=== PATIENT | female | born 1975 ===

== ENCOUNTER 2022-05-20 12:05 | Outpatient (REF) | payer OTHER, SELFPAY ==
--- NOTE | ~2022-05-20 | XR_ITS ---
EXAMINATION: XR BILATERAL SHOULDER XR BILATERAL HAND AND WRIST XR BILATERAL ANKLE XR BILATERAL FOOT CLINICAL INFORMATION: Spondylosis without myelopathy or radiculopathy. Pain. COMPARISON: None. TECHNIQUE: 3 views bilateral feet, 2 views bilateral ankle, 5 views each hand/wrist and 5 views each shoulder. FINDINGS: BILATERAL SHOULDER: There is normal glenohumeral and AC joint alignment. No bony erosive changes, loose bodies or periapical spurring. No soft tissue abnormality. BILATERAL HAND/WRIST. The intercarpal, carpometacarpal and interphalangeal joints are maintained normal. No bony erosive changes, acute fracture or loose bodies seen. No periosteal spurring. There is mild dorsal left soft tissue swelling. BILATERAL ANKLE: There is bilateral small calcaneal heel osteophytes. No visible acute fracture, dislocation or subluxation seen. The ankle mortise and subtalar joints are normal. There is bimalleolar soft tissue swelling. BILATERAL FOOT: There is a dorsal distal foot soft tissue swelling. No visible acute fracture, dislocation or subluxation seen. The joint spaces are maintained normal. The soft tissues are normal. XR/XR ankle LT min 3V IMPRESSION: Bilateral calcaneal heel enthesophytes. No visible acute fracture or dislocation seen. There is bilateral dorsal distal foot soft tissue swelling. Bilateral dorsal hand soft tissue swelling. No visible acute fracture, dislocation or subluxation seen. There is no visible fracture or dislocation involving the wrist or the hand. No bony abnormality is seen either. Unremarkable bilateral shoulders.
--- NOTE | ~2022-05-20 | XR_ITS ---
EXAMINATION: XR BILATERAL SHOULDER XR BILATERAL HAND AND WRIST XR BILATERAL ANKLE XR BILATERAL FOOT CLINICAL INFORMATION: Spondylosis without myelopathy or radiculopathy. Pain. COMPARISON: None. TECHNIQUE: 3 views bilateral feet, 2 views bilateral ankle, 5 views each hand/wrist and 5 views each shoulder. FINDINGS: BILATERAL SHOULDER: There is normal glenohumeral and AC joint alignment. No bony erosive changes, loose bodies or periapical spurring. No soft tissue abnormality. BILATERAL HAND/WRIST. The intercarpal, carpometacarpal and interphalangeal joints are maintained normal. No bony erosive changes, acute fracture or loose bodies seen. No periosteal spurring. There is mild dorsal left soft tissue swelling. BILATERAL ANKLE: There is bilateral small calcaneal heel osteophytes. No visible acute fracture, dislocation or subluxation seen. The ankle mortise and subtalar joints are normal. There is bimalleolar soft tissue swelling. BILATERAL FOOT: There is a dorsal distal foot soft tissue swelling. No visible acute fracture, dislocation or subluxation seen. The joint spaces are maintained normal. The soft tissues are normal. XR/XR foot RT min 3V IMPRESSION: Bilateral calcaneal heel enthesophytes. No visible acute fracture or dislocation seen. There is bilateral dorsal distal foot soft tissue swelling. Bilateral dorsal hand soft tissue swelling. No visible acute fracture, dislocation or subluxation seen. There is no visible fracture or dislocation involving the wrist or the hand. No bony abnormality is seen either. Unremarkable bilateral shoulders.
--- NOTE | ~2022-05-20 | XR_ITS ---
EXAMINATION: XR BILATERAL SHOULDER XR BILATERAL HAND AND WRIST XR BILATERAL ANKLE XR BILATERAL FOOT CLINICAL INFORMATION: Spondylosis without myelopathy or radiculopathy. Pain. COMPARISON: None. TECHNIQUE: 3 views bilateral feet, 2 views bilateral ankle, 5 views each hand/wrist and 5 views each shoulder. FINDINGS: BILATERAL SHOULDER: There is normal glenohumeral and AC joint alignment. No bony erosive changes, loose bodies or periapical spurring. No soft tissue abnormality. BILATERAL HAND/WRIST. The intercarpal, carpometacarpal and interphalangeal joints are maintained normal. No bony erosive changes, acute fracture or loose bodies seen. No periosteal spurring. There is mild dorsal left soft tissue swelling. BILATERAL ANKLE: There is bilateral small calcaneal heel osteophytes. No visible acute fracture, dislocation or subluxation seen. The ankle mortise and subtalar joints are normal. There is bimalleolar soft tissue swelling. BILATERAL FOOT: There is a dorsal distal foot soft tissue swelling. No visible acute fracture, dislocation or subluxation seen. The joint spaces are maintained normal. The soft tissues are normal. XR/XR ankle RT min 3V IMPRESSION: Bilateral calcaneal heel enthesophytes. No visible acute fracture or dislocation seen. There is bilateral dorsal distal foot soft tissue swelling. Bilateral dorsal hand soft tissue swelling. No visible acute fracture, dislocation or subluxation seen. There is no visible fracture or dislocation involving the wrist or the hand. No bony abnormality is seen either. Unremarkable bilateral shoulders.
--- NOTE | ~2022-05-20 | XR_ITS ---
EXAMINATION: XR BILATERAL SHOULDER XR BILATERAL HAND AND WRIST XR BILATERAL ANKLE XR BILATERAL FOOT CLINICAL INFORMATION: Spondylosis without myelopathy or radiculopathy. Pain. COMPARISON: None. TECHNIQUE: 3 views bilateral feet, 2 views bilateral ankle, 5 views each hand/wrist and 5 views each shoulder. FINDINGS: BILATERAL SHOULDER: There is normal glenohumeral and AC joint alignment. No bony erosive changes, loose bodies or periapical spurring. No soft tissue abnormality. BILATERAL HAND/WRIST. The intercarpal, carpometacarpal and interphalangeal joints are maintained normal. No bony erosive changes, acute fracture or loose bodies seen. No periosteal spurring. There is mild dorsal left soft tissue swelling. BILATERAL ANKLE: There is bilateral small calcaneal heel osteophytes. No visible acute fracture, dislocation or subluxation seen. The ankle mortise and subtalar joints are normal. There is bimalleolar soft tissue swelling. BILATERAL FOOT: There is a dorsal distal foot soft tissue swelling. No visible acute fracture, dislocation or subluxation seen. The joint spaces are maintained normal. The soft tissues are normal. XR/XR foot LT min 3V IMPRESSION: Bilateral calcaneal heel enthesophytes. No visible acute fracture or dislocation seen. There is bilateral dorsal distal foot soft tissue swelling. Bilateral dorsal hand soft tissue swelling. No visible acute fracture, dislocation or subluxation seen. There is no visible fracture or dislocation involving the wrist or the hand. No bony abnormality is seen either. Unremarkable bilateral shoulders.
--- NOTE | ~2022-05-20 | XR_ITS ---
EXAMINATION: XR BILATERAL SHOULDER XR BILATERAL HAND AND WRIST XR BILATERAL ANKLE XR BILATERAL FOOT CLINICAL INFORMATION: Spondylosis without myelopathy or radiculopathy. Pain. COMPARISON: None. TECHNIQUE: 3 views bilateral feet, 2 views bilateral ankle, 5 views each hand/wrist and 5 views each shoulder. FINDINGS: BILATERAL SHOULDER: There is normal glenohumeral and AC joint alignment. No bony erosive changes, loose bodies or periapical spurring. No soft tissue abnormality. BILATERAL HAND/WRIST. The intercarpal, carpometacarpal and interphalangeal joints are maintained normal. No bony erosive changes, acute fracture or loose bodies seen. No periosteal spurring. There is mild dorsal left soft tissue swelling. BILATERAL ANKLE: There is bilateral small calcaneal heel osteophytes. No visible acute fracture, dislocation or subluxation seen. The ankle mortise and subtalar joints are normal. There is bimalleolar soft tissue swelling. BILATERAL FOOT: There is a dorsal distal foot soft tissue swelling. No visible acute fracture, dislocation or subluxation seen. The joint spaces are maintained normal. The soft tissues are normal. XR/XR hand wrist LT IMPRESSION: Bilateral calcaneal heel enthesophytes. No visible acute fracture or dislocation seen. There is bilateral dorsal distal foot soft tissue swelling. Bilateral dorsal hand soft tissue swelling. No visible acute fracture, dislocation or subluxation seen. There is no visible fracture or dislocation involving the wrist or the hand. No bony abnormality is seen either. Unremarkable bilateral shoulders.
--- NOTE | ~2022-05-20 | XR_ITS ---
EXAMINATION: XR BILATERAL SHOULDER XR BILATERAL HAND AND WRIST XR BILATERAL ANKLE XR BILATERAL FOOT CLINICAL INFORMATION: Spondylosis without myelopathy or radiculopathy. Pain. COMPARISON: None. TECHNIQUE: 3 views bilateral feet, 2 views bilateral ankle, 5 views each hand/wrist and 5 views each shoulder. FINDINGS: BILATERAL SHOULDER: There is normal glenohumeral and AC joint alignment. No bony erosive changes, loose bodies or periapical spurring. No soft tissue abnormality. BILATERAL HAND/WRIST. The intercarpal, carpometacarpal and interphalangeal joints are maintained normal. No bony erosive changes, acute fracture or loose bodies seen. No periosteal spurring. There is mild dorsal left soft tissue swelling. BILATERAL ANKLE: There is bilateral small calcaneal heel osteophytes. No visible acute fracture, dislocation or subluxation seen. The ankle mortise and subtalar joints are normal. There is bimalleolar soft tissue swelling. BILATERAL FOOT: There is a dorsal distal foot soft tissue swelling. No visible acute fracture, dislocation or subluxation seen. The joint spaces are maintained normal. The soft tissues are normal. XR/XR hand wrist RT IMPRESSION: Bilateral calcaneal heel enthesophytes. No visible acute fracture or dislocation seen. There is bilateral dorsal distal foot soft tissue swelling. Bilateral dorsal hand soft tissue swelling. No visible acute fracture, dislocation or subluxation seen. There is no visible fracture or dislocation involving the wrist or the hand. No bony abnormality is seen either. Unremarkable bilateral shoulders.
--- NOTE | ~2022-05-20 | XR_ITS ---
EXAMINATION: XR BILATERAL SHOULDER XR BILATERAL HAND AND WRIST XR BILATERAL ANKLE XR BILATERAL FOOT CLINICAL INFORMATION: Spondylosis without myelopathy or radiculopathy. Pain. COMPARISON: None. TECHNIQUE: 3 views bilateral feet, 2 views bilateral ankle, 5 views each hand/wrist and 5 views each shoulder. FINDINGS: BILATERAL SHOULDER: There is normal glenohumeral and AC joint alignment. No bony erosive changes, loose bodies or periapical spurring. No soft tissue abnormality. BILATERAL HAND/WRIST. The intercarpal, carpometacarpal and interphalangeal joints are maintained normal. No bony erosive changes, acute fracture or loose bodies seen. No periosteal spurring. There is mild dorsal left soft tissue swelling. BILATERAL ANKLE: There is bilateral small calcaneal heel osteophytes. No visible acute fracture, dislocation or subluxation seen. The ankle mortise and subtalar joints are normal. There is bimalleolar soft tissue swelling. BILATERAL FOOT: There is a dorsal distal foot soft tissue swelling. No visible acute fracture, dislocation or subluxation seen. The joint spaces are maintained normal. The soft tissues are normal. XR/XR shoulder RT min 2V IMPRESSION: Bilateral calcaneal heel enthesophytes. No visible acute fracture or dislocation seen. There is bilateral dorsal distal foot soft tissue swelling. Bilateral dorsal hand soft tissue swelling. No visible acute fracture, dislocation or subluxation seen. There is no visible fracture or dislocation involving the wrist or the hand. No bony abnormality is seen either. Unremarkable bilateral shoulders.
--- NOTE | ~2022-05-20 | XR_ITS ---
EXAMINATION: XR BILATERAL SHOULDER XR BILATERAL HAND AND WRIST XR BILATERAL ANKLE XR BILATERAL FOOT CLINICAL INFORMATION: Spondylosis without myelopathy or radiculopathy. Pain. COMPARISON: None. TECHNIQUE: 3 views bilateral feet, 2 views bilateral ankle, 5 views each hand/wrist and 5 views each shoulder. FINDINGS: BILATERAL SHOULDER: There is normal glenohumeral and AC joint alignment. No bony erosive changes, loose bodies or periapical spurring. No soft tissue abnormality. BILATERAL HAND/WRIST. The intercarpal, carpometacarpal and interphalangeal joints are maintained normal. No bony erosive changes, acute fracture or loose bodies seen. No periosteal spurring. There is mild dorsal left soft tissue swelling. BILATERAL ANKLE: There is bilateral small calcaneal heel osteophytes. No visible acute fracture, dislocation or subluxation seen. The ankle mortise and subtalar joints are normal. There is bimalleolar soft tissue swelling. BILATERAL FOOT: There is a dorsal distal foot soft tissue swelling. No visible acute fracture, dislocation or subluxation seen. The joint spaces are maintained normal. The soft tissues are normal. XR/XR shoulder LT min 2V IMPRESSION: Bilateral calcaneal heel enthesophytes. No visible acute fracture or dislocation seen. There is bilateral dorsal distal foot soft tissue swelling. Bilateral dorsal hand soft tissue swelling. No visible acute fracture, dislocation or subluxation seen. There is no visible fracture or dislocation involving the wrist or the hand. No bony abnormality is seen either. Unremarkable bilateral shoulders.
[2022-05-20 12:58] LABS: MANUAL DIFF FLAG NO
[2022-05-20 13:16] LABS: Basophils Absolute Auto 0.1 X10*3/uL (0.0-0.2); Basophils Percent Auto 0.9 % (0-2); Eosinophils Absolute Auto 0.3 X10*3/uL (0.0-0.4); Eosinophils Percent Auto 4.1 % (0-4); Hematocrit 46.5 % (37.0-47.0); Imm Gran Abs Auto 0.02 X10*3/uL (0.00-0.03); Imm Gran Pct Auto 0.3 % (0.0-0.4); Lymphocytes Absolute Auto 1.5 X10*3/uL (1.2-4.9); Lymphocytes Percent Auto 21.4 % (20-40); Mean Corpuscular HGB Conc 34.4 g/dl (31.0-35.0); Mean Corpuscular Hemoglobin 30.5 pg (27.0-33.0); Mean Corpuscular Volume 88.6 fL (80.0-98.0); Mean Platelet Volume 9.1 fL (9.4-12.3); Monocytes Absolute Auto 0.6 X10*3/uL (0.1-1.2); Monocytes Percent Auto 8.7 % (2-11); Neutrophils Absolute Auto 4.5 x10*3/uL (2.0-8.3); Neutrophils Percent Auto 64.6 % (45-73); Platelet Count 265 X10*3/uL (160-400); Red Blood Count 5.25 X10*6/uL (4.20-5.50); Red Cell Distribution Width 12.1 % (11.0-16.0); White Blood Count 6.9 X10*3/uL (4.8-10.8)
[2022-05-20 13:24] LABS: Appearance Urine Clear; Color Urine Dark Yellow; Glucose Urine UA 250 mg/dL (Negative); Leukocyte Esterase Urine Negative (Negative); Nitrite Urine Negative (Negative); Urine Blood Negative (Negative); Urine Ketones Negative (Negative); Urine Protein Negative (Neg-Trace)
[2022-05-20 13:26] LABS: Bacteria Urine None Seen (None Seen); Hyaline Casts Urine 0-2 /LPF (0-2); RBC Urine 0-2 /HPF (0-2); Squamous Epithelial Cell Urine 0-2 /HPF (0-2); WBC Urine 0-5 /HPF (0-5)
[2022-05-20 13:45] LABS: Alanine Aminotransferase 56 U/L (0-31); Albumin Level 4.5 g/dL (3.5-5.0); Alkaline Phosphatase 112 U/L (39-117); Anion Gap 12 (12-20); Aspartate Amino Transferase 33 U/L (5-31); Bilirubin Total 0.7 mg/dL (0.0-1.0); Blood Urea Nitrogen 16 mg/dL (9-16); C Reactive Protein 0.35 mg/dL (< or = 0.50); Calcium 9.6 mg/dL (8.4-10.2); Carbon Dioxide 27 mmol/L (22-29); Chloride 106 mmol/L (96-108); Estimated Glomerular Filt Rate > 60; Glucose Random 96 mg/dL (60-115); Potassium 3.7 mmol/L (3.3-5.1); Sodium 141 mmol/L (135-145); Total Protein 7.6 g/dL (6.5-8.0)
[2022-05-20 14:13] LABS: Erythrocyte Sedimentation Rate 9 MM/HR (0-20)
[2022-05-20 14:25] LABS: Creatinine Urine 153.03 mg/dL; Protein/Creatinine Ratio, Ur 0.06 (<0.2); Total Protein Urine Random 9 mg/dL (<12)
[2022-05-21 14:25] LABS: HIV AB/AG Nonreactive (Nonreactive)
[2022-05-21 15:37] LABS: Complement C3 157 mg/dL (83-193)
[2022-05-24 09:47] LABS: Anti Nuclear Antibody Screen NEGATIVE (NEGATIVE)
[2022-05-24 13:46] LABS: Anti DNA DS Antibody <1 IU/mL; Antibody to SS-A Antigen <1.0 NEG AI (<1.0 NEG); Antibody to SS-B Antigen <1.0 NEG AI (<1.0 NEG); SM/Ribonucleoprotein Ab <1.0 NEG AI (<1.0 NEG); Smith Protein <1.0 NEG AI (<1.0 NEG)
[2022-05-24 15:11] LABS: IgA 200 mg/dL (47-310); IgG 1599 mg/dL (600-1640); IgM 77 mg/dL (50-300)
[2022-05-26 14:41] LABS: Mitochondrial Antibodies NEGATIVE (NEGATIVE)
[2022-05-26 21:37] LABS: Liver Kidney Microsomal Ab <=20.0 U (<=20.0)
[2022-05-27 23:57] LABS: Smooth Muscle Antibody <20 U (<20)
[2022-05-28 05:16] LABS: Angiotensin Converting Enzyme 69 U/L (9-67)
== END 2022-05-20 12:06 | disposition home or self-care (01) ==
LOC: HO.10HDL 12:05
PROVIDERS: Visit Provider Student in an Organized Health Care Education/Training Program
DX: M47.819 Spondylosis without myelopathy or radiculopathy, site unspecified (principal); M79.7 Fibromyalgia; M13.80 Other specified arthritis, unspecified site; R74.01 Elevation of levels of liver transaminase levels; Z11.59 Encounter for screening for other viral diseases; Z79.899 Other long term (current) drug therapy; Z79.52 Long term (current) use 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
CPT/HCPCS: 36415; 73030; 73110; 73130; 73610; 73630; 80053; 81001; 82164; 82550; 82784; 84156; 85025; 85652; 86015; 86038; 86039; 86140; 86160; 86225; 86235; 86255; 86256; 86334; 86376; 87389; 99202

== ENCOUNTER 2022-06-02 15:07 | Outpatient (REF) | payer OTHER, SELFPAY ==
--- NOTE | ~2022-06-02 | MR_ITS ---
EXAMINATION: MR SACROILIAC JOINTS/PELVIS WITHOUT CONTRAST, BILATERAL CLINICAL INFORMATION: Spondylosis without myelopathy. Patient reports back and bilateral leg pain, right leg numbness. COMPARISON: None TECHNIQUE: MRI of the pelvis was performed without contrast on a high-field MRI scanner utilizing sacroiliac joint protocol with axial and coronal sequences perpendicular and parallel to the plane of the sacrum. FINDINGS: BONES/JOINTS: Right Sacroiliac Joint: There is subtle decreased T1 and T2 signal surrounding the anterior superior portion of the sacroiliac joint. There is mild marrow edema on the sacral side of the joint. No discrete fracture line. Minimal, if any, marginal osteophytes. No joint effusion. No marginal erosions. No surrounding soft tissue edema. Left Sacroiliac Joint: Normal. Remaining visualized bones are normal. Partially visualized hip joints and symphysis pubis are unremarkable. In the partially visualized lumbosacral spine, there are degenerative disc changes present at L5-S1 with mild bulging of the disc. There is also at least mild bilateral facet arthrosis at L5-S1. MUSCLES/TENDONS: Unremarkable. NEUROVASCULAR STRUCTURES: Unremarkable. SUBCUTANEOUS SOFT TISSUES: Normal. INTRAPELVIC SOFT TISSUES: Unremarkable. MR/MR sacroiliac joint AMIRA wo con IMPRESSION: 1. Mild abnormality of the right sacroiliac joint with an appearance most compatible with mild osteoarthritis. Possible concomitant stress reaction in the sacrum. No discrete fracture line. 2. Mild spondylosis in the partially visualized lumbosacral spine with degenerative changes present at L5-S1.
== END 2022-06-02 15:08 | disposition home or self-care (01) ==
LOC: HO.MRI 15:07
PROVIDERS: Visit Provider Student in an Organized Health Care Education/Training Program
DX: M47.819 Spondylosis without myelopathy or radiculopathy, site unspecified (principal)
CPT/HCPCS: 72195

== ENCOUNTER 2022-06-03 09:10 | Outpatient (REF) | payer OTHER, SELFPAY ==
--- NOTE | ~2022-06-03 | MM_ITS ---
EXAMINATION: BONE DENSITOMETRY CLINICAL INDICATION: Long-term, current, use 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. COMPARISON: None (current study represents initial baseline exam). TECHNIQUE: Using a [employer] (PRIMP) DXA System (software version: 13.1) manufactured by [employer], dual-energy x-ray absorptiometry was performed of the lumbar spine and left hip. The images are of good technical quality. Summary results are attached. FINDINGS: AP SPINE L1-L4: BMD 1.110 g/cm2, Z-score -1.5, T-score -0.6, normal. LEFT FEMUR, NECK: BMD 0.888 g/cm2, Z-score -1.1, T-score -1.1, osteopenia. LEFT FEMUR, TOTAL: BMD 1.019 g/cm2, Z-score -0.3, T-score 0.1, normal. IDENTIFIED RISK FACTORS: Early menopause, secondary osteoporosis, rheumatoid arthritis, osteoporosis, recurrent falls, height loss, hysterectomy, bilateral oophorectomy. HISTORY OF FRACTURE: None listed. MEDICATIONS: None listed. MM/XR DEXA axial skeleton IMPRESSION: 1. DIAGNOSIS: Osteopenia based on the lowest T-score value of -1.1 in the femoral neck applying World Health Organization criteria. 2. 10-YEAR FRACTURE RISK PREDICTION, FRAX: Major osteoporotic fracture (clinical spine, forearm, hip or shoulder) 2.2%. Hip fracture 0.1%. 3. Treatment Recommendations: NOF guidelines recommend consideration for treatment in postmenopausal women and men age 50 and older presenting with the following: -A hip or vertebral (clinical or morphometric) fracture. -T-score less than or equal to -2.5 at the femoral neck or spine after appropriate evaluation to exclude secondary causes. -Low bone mass at the hip or spine and a 10-year fracture probability by FRAX of greater than or equal to 3% for hip fracture or greater than or equal to 20% for major osteoporotic fracture based on the [place] adapted WHO algorithm. 4. Other Recommendations: All treatment decisions require clinical judgment and consideration of individual patient factors, including patient preferences, comorbidities, previous drug use, risk factors not captured in the FRAX model (e.g. frailty, falls, vitamin D deficiency, increased bone turnover, interval significant decline in bone density) and possible under or overestimation of fracture risk by FRAX. Additional medical evaluation for secondary cause of low bone mineral density may be appropriate. FUTURE SCAN RECOMMENDATION: People with diagnosed cases of osteoporosis or at high risk for fracture should have regular bone mineral density tests. For patients eligible for Medicare, routine testing is allowed once every 2 years. The testing frequency can be increased to one year for patients who have rapidly progressing disease, those who are receiving or discontinuing medical therapy to restore bone mass, or have additional risk factors.
== END 2022-06-03 09:11 | disposition home or self-care (01) ==
LOC: HO.MAMMO 09:10
PROVIDERS: PCP Internal Medicine; Visit Provider Student in an Organized Health Care Education/Training Program
DX: Z13.820 Encounter for screening for osteoporosis (principal); Z79.52 Long term (current) use 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; Z78.0 Asymptomatic menopausal state
CPT/HCPCS: 77080

== ENCOUNTER → 2022-07-06 14:19 | Outpatient (BNVA) | payer MEDICAID, SELFPAY | PROVIDERS: PCP Internal Medicine; Visit Provider Student in an Organized Health Care Education/Training Program | DX: M06.00 Rheumatoid arthritis without rheumatoid factor, unspecified site (principal); M79.7 Fibromyalgia; M12.812 Other specific arthropathies, not elsewhere classified, left shoulder; Z79.52 Long term (current) use 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 | CPT/HCPCS: 99212 ==

== ENCOUNTER → 2022-07-15 09:02 | Outpatient (BNVA) | payer MEDICAID, SELFPAY | PROVIDERS: PCP Internal Medicine; Visit Provider Student in an Organized Health Care Education/Training Program | DX: Z13.89 Encounter for screening for other disorder (principal) ==

== ENCOUNTER → 2022-10-05 13:02 | Outpatient (BNVA) | payer OTHER, SELFPAY | PROVIDERS: PCP Internal Medicine; Visit Provider Student in an Organized Health Care Education/Training Program | DX: M06.00 Rheumatoid arthritis without rheumatoid factor, unspecified site (principal); M12.812 Other specific arthropathies, not elsewhere classified, left shoulder; M65.4 Radial styloid tenosynovitis [de Quervain]; G56.03 Carpal tunnel syndrome, bilateral upper limbs; Z79.52 Long term (current) use 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 | CPT/HCPCS: 99212 ==

== ENCOUNTER 2022-10-27 12:57 | Outpatient (REF) | payer OTHER, SELFPAY ==
--- NOTE | 2022-10-27 09:15 | EMG_ITS ---
Please see scanned EMG / Nerve Conduction Report. MTDD
== END 2022-10-27 12:58 | disposition home or self-care (01) ==
LOC: HO.NEURO 12:57
PROVIDERS: PCP Internal Medicine; Visit Provider Student in an Organized Health Care Education/Training Program
DX: G56.03 Carpal tunnel syndrome, bilateral upper limbs (principal)
CPT/HCPCS: 95885; 95913

== ENCOUNTER 2022-11-01 08:04 | Outpatient (REF) | payer OTHER, SELFPAY ==
--- NOTE | ~2022-11-01 | MR_ITS ---
EXAMINATION: MRI HAND WITHOUT CONTRAST, RIGHT INDICATION: Rheumatoid arthritis without rheumatoid factor, unspecified site. M06.00 COMPARISON: 05/20/2022 TECHNIQUE: Multiplanar MR imaging was obtained through the right hand on a 1.5 Fernanda magnet without intravenous contrast material. FINDINGS: Mild osteoarthritis is seen at the 1st CMC and triscaphe joints with nonuniform chondral thinning and marginal osteophytes. Additional mild osteoarthritis is suspected at the distal radioulnar joint. Small subchondral cystic focus in the scaphoid is likely degenerative in nature due to very mild radiocarpal osteoarthritis. Small foci of subcortical edema and cystic change at the index and long finger metacarpal heads are favored to be degenerative in nature. Primary erosions in this region less likely in the absence of erosions elsewhere. No joint effusions. No appreciable synovitis. Musculature is normal in signal intensity. No atrophy or edema. Tendons are intact without tears, tendinosis, or tenosynovitis. There is a small 6 x 4 x 3 mm ganglion cyst at the medial margin of the thumb MCP joint. The median nerve is thickened just proximal to the level of the carpal tunnel with a cross-sectional area of 0.3 square cm and slightly increased intrasubstance signal. Guyon's canal is unremarkable. MR/MR hand RT wo con IMPRESSION: 1. 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 2. Small foci of subcortical edema and cystic change at the index and long finger metacarpal heads are favored to be degenerative in nature. Primary erosions are felt to be unlikely. 3. Small 6 mm ganglion cyst at the medial margin of the thumb MCP joint. 4. Focal thickening and increased signal in the median nerve just proximal to the carpal tunnel. Recommend correlation for symptoms of carpal tunnel syndrome.
== END 2022-11-01 08:05 | disposition home or self-care (01) ==
LOC: HO.MRI 08:04
PROVIDERS: PCP Internal Medicine; Visit Provider Student in an Organized Health Care Education/Training Program
DX: M06.00 Rheumatoid arthritis without rheumatoid factor, unspecified site (principal)
CPT/HCPCS: 73218

== ENCOUNTER → 2022-11-03 08:21 | Outpatient (BNVA) | payer OTHER, SELFPAY | PROVIDERS: PCP Internal Medicine; Visit Provider Orthopaedic Surgery | DX: G56.03 Carpal tunnel syndrome, bilateral upper limbs (principal); M06.00 Rheumatoid arthritis without rheumatoid factor, unspecified site; M79.7 Fibromyalgia | CPT/HCPCS: 99202 ==

== ENCOUNTER 2022-11-11 11:33 | Day surgery (SDC) | payer OTHER, SELFPAY ==
--- NOTE | 2022-11-11 10:44 | W.PM.OPN ---
Operative Note Operative Note Date of Service: 11/11/22 Narrative: Preop diagnosis: 1. right Carpal tunnel syndrome Postop diagnosis: same Procedure: 1. right Carpal tunnel release Surgeon: Betina Dimas MD Anesthesia: local block using 1% lidocaine with epinephrine Findings: Thickened transverse carpal ligament. EBL: Less than 5 mL Specimens: None Complications: None Disposition: Brought to recovery room in stable condition Plan: Follow-up for 10-14 days for wound check and suture removal Indications: The patient is 47 years old, with right carpal tunnel syndrome that has been unresponsive to nonoperative management. The risks and benefits of operative treatment including but not limited to risk of damage to blood vessels, nerves, tendons, infection, persistent pain, persistent symptoms, or possible need for additional surgery were discussed with the patient and the patient wishes to proceed with surgery. Procedure: Once consent was obtained a local block was performed using a combination of 1% lidocaine with epinephrine. The patient was then brought back to the operating suite and placed on the operative table in supine position. The right upper extremity was prepped and draped in a standard surgical fashion. Once assured that we had a good block, a 2.0 cm longitudinal incision was made centered over the carpal tunnel. The incision was made through the skin to the subcutaneous tissues using a #15 blade. Dissection was made down to the level of the transverse carpal ligament with care being taken to protect the palmar cutaneous nerve. Once the transverse carpal ligament was clearly visualized, a longitudinal incision was made in the transverse carpal ligament 1st using a #15 blade, then using tenotomy scissors under direct visualization. Care was taken to look for and protect the motor branch of the median nerve when seen in this area. Once satisfied with our carpal tunnel release the wound was copiously irrigated with normal saline and hemostasis was obtained with a brief period of local pressure. The skin edges were reapproximated with some 5.0 nylon suture material and a sterile dressing was applied. The patient appears to have tolerated the procedure well and with no complications. All digits were well vascularized at the conclusion of the case.
[2022-11-11 13:02] VITALS: BMI 44.4
[2022-11-11 13:03] VITALS: BP 149/77; PULSE 68; RESP 18; TEMP 36.1; O2SAT 98
--- NOTE | 2022-11-11 14:39 | MHC.SHP ---
Pre-Procedural Eval Section A Date of Service: 11/11/22 The patient is an INPATIENT: No Changes since office visit: No Cold of Flu in the past 2 weeks, No New Medical Problems, No Changes in Medication and No Patient answered all questions The History & Physical has been completed within 30 days and I have reviewed it.: Yes Section B Chief Complaint: Carpal tunnel syndrome, right upper limb Allergies: Allergies Allergy/AdvReac Type Severity Reaction Status Date / Time No Known Allergies Allergy Verified 11/03/22 08:29 Plan I have reviewed the history and physical and performed a pertinent physical examination on my patient. No changes have occurred unless specified. Time Spent With Patient Time: Total time managing care of this patient today ____ minutes.
[2022-11-11 14:53] VITALS: BP 155/84; PULSE 72; RESP 16; O2SAT 97
== END 2022-11-11 14:55 | disposition home or self-care (01) ==
PROVIDERS: PCP Internal Medicine; Visit Provider Orthopaedic Surgery
PROC: (CPT 64721; principal; 2022-11-11 13:40)
DX: G56.01 Carpal tunnel syndrome, right upper limb (principal); R20.0 Anesthesia of skin; M79.7 Fibromyalgia; M06.00 Rheumatoid arthritis without rheumatoid factor, unspecified site; M13.0 Polyarthritis, unspecified; M47.816 Spondylosis without myelopathy or radiculopathy, lumbar region; I10 Essential (primary) hypertension; Z79.899 Other long term (current) drug therapy; Z98.890 Other specified postprocedural states
CPT/HCPCS: 64721; J0171

== ENCOUNTER → 2022-11-23 09:45 | Outpatient (BNVA) | payer OTHER, SELFPAY | PROVIDERS: PCP Internal Medicine; Visit Provider Orthopaedic Surgery | DX: Z48.811 Encounter for surgical aftercare following surgery on the nervous system (principal); G56.02 Carpal tunnel syndrome, left upper limb | CPT/HCPCS: 99212 ==

== ENCOUNTER → 2022-11-26 08:35 | Outpatient (BNVA) | payer OTHER, SELFPAY | PROVIDERS: PCP Internal Medicine; Visit Provider Physician Assistant | DX: Z48.811 Encounter for surgical aftercare following surgery on the nervous system (principal) | CPT/HCPCS: 99212 ==

== ENCOUNTER → 2022-11-30 11:20 | Outpatient (BNVA) | payer OTHER, SELFPAY | PROVIDERS: PCP Internal Medicine; Visit Provider Orthopaedic Surgery | DX: Z48.811 Encounter for surgical aftercare following surgery on the nervous system (principal) | CPT/HCPCS: 99212 ==

== ENCOUNTER → 2022-12-29 11:29 | Outpatient (BNVA) | payer OTHER, SELFPAY | PROVIDERS: Visit Provider Orthopaedic Surgery | DX: Z48.811 Encounter for surgical aftercare following surgery on the nervous system (principal) | CPT/HCPCS: 99212 ==

== ENCOUNTER 2023-01-28 09:38 | Outpatient (AMB) | payer OTHER, SELFPAY ==
--- NOTE | 2023-01-28 09:43 | A.OFFVIS_ITS ---
Intake Vital Signs 01/28/23 09:44 Height 4 ft 11 in Weight 220 lb 7.396 oz BMI 44.5 BP 118/78 Blood Pressure Location Rt radial Position Sitting Pulse 73 Pulse Source Pulse Oximeter Temp 97.2 F Temp Source Skin Pulse Oximetry (%) 98 Intake Visit Reasons: RA Intake Note: * Pt seen today for RA follow up. 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 Accompanied by: Self / Same As Patient Allergies No Known Allergies Allergy (Verified 01/28/23 09:48) Medication List - Last Reconciled 01/28/23 by Kushal Bateman MD albuterol sulfate 90 mcg/actuation 2 puffs inhalation QID PRN amitriptyline 75 mg (3 x 25 mg) PO BEDTIME 30 days aspirin 81 mg PO DAILY ergocalciferol (vitamin D2) (Vitamin D2) 1,250 mcg PO QWEEK fluticasone propion-salmeterol 230-21 mcg/actuation (Advair HFA) 2 puffs inhalation BID furosemide 40 mg PO DAILY isosorbide mononitrate ER 30 mg PO DAILY loratadine 10 mg PO DAILY lorazepam 0.5 mg PO QPM magnesium oxide 400 mg PO BEDTIME 30 days meclizine 25 mg PO TID PRN metoclopramide HCl 5 mg PO TID montelukast 10 mg PO DAILY omeprazole 20 mg PO DAILY ondansetron HCl mg PO riboflavin (vitamin B2) 400 mg PO DAILY 30 days rosuvastatin 5 mg PO DAILY valacyclovir 500 mg PO DAILY HPI HPI Comments History of Present Illness Details 48-year-old female with seronegative RA returns for follow-up. She was evaluated by hand surgeon Dr. Dimas and had carpal tunnel release for her right hand and planned to go for left hand carpal tunnel release soon. States that the numbness and sensitivity in her right hand fingers is better but she feels some pulling sensation where she had the surgery. Continues to have diffuse pain. She has mid to lower back pain radiating to words the back of her buttocks and thighs. Initial history: This is a 47-year-old female with a past medical history of anxiety, asthma, erythrocytosis, fibromyalgia, inflammatory arthritis who presents for evaluation diffuse joint pain. Patient has been having low back pain for many years. She has had numerous imaging studies. She has been on various treatment methods including steroids, gabapentin physical therapy, steroid injections without any significant relief. Few years ago patient has been having pain swelling and stiffness of her hand. The swelling and stiffness are generally worse in the morning lasting hours. Prednisone tapers would help the pain in her hand but not her back. She gained 30 lb that she attributes to steroid exposure. Patient could not get methotrexate as she had transaminitis. She has biopsy proven HEATH. He states that in August of this year she was admitted with abdominal bloating and fevers. At that time her liver enzymes were significantly elevated. She stated that she had a liver biopsy at that time, but she is not sure of the results. Humira was approved for the patient to treat her inflammatory arthritis however since patient was not Humira was not started. She states that mother has sarcoidosis and rheumatoid arthritis and her father has rheumatoid arthritis. 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 Erythrocytosis Gastroparesis HTN (hypertension) Ovarian cancer Polyarthropathy, inflammatory Screening for viral disease Shoulder tendonitis Surgical History History of carpal tunnel release History of total hysterectomy with bilateral salpingo-oophorectomy (BSO) Hx of cholecystectomy S/P silicone breast implant Family History Mother Glaucoma Rheumatoid arthritis Hypertension Sarcoidosis Father History of thyroid disorder Hypertension Diabetes Rheumatoid arthritis Psoriasis Heart disease Paternal Grandmother Diabetes Heart disease Social History Household Members: None Alcohol intake: never Patient Tobacco Use Status: Never used Tobacco Current occupational status: unemployed Current occupation: right hand Review of [employer] Reports neck pain Musc Reports back pain, Reports arthralgias, Reports joint swelling, Reports neck pain and Reports stiffness Physical Exam Vital Signs: Last Vital Signs Temp 97.2 F 01/28/23 09:44 Pulse 73 01/28/23 09:44 BP 118/78 01/28/23 09:44 Pulse Ox 98 01/28/23 09:44 BMI result Body Mass Index 44.5 Const Other: Cushingoid General: cooperative, healthy appearing, comfortable and no acute distress Nutritional Appearance: obese morbidly obese Orientation/consciousness: patient oriented x3 Limitations: no limitations HEENT Other: Garza facies Head: Yes normocephalic and Yes atraumatic Resp Effort & Inspection: normal respiratory effort and able to speak in complete sentences Neuro General: patient oriented x3 Extrem Other: Hands: Diffuse puffiness of her fingers. 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 POSITIVE?Abnormal? [email or web address] POSITIVE?Abnormal? https: [email or web address] Hepatitis B surface antigen NEGATIVE NEGATIVE NEGATIVE [email or web address] Comment:?Over the counter supplements containing high doses of biotin may interfere with this assay. ?If interference is suspected, patients shoud be retested after refraining from biotin supplements for 72 hours. Hepatitis C Virus Diagnostic NEGATIVE NEGATIVE HEPATITIS A ANTIBODY TOTAL NEGATIVE NEGATIVE NEGATIVE [email or web address] Comment:?Over the counter supplements containing high doses of biotin may interfere with this assay. ?If interference is suspected, patients shoud be retested after refraining from biotin supplements for 72 hours. HEPATITIS B CORE ANTIBODY NEGATIVE NEGATIVE Exam Date: 03/17/2021 ?9:07 AM Ordering Diagnosis: Pain of left hand ? Left hand, 3 views. History pain. Comparison with previous study from 07/08/2020. There is no evidence of fractures or dislocations. ?Again noted are mild degenerative changes in the DIP joints of the 2nd and 3rd fingers. ?There is no abnormal soft tissue calcifications. ??There is interval development of minimal erosion at the base of the proximal phalanx of the 3rd finger. ? CONCLUSIONS: Degenerative and erosive changes as detailed. Final X-RAY EXAM OF THORACIC SPINE ? Exam Date: 03/17/2021 ?9:07 AM Ordering Diagnosis: Thoracic back pain, unspecified back pain laterality, unspecified chronicity ? Dorsal spine, 2 views. History upper back pain. There is exaggerated thoracic kyphosis. ?Vertebral bodies are maintained in height. ?There are arm anterior lateral discogenic spurs in the mid and lower thoracic segment more prominent in the arm T8-9 and T9-10 levels on the right. ?No fractures, dislocations or destructive lesions. ??Pedicles are maintained. ? CONCLUSIONS: Degenerative changes as detailed. ?Exaggerated thoracic kyphosis. X-RAY EXAM OF FOOT, COMPLETE (3 VIEWS) ? Exam Date: 07/08/2020 11:43 AM Ordering Diagnosis: Chronic foot pain, unspecified laterality ? ? ? Bilateral feet, 3 views of each. History pain. There are mild degenerative changes in the 1st metatarsophalangeal joint on the right. ?There are small bilateral calcaneal spurs. ? CONCLUSIONS: Mild degenerative changes in the 1st metatarsophalangeal joint on the right. ? Bilateral calcaneal spurs. Final RADEX HIPS BILATERAL WITH PELVIS 3-4 VIEWS ? Exam Date: 07/08/2020 11:43 AM Ordering Diagnosis: Sclerosis of sacroiliac jointChronic SI joint pain ? ? ? AP view of the pelvis. ?Bilateral hips, 2 views of each. History bilateral hip pain. ? There are mild degenerative changes in the hip joints bilaterally with small marginal osteophytes arising from the acetabuli. ?Incidental findings of 2.2 cm sclerotic endosteal lesion in the proximal femoral diaphysis on the left. ?The nature is unclear. ?Additional evaluation with MRI is recommended. ?No fractures, dislocations or destructive lesions. ? CONCLUSIONS: Mild degenerative changes. ?Incidental findings in the left proximal femoral diaphysis. ?Additional evaluation is recommended. X-RAY EXAM OF HAND, 3+ VIEWS ? Exam Date: 07/08/2020 11:43 AM Ordering Diagnosis: Chronic hand pain, unspecified laterality ? ? ? Bilateral hands, 3 views of each. ? History pain. ?Swelling. ?Comparison with prior study from 04/24/2015. ? There are mild degenerative changes in the DIP joints of multiple fingers bilaterally. ?There is no evidence of fractures, dislocations or bony erosions. ? CONCLUSIONS: Mild degenerative changes in the DIP joints bilaterally. ? ? Final X-RAY EXAM OF LOWER SPINE WITH OBLIQUES ? Exam Date: 09/28/2018 ?4:21 PM Ordering Diagnosis: Acute left-sided low back pain without sciatica ? ? ? History: Low back pain with sciatica. ? Lumbosacral spine, 5 views: Compared to 09/03/2013. There is very mild diffuse disc degeneration. ?There has been slight progression at L3-L5 compared to previous. There is some minimal facet hypertrophy inferiorly. Alignment remains normal. There are no compression deformities. Bilateral SI joint degeneration is again noted as well as mild degenerative changes in the hips.MRI PELVIS; NO CONTRAST MAT Exam Date: 09/22/2020 8:23 AM Ordering Diagnosis: Sclerosis of sacroiliac joint ? MRI of the pelvis/sacroiliac joints. History sclerotic changes in the SI joints on plain films. ? Examination was performed on 1.5 Fernanda magnet without administration of intravenous contrast. No previous MRI examinations are available for comparison. ? There are mild sclerotic changes in the anterior superior right SI joint. There is mild subchondral edema on the sacral side of the joint. Left SI joint appears to be unremarkable. There is no evidence of fusion or effusion Uterus and ovaries are surgically absent. There is no free fluid in the cul-de-sac. There are degenerative changes at L3-4 and L5-S1 levels with narrowing of the disc spaces, decreased T2 signal within the discs and diffuse bulging of the discs. ? CONCLUSIONS: Mild sclerotic changes in the right SI joint with mild subchondral, probably reactive edema on the sacral side of the joint. Degenerative changes at L3-4 and L5-S1 levels. ? IMPRESSION: Mild degenerative changes with slight interval progression compared to 09/03/2013. MR/MR sacroiliac joint AMIRA wo con 06/2022 IMPRESSION: 1.? Mild abnormality of the right sacroiliac joint with an appearance most compatible with mild osteoarthritis. Possible concomitant stress reaction in the sacrum. No discrete fracture line. 2.? Mild spondylosis in the partially visualized lumbosacral spine with degenerative changes present at L5-S1. ORDER #: 05/2022 XR/XR shoulder RT min 2V IMPRESSION: Bilateral calcaneal heel enthesophytes. No visible acute fracture or dislocation seen. There is bilateral dorsal distal foot soft tissue swelling. ? Bilateral dorsal hand soft tissue swelling. No visible acute fracture, dislocation or subluxation seen. There is no visible fracture or dislocation involving the wrist or the hand. No bony abnormality is seen either. ? Unremarkable bilateral shoulders. MR/MR hand RT wo con IMPRESSION: 1.? 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 ? 2.? Small foci of subcortical edema and cystic change at the index and long finger metacarpal heads are favored to be degenerative in nature. Primary erosions are felt to be unlikely. ? 3.? Small 6 mm ganglion cyst at the medial margin of the thumb MCP joint. ? 4.? Focal thickening and increased signal in the median nerve just proximal to the carpal tunnel. Recommend correlation for symptoms of carpal tunnel syndrome. Assessment & Plan Assessment & Plan (1) Polyarthralgia: Code(s): M25.50 - Pain in unspecified joint Plan: This is a 47-year-old female with a past medical history of anxiety, asthma, erythrocytosis, fibromyalgia, inflammatory arthritis who presents for evaluation diffuse joint pain.? Patient was labeled as having ankylosing spondylitis in the past.? I repeated her SI joint MRI which shows no signs of sacroiliitis.? SI joint MRI shows findings compatible with sclerosis and mild osteoarthritis.? Patient took Humira for 3 months without relief in her peripheral and spinal pain. Humira was discontinued and right hand MRI was done which did not show any signs of inflammatory arthritis. At this point I do not see any evidence of inflammatory arthritis. Clinical picture is rather consistent with degenerative arthritis and fibromyalgia. Follow-up as needed (2) terminal carman systemic steroid user: Code(s): Z79.52 - prison (current) use 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 Plan: Per patient she has received numerous courses of prednisone for her inflammatory arthritis and asthma with resultant 30 lb weight gain. On exam she has garza facies. DEXA scan shows osteopenia at the femoral neck. FRAX score Major osteoporotic fracture (clinical spine, forearm, hip or shoulder) 2.2%. Hip fracture 0.1% (3) De Quervain's disease (radial styloid tenosynovitis): Code(s): M65.4 - Radial styloid tenosynovitis [de Quervain] Plan: s/p steroid injection without improvement. Patient has a follow-up visit with hand surgeon soon. Advised patient to discuss potential surgical options (4) Carpal tunnel syndrome: Code(s): G56.00 - Carpal tunnel syndrome, unspecified upper limb Qualifiers: Laterality: bilateral Qualified Code(s): G56.03 - Carpal tunnel syndrome, bilateral upper limbs Plan: S/p right hand carpal tunnel release with improvement, she is planned to get carpal tunnel release for left hand soon (5) Lumbar back pain with radiculopathy affecting left lower extremity: Code(s): M54.16 - Radiculopathy, lumbar region Plan: Will order L-spine MRI and referred patient to pain management Plan * I spent 42 minutes reviewing patient's chart, evaluating patient, placing orders, counseling patient and documenting in the chart Orders: Orders MR lumbar spine wo con Today M54.16 - Radiculopathy, lumbar region Referrals Pain Management Referral M54.16 - Radiculopathy, lumbar region Coding Level of Care Code Est Pt Level 5 (70425) Diagnoses Polyarthralgia M25.50 terminal carman systemic steroid user Z79.52 De Quervain's disease (radial styloid tenosynovitis) M65.4 Carpal tunnel syndrome G56.03 Laterality: bilateral Lumbar back pain with radiculopathy affecting left lower extremity M54.16
[2023-01-28 09:44] VITALS: BP 118/78; PULSE 73; TEMP 36.2; O2SAT 98; BMI 44.5
== END 2023-01-28 10:11 | disposition home or self-care (01) ==
PROVIDERS: PCP Internal Medicine; Visit Provider Student in an Organized Health Care Education/Training Program
DX: M25.50 Pain in unspecified joint (principal); Z79.52 Long term (current) use 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; M65.4 Radial styloid tenosynovitis [de Quervain]; G56.03 Carpal tunnel syndrome, bilateral upper limbs; M54.16 Radiculopathy, lumbar region
CPT/HCPCS: 99215

== ENCOUNTER → 2023-01-28 09:38 | Outpatient (BNVA) | payer OTHER, SELFPAY | PROVIDERS: PCP Internal Medicine; Visit Provider Student in an Organized Health Care Education/Training Program | DX: M06.00 Rheumatoid arthritis without rheumatoid factor, unspecified site (principal); G56.03 Carpal tunnel syndrome, bilateral upper limbs; M65.4 Radial styloid tenosynovitis [de Quervain]; M25.50 Pain in unspecified joint; Z79.52 Long term (current) use 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 | CPT/HCPCS: 99212 ==

== ENCOUNTER 2023-02-02 08:28 | Outpatient (AMB) | payer OTHER, SELFPAY ==
[2023-02-02 08:38] VITALS: BP 140/84; PULSE 60; RESP 14; O2SAT 96; BMI 44.1
--- NOTE | 2023-02-02 08:38 | MHC.OFFVIS ---
Intake Vital Signs 02/02/23 08:38 Height 4 ft 11 in Weight 218 lb 4 oz BMI 44.1 BP 140/84 H Blood Pressure Location Lt brachial Position Sitting Respiration 14 Pulse 60 Pulse Source Pulse Oximeter Pulse Oximetry (%) 96 Oxygen Delivery Method Room Air Intake Visit Reasons: lumbar radiculopathy Allergies No Known Allergies Allergy (Verified 02/02/23 08:38) HPI HPI Comments History of Present Illness Details Luz is a very pleasant 48-year-old female who presents to the office today for evaluation and management of her chronic lower back pain. Patient reports that she has suffered with this pain for many years and does not recall an inciting injury. Patient reports today pain of 8/10 in her lower back bilaterally with radiation into the thighs stopping above the level of the knee. She reports the pain is constant at all times of the day and night. The pain is worst was movement and walking. She attempted physical therapy months ago but states that they declined to treat her after initial evaluation because she was significantly tender to touch across her lower back. She has home exercise program that she tries to do but states her back pain makes it difficult. She received cortisone injections years ago to her lower back which she states did not provide much relief. She has not tried muscle relaxers, chiropractor, acupuncture or massage. She has tried nonsteroidal anti-inflammatory medication in the past but states she was overusing and was told not to take them anymore after lengthy hospitalization where she states her kidney function was elevated. Patient denies red flag symptoms including loss of bowel, bladder or saddle anesthesia. Patient has a history of fibromyalgia and currently takes oxycodone 5 mg 4 times daily as needed for pain. The pain is negatively impacting her sleep, mobility, enjoyment of life, recreational activities, general activity and overall mood. In terms of muscle damage condition is described as aching, shooting, cramping, spasming, squeezing, numb, throbbing, tiring, stabbing, sharp, hot, tingling. Patient denies implantable devices, pacemaker or defibrillator. Patient denies current use of tobacco, alcohol or illicit substances. 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 Erythrocytosis Gastroparesis HTN (hypertension) Ovarian cancer Polyarthropathy, inflammatory Screening for viral disease Shoulder tendonitis Surgical History (Updated 02/02/23 @ 10:06 by Shruti Starkey APRN, NOAH) History of carpal tunnel release History of total hysterectomy with bilateral salpingo-oophorectomy (BSO) Hx of cholecystectomy S/P breast implant, saline Family History Mother Glaucoma Rheumatoid arthritis Hypertension Sarcoidosis Father History of thyroid disorder Hypertension Diabetes Rheumatoid arthritis Psoriasis Heart disease Paternal Grandmother Diabetes Heart disease Social History Household Members: None Alcohol intake: never Patient Tobacco Use Status: Never used Tobacco Current occupational status: unemployed Current occupation: right hand Review of Systems Const All systems reviewed & are unremarkable except as noted in HPI and below Physical Exam Vital Signs: Last Vital Signs Pulse 60 02/02/23 08:38 Resp 14 02/02/23 08:38 BP 140/84 H 02/02/23 08:38 Pulse Ox 96 02/02/23 08:38 Oxygen Delivery Method Room Air 02/02/23 08:38 BMI result Body Mass Index 44.1 General: awake, alert, oriented. Answers questions appropriately. Fully engaged in examination. Skin: warm, dry, intact without visible rashes or lesions. HEENT: Normocephalic. Conjuntivae clear without exudate. Sclera non-icteric. Hearing intact. Cardiac: External chest normal in appearance. Respiratory: No signs of trauma. No signs of respiratory distress. No cough, audible wheezing or stridor. Abdomen: without gross distension. Neurological: Oriented to person, place, time and situation. Thought process intact. No gait abnormalities appreciated. Psychiatric: Appropriate mood and affect. Good judgment and insight. Back/Spine/Pelvis Other: Lumbar exam: Able to stand on bilateral tiptoes and bilateral heels. Able to transition from sit to stand unassisted. Ambulates with bilaterally normal heel strike and toe off Visual inspection without gross abnormality Moderately tender to palpation over midline lumbar vertebrae and paraspinal muscles in region of L2-3 to L4-5 Nontender to palpation over SI joints ROM: limited secondary to pain with extension to 10 degrees. flexion to 45 degrees. pain with flexion and extension. Strength: 5/5 BLE Sensation: intact and symmetric BLE DTR: intact and symmetric Straight leg raises with and without dorsiflexion elicit increased pain in lower back with radiation into groin and thighs above the level of the knees bilaterally Facet loading positive bilaterally ERNESTINE positive bilaterally Results Reviewed Results Reviewed: 06/02/2022 EXAMINATION: MR SACROILIAC JOINTS/PELVIS WITHOUT CONTRAST, BILATERAL BONES/JOINTS: Right Sacroiliac Joint: There is subtle decreased T1 and T2 signal surrounding the anterior superior portion of the sacroiliac joint. There is mild marrow edema on the sacral side of the joint. No discrete fracture line. Minimal, if any, marginal osteophytes. No joint effusion. No marginal erosions. No surrounding soft tissue edema. Left Sacroiliac Joint: Normal. Remaining visualized bones are normal. Partially visualized hip joints and symphysis pubis are unremarkable. In the partially visualized lumbosacral spine, there are degenerative disc changes present at L5-S1 with mild bulging of the disc. There is also at least mild bilateral facet arthrosis at L5-S1. MUSCLES/TENDONS: Unremarkable. NEUROVASCULAR STRUCTURES: Unremarkable. SUBCUTANEOUS SOFT TISSUES: Normal. INTRAPELVIC SOFT TISSUES: Unremarkable. IMPRESSION: 1.? Mild abnormality of the right sacroiliac joint with an appearance most compatible with mild osteoarthritis. Possible concomitant stress reaction in the sacrum. No discrete fracture line. 2.? Mild spondylosis in the partially visualized lumbosacral spine with degenerative changes present at L5-S1. Assessment & Plan Assessment & Plan (1) Facet arthritis of lumbar region: Code(s): M47.816 - Spondylosis without myelopathy or radiculopathy, lumbar region (2) Radiculopathy: Code(s): M54.10 - Radiculopathy, site unspecified (3) Lumbar spondylosis: Code(s): M47.816 - Spondylosis without myelopathy or radiculopathy, lumbar region (4) Degenerative disc disease, lumbar: Code(s): M51.36 - Other intervertebral disc degeneration, lumbar region (5) Left shoulder pain: Code(s): M25.512 - Pain in left shoulder (6) Myofascial low back pain: Code(s): M54.50 - Low back pain, unspecified Kennedi Escobar is a very pleasant 48-year-old female who presented to the office today for evaluation and management of her chronic lower back pain. History physical exam and provocative testing most consistent with lumbar facet arthropathy with myofascial low back pain. Patient has MRI lumbar spine ordered, to complete as planned. Physical therapy eval and treat order placed. Patient is willing to try again, she states that has been helpful to some degree in the past. C/W home tens unit. Baclofen 10 mg p.o. b.i.d. p.r.n. muscle spasms. Patient advised on cautions including driving restrictions and not to take with other AUTO HAULER depressants including her prescribed opioids and benzodiazepines. Discussed options for treatment including diagnostic interventional testing, epidural steroid injections, peripheral nerve stimulation with Sprint, RFA and more permanent neuromodulation. Patient will follow up here after MRI and PT. If no improvement in her symptoms will plan for fluoroscopy guided diagnostic bilateral L3-L4 DR L5 medial branch blocks with local anesthetic with plan for bilateral L3 and the Sprint if patient receives appropriate pain relief with diagnostic MBBs. For her chronic left shoulder pain patient will follow up with Rheumatology to discuss plan at previous visit for MRI left shoulder. Physical therapy for her shoulder was ordered today and we discussed options for treatment if she is non-surgical and referred here for us to manage. All questions and concerns have been answered and patient agrees with the plan. Follow up after MRI, sooner if needed. Orders: Orders PT Evaluation and Treatment Today M25.512 - Pain in left shoulder, M47.816 - Spondylosis without myelopathy or radiculopathy, lumbar region, M51.36 - Other intervertebral disc degeneration, lumbar region Medications: New baclofen do not combine with alcohol, benzodiazepines, opioids or other AUTO HAULER depressants. No driving while taking this medication 10 mg PO BID PRN 30 tabs 0RF muscle spasm M47.816 - Spondylosis without myelopathy or radiculopathy, lumbar region, M54.10 - Radiculopathy, site unspecified Coding Level of Care Code New Pt Level 4 (53156) Diagnoses Facet arthritis of lumbar region M47.816 Radiculopathy M54.10 Lumbar spondylosis M47.816 Degenerative disc disease, lumbar M51.36 Left shoulder pain M25.512 Myofascial low back pain M54.50
== END 2023-02-02 09:18 | disposition home or self-care (01) ==
PROVIDERS: PCP Internal Medicine; Visit Provider Registered Nurse Emergency
DX: M47.26 Other spondylosis with radiculopathy, lumbar region (principal); M51.36 Other intervertebral disc degeneration, lumbar region; M25.512 Pain in left shoulder
CPT/HCPCS: 99204

== ENCOUNTER → 2023-02-02 08:28 | Outpatient (BNVA) | payer OTHER, SELFPAY | PROVIDERS: PCP Internal Medicine; Visit Provider Registered Nurse Emergency | DX: M47.26 Other spondylosis with radiculopathy, lumbar region (principal); M51.36 Other intervertebral disc degeneration, lumbar region; M79.7 Fibromyalgia; M25.512 Pain in left shoulder; M54.50 Low back pain, unspecified; Z79.891 Long term (current) use of opiate analgesic | CPT/HCPCS: 99202 ==

== ENCOUNTER 2023-02-22 10:43 | Outpatient (AMB) | payer OTHER, SELFPAY ==
[2023-02-22 10:57] VITALS: BMI 44.0
--- NOTE | 2023-02-22 10:57 | MHC.OFFVIS ---
Intake Vital Signs 02/22/23 10:57 Height 4 ft 11 in Weight 218 lb BMI 44.0 Intake Visit Reasons: ov- discuss Left CTR Intake Note: Luz 48 yr old female presents today for her left hand numbness and tingling. Hx of right hand CTR from 11/11/22. States her right hand numbness has resolved but still has sensitivity by incision area. She would also like to discuss surgery for her left hand. Allergies No Known Allergies Allergy (Verified 02/22/23 11:02) HPI ov- discuss Left CTR HPI Details Luz is a 48 year old right hand dominant woman who presents to discuss her left carpal tunnel syndrome. She complains of numbness in the median nerve distribution of her left hand. With dense numbness today. She would like to discuss surgery She is S/P right carpal tunnel release, DOS: 11/11/22, with normal sensation. She is happy with the results of her surgery, but says she still has some sensitivity about her incision site. She was told by Rheumatology to ask about De Quervains tenosynovitis. Reviewing her Rheumatology note by Dr. Bateman on 01/28/23, she has a hx of left De Quervains with a positive Marija test. Patient reports a Hx of a right wrist injection at an outside clinic. She denies any radial sided wrist pain today. 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 Erythrocytosis Gastroparesis HTN (hypertension) Ovarian cancer Polyarthropathy, inflammatory Screening for viral disease Shoulder tendonitis Surgical History (Updated 02/02/23 @ 10:06 by Shruti Starkey APRN, NOAH) History of carpal tunnel release History of total hysterectomy with bilateral salpingo-oophorectomy (BSO) Hx of cholecystectomy S/P breast implant, saline Family History Mother Glaucoma Rheumatoid arthritis Hypertension Sarcoidosis Father History of thyroid disorder Hypertension Diabetes Rheumatoid arthritis Psoriasis Heart disease Paternal Grandmother Diabetes Heart disease Social History Household Members: None Alcohol intake: never Patient Tobacco Use Status: Never used Tobacco Current occupational status: unemployed Current occupation: right hand Review of Systems Const All systems reviewed & are unremarkable except as noted in HPI and below Physical Exam Vital Signs: BMI result Body Mass Index 44.0 Const General: cooperative, healthy appearing and no acute distress Orientation/consciousness: patient oriented x3 HEENT Head: Yes normocephalic and Yes atraumatic Eyes EOM: EOMs intact bilaterally Resp Effort & Inspection: normal respiratory effort and able to speak in complete sentences Cardio Jugular venous distension: no JVD Skin General skin exam: turgor normal Rashes: no rashes Neuro General: patient oriented x3 Extrem Other: Evaluation of Left Upper Extremity: The patient is alert, oriented, and in no acute distress She is currently 4'11 & 225lbs, current BMI is 45.0 Neuro: With dense numbness in the median nerve distribution. Normal sensation to the ulnar nerve distribution No thenar or intrinsic wasting Good APB muscle belly firing and good finger cross Vascular: Cap refill brisk ROM: She can make a fist and extend all her digits No visible or palpable locking or catching No tenderness over the A1 roderick No 1st dorsal compartment tenderness Negative Marija test bilaterally Nerve Conduction Study: IMPRESSION: Mild-moderate carpal tunnel syndrome bilaterally Dr. Conrad 10/27/22 Psych Appearance: grossly normal Affect: normal affect Attitude: cooperative Assessment & Plan Assessment & Plan (1) Carpal tunnel syndrome of right wrist: Code(s): G56.01 - Carpal tunnel syndrome, right upper limb (2) Carpal tunnel syndrome of left wrist: Code(s): G56.02 - Carpal tunnel syndrome, left upper limb (3) Seronegative rheumatoid arthritis: Code(s): M06.00 - Rheumatoid arthritis without rheumatoid factor, unspecified site (4) Fibromyalgia: Code(s): M79.7 - Fibromyalgia Plan Assessment & Plan: 1. Left Carpal tunnel syndrome, mild-moderate With dense numbness I educated her about this condition I discussed operative and non-operative treatment options The patient would like to proceed with surgery I explained that surgery is not likely to improve her generalized hand pain, but is likely to improve her symptoms of numbness. The risks and benefits of operative treatment were discussed with the patient and the patient wishes to proceed with surgery. These risks include, but are not limited to risk of damage to blood vessels, nerves, tendons, infection, recurrence, incomplete relief of preoperative symptoms, persistent pain, possible need for further surgery and the risks associated with regional blocks and anesthesia. The plan is to take the patient to the operating room sometime in the next few weeks for the following procedures: 1. Left carpal tunnel release, under local All of the preoperative paperwork including the consent was filled out today. All the patient's questions were answered. The patient understands that they will be contacted by our neurosurgery spine physician soon to schedule this procedure She denies Diabetes, blood thinners, asthma, heart, lung, kidney issues She has RA & Fibromyalgia, and currently takes Methotrexate. She denies any other rheumatologic medications at this time. 2. Right Carpal tunnel syndrome, S/P release Pre-operative symptoms intermittent, but daily, worse at night Now with normal sensation She does have some hypersensitivity about her incision site I ordered OT hand therapy to work on desensitization 3. Bilateral generalized hand pain Negative Marija tests bilaterally today. She has a Hx of steroid injections in the past, along with Prednisone, methotrexate, and Humira use She denies being on any Rheumatologic medication at this time. 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 Orders: Orders OT Evaluation and Treatment Today G56.01 - Carpal tunnel syndrome, right upper limb Coding Level of Care Code Est Pt Level 4 (68484) Diagnoses Carpal tunnel syndrome of right wrist G56.01 Carpal tunnel syndrome of left wrist G56.02 Seronegative rheumatoid arthritis M06.00 Fibromyalgia M79.7
== END 2023-02-22 11:43 | disposition home or self-care (01) ==
PROVIDERS: PCP Internal Medicine; Visit Provider Orthopaedic Surgery
DX: G56.02 Carpal tunnel syndrome, left upper limb (principal); G56.01 Carpal tunnel syndrome, right upper limb
CPT/HCPCS: 99214

== ENCOUNTER → 2023-02-22 10:43 | Outpatient (BNVA) | payer OTHER, SELFPAY | PROVIDERS: PCP Internal Medicine; Visit Provider Orthopaedic Surgery | DX: G56.02 Carpal tunnel syndrome, left upper limb (principal); M06.00 Rheumatoid arthritis without rheumatoid factor, unspecified site; M79.7 Fibromyalgia; Z86.69 Personal history of other diseases of the nervous system and sense organs | CPT/HCPCS: 99212 ==

== ENCOUNTER 2023-02-23 09:34 | Outpatient (AMB) | payer OTHER, SELFPAY ==
--- NOTE | 2023-02-23 09:43 | MHC.OFFVIS ---
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 Accompanied by: Self / Same As Patient Allergies No Known Allergies Allergy (Verified 02/23/23 09:46) Medication List - Last Reconciled 02/23/23 by Kushal Bateman MD albuterol sulfate 90 mcg/actuation 2 puffs inhalation QID PRN amitriptyline 75 mg (3 x 25 mg) PO BEDTIME 30 days aspirin 81 mg PO DAILY baclofen 10 mg PO BID PRN ergocalciferol (vitamin D2) (Vitamin D2) 1,250 mcg PO QWEEK fluticasone propion-salmeterol 230-21 mcg/actuation (Advair HFA) 2 puffs inhalation BID furosemide 40 mg PO DAILY isosorbide mononitrate ER 30 mg PO DAILY loratadine 10 mg PO DAILY lorazepam 0.5 mg PO QPM magnesium oxide 400 mg PO BEDTIME 30 days meclizine 25 mg PO TID PRN metoclopramide HCl 5 mg PO TID montelukast 10 mg PO DAILY omeprazole 20 mg PO DAILY ondansetron HCl mg PO riboflavin (vitamin B2) 400 mg PO DAILY 30 days rosuvastatin 5 mg PO DAILY valacyclovir 500 mg PO DAILY HPI HPI Comments History of Present Illness Details 48-year-old female previously diagnosed with seronegative RA returns for follow-up. She was recently evaluated by Hand surgery and is planned for left carpal tunnel release surgery sometime soon. She was also evaluated by Pain Management. For her chronic left shoulder pain she was evaluated by Orthopedics and an MRI showed biceps tendinopathy and surgery is suggested. Patient is quite upset she states that I did not refer her to Orthopedics for her chronic shoulder pain. Initial history: This is a 47-year-old female with a past medical history of anxiety, asthma, erythrocytosis, fibromyalgia, inflammatory arthritis who presents for evaluation diffuse joint pain. Patient has been having low back pain for many years. She has had numerous imaging studies. She has been on various treatment methods including steroids, gabapentin physical therapy, steroid injections without any significant relief. Few years ago patient has been having pain swelling and stiffness of her hand. The swelling and stiffness are generally worse in the morning lasting hours. Prednisone tapers would help the pain in her hand but not her back. She gained 30 lb that she attributes to steroid exposure. Patient could not get methotrexate as she had transaminitis. She has biopsy proven HEATH. He states that in August of this year she was admitted with abdominal bloating and fevers. At that time her liver enzymes were significantly elevated. She stated that she had a liver biopsy at that time, but she is not sure of the results. Humira was approved for the patient to treat her inflammatory arthritis however since patient was not Humira was not started. She states that mother has sarcoidosis and rheumatoid arthritis and her father has rheumatoid arthritis. 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 Erythrocytosis Gastroparesis HTN (hypertension) Ovarian cancer Polyarthropathy, inflammatory Screening for viral disease Shoulder tendonitis Surgical History History of carpal tunnel release History of total hysterectomy with bilateral salpingo-oophorectomy (BSO) Hx of cholecystectomy S/P breast implant, saline Family History Mother Glaucoma Rheumatoid arthritis Hypertension Sarcoidosis Father History of thyroid disorder Hypertension Diabetes Rheumatoid arthritis Psoriasis Heart disease Paternal Grandmother Diabetes Heart disease Social History Household Members: None Alcohol intake: never Patient Tobacco Use Status: Never used Tobacco Current occupational status: unemployed Current occupation: right hand Review of Systems [facility] [place] [facility] [place] arthralgias Physical Exam Vital Signs: Last Vital Signs Temp 97.6 F 02/23/23 09:44 Pulse 66 02/23/23 09:44 BP 122/74 02/23/23 09:44 Pulse Ox 99 02/23/23 09:44 BMI result Body Mass Index 44.1 Const Other: Cushingoid General: cooperative, healthy appearing, comfortable and no acute distress Nutritional Appearance: obese morbidly obese Limitations: no limitations HEENT Other: Ivy facies Head: Yes normocephalic and Yes atraumatic Resp Effort & Inspection: normal respiratory effort and able to speak in complete sentences Results Reviewed Results Reviewed: quantiferon FT PLUS INTERPRETATION 2020 NEGATIVE NEGATIVE Hepatitis B surface antibody NEGATIVE POSITIVE?Abnormal? POSITIVE?Abnormal?[email or web address] POSITIVE?Abnormal?[email or web address] Hepatitis B surface antigen NEGATIVE NEGATIVE [email or web address] Comment:?Over the counter supplements containing high doses of biotin may interfere with this assay. ?If interference is suspected, patients shoud be retested after refraining from biotin supplements for 72 hours. Hepatitis C Virus Diagnostic NEGATIVE NEGATIVE HEPATITIS A ANTIBODY TOTAL NEGATIVE NEGATIVE [email or web address] Comment:?Over the counter supplements containing high doses of biotin may interfere with this assay. ?If interference is suspected, patients shoud be retested after refraining from biotin supplements for 72 hours. HEPATITIS B CORE ANTIBODY NEGATIVE NEGATIVE Exam Date: 03/17/2021 ?9:07 AM Ordering Diagnosis: Pain of left hand ? Left hand, 3 views. History pain. Comparison with previous study from 07/08/2020. There is no evidence of fractures or dislocations. ?Again noted are mild degenerative changes in the DIP joints of the 2nd and 3rd fingers. ?There is no abnormal soft tissue calcifications. ??There is interval development of minimal erosion at the base of the proximal phalanx of the 3rd finger. ? CONCLUSIONS: Degenerative and erosive changes as detailed. Final X-RAY EXAM OF THORACIC SPINE ? Exam Date: 03/17/2021 ?9:07 AM Ordering Diagnosis: Thoracic back pain, unspecified back pain laterality, unspecified chronicity ? Dorsal spine, 2 views. History upper back pain. There is exaggerated thoracic kyphosis. ?Vertebral bodies are maintained in height. ?There are arm anterior lateral discogenic spurs in the mid and lower thoracic segment more prominent in the arm T8-9 and T9-10 levels on the right. ?No fractures, dislocations or destructive lesions. ??Pedicles are maintained. ? CONCLUSIONS: Degenerative changes as detailed. ?Exaggerated thoracic kyphosis. X-RAY EXAM OF FOOT, COMPLETE (3 VIEWS) ? Exam Date: 07/08/2020 11:43 AM Ordering Diagnosis: Chronic foot pain, unspecified laterality ? ? ? Bilateral feet, 3 views of each. History pain. There are mild degenerative changes in the 1st metatarsophalangeal joint on the right. ?There are small bilateral calcaneal spurs. ? CONCLUSIONS: Mild degenerative changes in the 1st metatarsophalangeal joint on the right. ? Bilateral calcaneal spurs. Final RADEX HIPS BILATERAL WITH PELVIS 3-4 VIEWS ? Exam Date: 07/08/2020 11:43 AM Ordering Diagnosis: Sclerosis of sacroiliac jointChronic SI joint pain ? ? ? AP view of the pelvis. ?Bilateral hips, 2 views of each. History bilateral hip pain. ? There are mild degenerative changes in the hip joints bilaterally with small marginal osteophytes arising from the acetabuli. ?Incidental findings of 2.2 cm sclerotic endosteal lesion in the proximal femoral diaphysis on the left. ?The nature is unclear. ?Additional evaluation with MRI is recommended. ?No fractures, dislocations or destructive lesions. ? CONCLUSIONS: Mild degenerative changes. ?Incidental findings in the left proximal femoral diaphysis. ?Additional evaluation is recommended. X-RAY EXAM OF HAND, 3+ VIEWS ? Exam Date: 07/08/2020 11:43 AM Ordering Diagnosis: Chronic hand pain, unspecified laterality ? ? ? Bilateral hands, 3 views of each. ? History pain. ?Swelling. ?Comparison with prior study from 04/24/2015. ? There are mild degenerative changes in the DIP joints of multiple fingers bilaterally. ?There is no evidence of fractures, dislocations or bony erosions. ? CONCLUSIONS: Mild degenerative changes in the DIP joints bilaterally. ? ? Final X-RAY EXAM OF LOWER SPINE WITH OBLIQUES ? Exam Date: 09/28/2018 ?4:21 PM Ordering Diagnosis: Acute left-sided low back pain without sciatica ? ? ? History: Low back pain with sciatica. ? Lumbosacral spine, 5 views: Compared to 09/03/2013. There is very mild diffuse disc degeneration. ?There has been slight progression at L3-L5 compared to previous. There is some minimal facet hypertrophy inferiorly. Alignment remains normal. There are no compression deformities. Bilateral SI joint degeneration is again noted as well as mild degenerative changes in the hips.MRI PELVIS; NO CONTRAST MAT Exam Date: 09/22/2020 8:23 AM Ordering Diagnosis: Sclerosis of sacroiliac joint ? MRI of the pelvis/sacroiliac joints. History sclerotic changes in the SI joints on plain films. ? Examination was performed on 1.5 Fernanda magnet without administration of intravenous contrast. No previous MRI examinations are available for comparison. ? There are mild sclerotic changes in the anterior superior right SI joint. There is mild subchondral edema on the sacral side of the joint. Left SI joint appears to be unremarkable. There is no evidence of fusion or effusion Uterus and ovaries are surgically absent. There is no free fluid in the cul-de-sac. There are degenerative changes at L3-4 and L5-S1 levels with narrowing of the disc spaces, decreased T2 signal within the discs and diffuse bulging of the discs. ? CONCLUSIONS: Mild sclerotic changes in the right SI joint with mild subchondral, probably reactive edema on the sacral side of the joint. Degenerative changes at L3-4 and L5-S1 levels. ? IMPRESSION: Mild degenerative changes with slight interval progression compared to 09/03/2013. MR/MR sacroiliac joint AMIRA wo con 06/2022 IMPRESSION: 1.? Mild abnormality of the right sacroiliac joint with an appearance most compatible with mild osteoarthritis. Possible concomitant stress reaction in the sacrum. No discrete fracture line. 2.? Mild spondylosis in the partially visualized lumbosacral spine with degenerative changes present at L5-S1. ORDER #: 05/2022 XR/XR shoulder RT min 2V IMPRESSION: Bilateral calcaneal heel enthesophytes. No visible acute fracture or dislocation seen. There is bilateral dorsal distal foot soft tissue swelling. ? Bilateral dorsal hand soft tissue swelling. No visible acute fracture, dislocation or subluxation seen. There is no visible fracture or dislocation involving the wrist or the hand. No bony abnormality is seen either. ? Unremarkable bilateral shoulders. MR/MR hand RT wo con IMPRESSION: 1.? 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 ? 2.? Small foci of subcortical edema and cystic change at the index and long finger metacarpal heads are favored to be degenerative in nature. Primary erosions are felt to be unlikely. ? 3.? Small 6 mm ganglion cyst at the medial margin of the thumb MCP joint. ? 4.? Focal thickening and increased signal in the median nerve just proximal to the carpal tunnel. Recommend correlation for symptoms of carpal tunnel syndrome. Assessment & Plan Assessment & Plan (1) Polyarthralgia: Code(s): M25.50 - Pain in unspecified joint Plan: This is a 48-year-old female with a past medical history of anxiety, asthma, erythrocytosis, fibromyalgia, inflammatory arthritis who initially presented for evaluation of diffuse pain.? Patient was labeled as having ankylosing spondylitis in the past.? I repeated her SI joint MRI which shows no signs of sacroiliitis.? SI joint MRI shows findings compatible with sclerosis and mild osteoarthritis.? Patient took Humira for 3 months without relief in her peripheral and spinal pain. Humira was discontinued and right hand MRI was done which did not show any signs of inflammatory arthritis. At this point I do not see any evidence of inflammatory arthritis. Clinical picture is rather consistent with degenerative arthritis and fibromyalgia. Prednisone was discontinued Today patient was upset that I did not refer her to Orthopedics. She claims that I told her that I will refer her to Orthopedics for evaluation of her left shoulder pain. I do not recall doing that. She was recently evaluated by Orthopedics and had a left shoulder MRI which showed biceps tendinopathy and surgery is suggested. 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 On exam she has ivy facies. DEXA scan shows osteopenia at the femoral neck. FRAX score Major osteoporotic fracture (clinical spine, forearm, hip or shoulder) 2.2%. Hip fracture 0.1% I suggest avoiding steroid use as much as possible in the future (3) De Quervain's disease (radial styloid tenosynovitis): Code(s): M65.4 - Radial styloid tenosynovitis [de Quervain] Plan: Follow-up with hand surgery (4) Carpal tunnel syndrome: Code(s): G56.00 - Carpal tunnel syndrome, unspecified upper limb Qualifiers: Laterality: bilateral Qualified Code(s): G56.03 - Carpal tunnel syndrome, bilateral upper limbs Plan: S/p right hand carpal tunnel release with improvement, she is planned to get carpal tunnel release for left hand soon (5) Lumbar back pain with radiculopathy affecting left lower extremity: Code(s): M54.16 - Radiculopathy, lumbar region Plan: L-spine MRI was ordered, not yet scheduled. Patient has established care with pain management Coding Level of Care Code Est Pt Level 3 (50527) Diagnoses Polyarthralgia M25.50 nursing home systemic steroid user Z79.52 De Quervain's disease (radial styloid tenosynovitis) M65.4 Carpal tunnel syndrome G56.03 Laterality: bilateral Lumbar back pain with radiculopathy affecting left lower extremity M54.16
[2023-02-23 09:44] VITALS: BP 122/74; PULSE 66; TEMP 36.4; O2SAT 99; BMI 44.1
== END 2023-02-23 10:26 | disposition home or self-care (01) ==
PROVIDERS: PCP Internal Medicine; Visit Provider Student in an Organized Health Care Education/Training Program
DX: M25.50 Pain in unspecified joint (principal); Z79.52 Long term (current) use 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; M65.4 Radial styloid tenosynovitis [de Quervain]; G56.03 Carpal tunnel syndrome, bilateral upper limbs; M54.16 Radiculopathy, lumbar region
CPT/HCPCS: 99213

== ENCOUNTER → 2023-02-23 09:34 | Outpatient (BNVA) | payer OTHER, SELFPAY | PROVIDERS: PCP Internal Medicine; Visit Provider Student in an Organized Health Care Education/Training Program | DX: M25.512 Pain in left shoulder (principal); M65.4 Radial styloid tenosynovitis [de Quervain]; G56.03 Carpal tunnel syndrome, bilateral upper limbs; M54.16 Radiculopathy, lumbar region; M06.00 Rheumatoid arthritis without rheumatoid factor, unspecified site; Z79.52 Long term (current) use 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 | CPT/HCPCS: 99212 ==

== ENCOUNTER 2023-03-22 08:30 | Outpatient (RCR) | payer OTHER, SELFPAY ==
--- NOTE | 2023-03-09 14:46 | MHC.OT.EP ---
[address] [phone] Occupational Therapy Plan of Care Patient Name: Luz Branch Date of Evaluation: 03/09/23 Diagnosis: s/p right CTR November 2022 Pain Location: Pain right palm/wrist Current: 8/10 Best: 8/10 Pain Score: 8 Pain Scale Used: Numeric (0 - 10) Aggravating Factors: Weightbearing, gripping Alleviating Factors: Compression, rest, massage Assessment: Pt is a 48 y/o female s/p R CTR by Dr. Dimas in November of this year. Pt. reports numbness of digits 1-3 have significantly improved, however pain in volar palm persists. Pt is hypersensitive at scar site with decreased strength and function. Gross grasp is 10# on the R compared to 20# on the L. She is also awaiting CTR of L hand. A 70% limitation is reported per the Quick DASH assessment. Pt would benefit from skilled OT to address barriers and assist in regaining max functional use. Frequency and Duration: The patient will be seen 2x/wk for 4 weeks Short Term Goals: Decrease pain <5/10 IND with scar massage and thermal modalities Improve gross grasp by 5# to inc ease with ADL tasks Mcfp Goals: Pain free with BADL's/IADL's IND with progression of HEP Improve gross grasp >20# Quick DASH <40% Treatment Plan: Therapeutic Exercise Therapeutic Activity Home Exercise Program Patient Education Desensitization/Sensory Re-ed Edema Control Ultrasound Iontophoresis Fluidotherapy MHP Cold Packs Soft Tissue Mobilization Kinesiotaping Electronically Signed By: Ronit Whelan MS OTR/L Please Sign and return to therapist. Thank you once again for your referral.
== END 2023-03-22 10:50 | disposition home or self-care (01) ==
LOC: HO.OT 08:30
PROVIDERS: PCP Internal Medicine; Visit Provider Orthopaedic Surgery
DX: G56.01 Carpal tunnel syndrome, right upper limb (principal)
CPT/HCPCS: 29125; 97035; 97110; 97140; 97165; 97760

== ENCOUNTER 2023-03-24 08:40 | Day surgery (SDC) | payer OTHER, SELFPAY ==
[2023-03-24 08:54] VITALS: BMI 44.4
--- NOTE | 2023-03-24 10:46 | MHC.SHP ---
Pre-Procedural Eval Section A Date of Service: 03/24/23 The patient is an INPATIENT: No Changes since office visit: No Cold of Flu in the past 2 weeks, No New Medical Problems, No Changes in Medication and No Patient answered all questions The History & Physical has been completed within 30 days and I have reviewed it.: Yes Section B Chief Complaint: Carpal tunnel syndrome, left upper limb Allergies: Allergies Allergy/AdvReac Type Severity Reaction Status Date / Time No Known Allergies Allergy Verified 02/23/23 09:46 Plan I have reviewed the history and physical and performed a pertinent physical examination on my patient. No changes have occurred unless specified. Time Spent With Patient Time: Total time managing care of this patient today ____ minutes.
--- NOTE | 2023-03-24 10:46 | W.PM.OPN ---
Operative Note Operative Note Date of Service: 03/24/23 Narrative: Preop diagnosis: 1. Left Carpal tunnel syndrome Postop diagnosis: same Procedure: 1. left Carpal tunnel release Surgeon: Betina Dimas MD Anesthesia: local block using 1% lidocaine with epinephrine Findings: Thickened transverse carpal ligament. EBL: Less than 5 mL Specimens: None Complications: None Disposition: Brought to recovery room in stable condition Plan: Follow-up for 10-14 days for wound check and suture removal Indications: The patient is 48 years old, with left carpal tunnel syndrome that has been unresponsive to nonoperative management. The risks and benefits of operative treatment including but not limited to risk of damage to blood vessels, nerves, tendons, infection, persistent pain, persistent symptoms, or possible need for additional surgery were discussed with the patient and the patient wishes to proceed with surgery. Procedure: Once consent was obtained a local block was performed using a combination of 1% lidocaine with epinephrine. The patient was then brought back to the operating suite and placed on the operative table in supine position. The left upper extremity was prepped and draped in a standard surgical fashion. Once assured that we had a good block, a 2.0 cm longitudinal incision was made centered over the carpal tunnel. The incision was made through the skin to the subcutaneous tissues using a #15 blade. Dissection was made down to the level of the transverse carpal ligament with care being taken to protect the palmar cutaneous nerve. Once the transverse carpal ligament was clearly visualized, a longitudinal incision was made in the transverse carpal ligament 1st using a #15 blade, then using tenotomy scissors under direct visualization. Care was taken to look for and protect the motor branch of the median nerve when seen in this area. Once satisfied with our carpal tunnel release the wound was copiously irrigated with normal saline and hemostasis was obtained with a brief period of local pressure. The skin edges were reapproximated with some 5.0 nylon suture material and a sterile dressing was applied. The patient appears to have tolerated the procedure well and with no complications. All digits were well vascularized at the conclusion of the case.
[2023-03-24 12:50] VITALS: BP 144/78; PULSE 56; RESP 18; TEMP 36.7
== END 2023-03-24 11:05 | disposition home or self-care (01) ==
PROVIDERS: PCP Internal Medicine; Visit Provider Orthopaedic Surgery
PROC: (CPT 64721; principal; 2023-03-24 10:00)
DX: G56.02 Carpal tunnel syndrome, left upper limb (principal); R20.0 Anesthesia of skin; R20.2 Paresthesia of skin; J45.909 Unspecified asthma, uncomplicated; M51.36 Other intervertebral disc degeneration, lumbar region; M13.0 Polyarthritis, unspecified; M79.7 Fibromyalgia; M06.00 Rheumatoid arthritis without rheumatoid factor, unspecified site; I10 Essential (primary) hypertension; D75.1 Secondary polycythemia; Z85.43 Personal history of malignant neoplasm of ovary; Z79.899 Other long term (current) drug therapy; Z98.890 Other specified postprocedural states
CPT/HCPCS: 64721; J0171

== ENCOUNTER → 2023-03-24 08:40 | Outpatient (BNV) | payer OTHER, SELFPAY | PROVIDERS: PCP Internal Medicine; Visit Provider Orthopaedic Surgery | DX: G56.02 Carpal tunnel syndrome, left upper limb (principal) | CPT/HCPCS: 64721 ==

== ENCOUNTER 2023-04-01 10:02 | Outpatient (AMB) | payer OTHER, SELFPAY ==
--- NOTE | 2023-04-01 10:22 | A.OFFVIS_ITS ---
Intake Intake Visit Reasons: PO-Lt CTR 03/24/23 AR Intake Note: This is a 48 year old female who presents for a post op left carpal tunnel release done on 03/24/23 with AR. The patient reports some tingling but denies pain. She reports soreness around the suture site. Allergies No Known Allergies Allergy (Verified 04/01/23 10:30) Medication List - Last Reconciled 04/01/23 by Nieves Teran RN albuterol sulfate 90 mcg/actuation 2 puffs inhalation QID PRN amitriptyline 75 mg (3 x 25 mg) PO BEDTIME 30 days aspirin 81 mg PO DAILY baclofen 10 mg PO BID PRN ergocalciferol (vitamin D2) (Vitamin D2) 1,250 mcg PO QWEEK fluticasone propion-salmeterol 230-21 mcg/actuation (Advair HFA) 2 puffs inhalation BID furosemide 40 mg PO DAILY isosorbide mononitrate ER 30 mg PO DAILY loratadine 10 mg PO DAILY lorazepam 0.5 mg PO QPM magnesium oxide 400 mg PO BEDTIME 30 days meclizine 25 mg PO TID PRN metoclopramide HCl 5 mg PO TID montelukast 10 mg PO DAILY omeprazole 20 mg PO DAILY ondansetron HCl mg PO riboflavin (vitamin B2) 400 mg PO DAILY 30 days rosuvastatin 5 mg PO DAILY valacyclovir 500 mg PO DAILY HPI PO-Lt CTR 03/24/23 AR HPI Details The patient is a 48-year-old woman who is status post a left carpal tunnel release with ms on 03/24/2023. She says that she is doing well, but she has not felt any improvement in her numbness and tingling in her left hand. She did have dense numbness prior to surgery. 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, inflammatory HTN (hypertension) Shoulder tendonitis Axial spondyloarthritis Ovarian cancer Erythrocytosis Gastroparesis Surgical History S/P breast implant, saline History of carpal tunnel release History of total hysterectomy with bilateral salpingo-oophorectomy (BSO) Hx of cholecystectomy Family History Mother Glaucoma Rheumatoid arthritis Hypertension Sarcoidosis Father History of thyroid disorder Hypertension Diabetes Rheumatoid arthritis Psoriasis Heart disease Paternal Grandmother Diabetes Heart disease Social History Household Members: None Alcohol intake: never Patient Tobacco Use Status: Never used Tobacco Current occupational status: unemployed Current occupation: right hand Physical Exam Extrem Other: The patient was alert oriented and in no acute distress. Her wound is healing well with no erythema drainage or evidence of infection. Sutures were removed and Steri-Strips applied today. She still has dense numbness in the median nerve distribution. Good APB muscle belly firing. Normal sensation to the left small finger. With regards to the right hand she is very happy and has normal sensation to all digits. Assessment & Plan Assessment & Plan (1) Carpal tunnel syndrome of left wrist: Code(s): G56.02 - Carpal tunnel syndrome, left upper limb (2) Carpal tunnel syndrome of right wrist: Code(s): G56.01 - Carpal tunnel syndrome, right upper limb Plan Assessment & Plan: 1. Left Carpal tunnel syndrome status post release Date of surgery 03/24/2023 Preoperatively With dense numbness She still has dense numbness without any appreciable change at this time. I educated her about the postoperative course. She got some OT hand therapy for her right side and she thinks that that really helped her. She is very interested in having some OT hand therapy for the left side to help her with desensitization issues as well as regaining function. She has RA & Fibromyalgia, and currently takes Methotrexate. She denies any other rheumatologic medications at this time. 2. Right Carpal tunnel syndrome, S/P release Pre-operative symptoms intermittent, but daily, worse at night Now with normal sensation She no longer has hyper sensitivity at the surgical site. I had ordered OT hand therapy to work on desensitization 3. Bilateral generalized hand pain Negative Marija tests bilaterally today. She has a Hx of steroid injections in the past, along with Prednisone, methotrexate, and Humira use She denies being on any Rheumatologic medication at this time. I recommend she continue to follow with her Sales Trainee for medical intervention She will work on ROM and trying to maintain her joint ROM Orders: Orders OT Evaluation and Treatment Today G56.01 - Carpal tunnel syndrome, right upper limb, G56.02 - Carpal tunnel syndrome, left upper limb Coding Level of Care Code Global (35692) Diagnoses Carpal tunnel syndrome of left wrist G56.02 Carpal tunnel syndrome of right wrist G56.01
== END 2023-04-01 10:47 | disposition home or self-care (01) ==
PROVIDERS: PCP Internal Medicine; Visit Provider Orthopaedic Surgery
DX: G56.02 Carpal tunnel syndrome, left upper limb (principal); G56.01 Carpal tunnel syndrome, right upper limb
CPT/HCPCS: 99024

== ENCOUNTER → 2023-04-01 10:02 | Outpatient (BNVA) | payer OTHER, SELFPAY | PROVIDERS: PCP Internal Medicine; Visit Provider Orthopaedic Surgery ==

== ENCOUNTER 2023-06-10 08:00 | Outpatient (RCR) | payer OTHER, SELFPAY ==
--- NOTE | 2023-04-20 11:56 | MHC.PT.EP ---
[facility] [place] Office [place] Office [place] Office [address] Clifford Roth [address] [phone] F: [phone] F: [phone] F: [phone] F: [phone] Physical Therapy Plan of Care Date of Evaluation: 04/20/23 Date of Surgery: Diagnosis: This is a 48 female presenting to skilled PT with a script for L shoulder pain. Assessment: This is a 48 female presenting to skilled PT with a script for L shoulder pain. Patient reporting ongoing L shoulder pain for years now. She has tried PT (multiple times, the last time was less than a year ago and she reports that the PT did not think she was appropriate for PT). She has also tried multiple cortisone injections (neither PT or cortisone were helpful). She reports that she was supposed to have surgery on the L shoulder however due to insurance she did not have this (3 years ago, has not been back to see an orthopedic surgeon since then). She reports everything is painful/has pain at rest and with movement. 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 She is being followed by pain management who sent her here for shoulder management (she is also awaiting an MRI and pain stimulator for her back as well through this department). Her pain is located anterior GHJ, described as achy, dull and sharp. Assessment reveals pain that ranges from up to a 9/10 at the worst. Patient demos decreased B shoulder, elbow and cervical ROM, strength of B shoulder's, TTP at anterior GHJ joint line and soft tissues, UT and impaired posture with forward head and rounded shoulders. She is extremely limited with motion due to severe pain and is unable to inspector metal can (per patient report due to CTS). I educated her on how these things will limit my capabilities to assist her and the importance of movement for pain management. Based on functional limitations, impaired QOL and pain tolerance patient is a good candidate for skilled PT 2x/wk for 4wks. Frequency and Duration: The patient will be seen 2x/wk for 4wks Short Term Goals: (In 2 weeks) Demo I with HEP Improve shoulder AROM by at least 10 degs Demo proper scapular recruitment with appropriate shoulder strengthening exercises Shelter Goals: (in 4 wks) Improve shoulder nonpainful AROM to almost near equal B Demo at least 1 grade improvement in MMT for shoulder Improve SPADI by at least 10 points Improve overall functional QOL by at least 50% Treatment Plan: Modalities to reduce pain, spasms and effusion. Manual therapy to restore motion and function. Therapeutic exercise to improve strength and flexibility. Neuromuscular re-education for posture and balance. Therapeutic activities to return to functional activities of daily living. Electronically signed by: Swati Shepherd PT Please sign and return to therapist. Thank you for your referral.
--- NOTE | 2023-07-06 13:45 | MHC.PT.DC ---
[facility] [place] Office [place] Office [place] Office [address] Clifford Roth [address] [phone] F: [phone] F: [phone] F: [phone] F: [phone] Physical Therapy Discharge Report Diagnosis: This is a 48 female presenting to skilled PT with a script for L shoulder pain. Date of Surgery: Date of Evaluation: 04/20/23 Date of Discharge: 07/06/23 Treatments to Date: 12 Cancellations to Date: 0 No Shows to Date: 0 Discharge Status: Achieved Goals Improved Function Independent with HEP Discharge Summary: Patient with improved ROM and strength since evaluation. She has a good HEP to continue on her own. Reports increasing activities at home with assembling decorations. She will be starting OT soon so our plan is to DC at this time. Educated her on a 30 day chart hold if needed and also educated her to call PCP if shoulder pain increases once again. Chart DC'd after 30 days. Electronically signed by: Swati Shepherd PT Please sign and return to therapist. Thank you for your referral.
== END 2023-07-06 13:46 | disposition home or self-care (01) ==
LOC: HO.PTCHIC 08:00
PROVIDERS: PCP Internal Medicine; Visit Provider Registered Nurse Emergency
DX: M25.512 Pain in left shoulder (principal)
CPT/HCPCS: 97014; 97110; 97116; 97140; 97162

== ENCOUNTER 2023-08-29 10:00 | Outpatient (RCR) | payer OTHER, SELFPAY ==
--- NOTE | 2023-07-05 16:18 | MHC.OT.OEV ---
[address] [phone] F: [phone] Occupational Therapy Evaluation Patient Name: Luz Branch Diagnosis: (L) Carpal Tunnel Release Date of Onset: Date of Surgery: 03/24/23 Attending Provider: Betina Dimas Prescribed Treatment: Follow Up Appointment: History of Current Condition: This is a 48 year old female s/p left carpal tunnel release on 03/24/23. Who was referred to skilled occupational therapy Betina Dimas, for CTS symptoms. 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 She receives assistance for ADLs from [employer] services for hair, grooming and IADLS such as grocery shopping. Patient lives home a lone in a duplex with 5 RABIA, has support of her fiance. She reports numbness of the left hand but states the tingling has decreased substantially. She reports 8/10 pain at rest and 10/10 pain during activity. Significant Medical History: ovarian CA, hx of CTR surgery on 04/01, fibromyalgia, RA Precautions/Contraindications: ovarian CA, hx of CTR surgery on 04/01, fibromyalgia, RA Patient Goals: To move better and the not feel like I'm being cut open. 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[employer] mod (A) upper body self care tasks Sleep: Driving: (I'ly) Vision: Good Balance: WFL Pain Assessment Pain Score: 8/10 at rest, 10/10 at night Pain Scale Used: Numeric (0 - 10) Pain Location and Description: volar aspect of the (L) wrist Aggravating Factors: Use Alleviating Factors: Skin and Soft Tissue Assessment Skin and Soft Tissue: Other Comments: Skin intact score on (L) wrist Nerve assessment Ulnar Nerve: WNL Median Nerve: Left Impaired Radial Nerve: WNL Comments: Reports numbness, tingling occasionally Sensory Assessment Temperature: Light Touch: WNL Proprioception: Vibration: Comments: Monofilament test Edema Assessment Upper Extremity: Lower Extremity: Right Impaired Left Impaired Comments: Noted edema in both hands Patient stated she has been on diuretics for edema Dexterity Assessment Dexterity: B/L Impaired Comments: Functional Dexterity Test (R) hand 37 seconds (L) hand 45seconds normal= 27 or less Special Tests Comments: (+) Phalen's (-)Tinel's sign. Finger opposition performed = impaired AROM(PROM) Strength Cervical Cervical Flexion: Cervical Extension: Cervical Lateral Flexion: Cervical Rotation: Comments: Shoulder Flexion: 90* Extension: WFL Abduction: 90* Internal Rotation: External Rotation: Comments: Flexion: 4/5 Extension:3/5 Abduction: Internal Rotation: External Rotation: 3/5 Comments: Elbow Flexion: WFL Extension: WFL Pronation: Supination: Comments: Flexion: 4/5 Extension: 3/5 Pronation: Supination: Comments: Wrist Flexion: 50* Extension: 15* Ulnar Deviation: Radial Deviation: Comments: Flexion: Extension: Ulnar Deviation: Radial Deviation: Comments: Not tested due to pain Thumb Thumb CMC Flexion: WFL Thumb MCP Flexion: Thumb IP Flexion: Radial Abduction: Palmar Abduction: [place] ([place] 0-10): Comments: Digits Index MCP: WFL PIP: DIP: Long MCP: WFL PIP: DIP: Ring MCP: WFL PIP: DIP: Small MCP: WFL PIP: DIP: Comments: Gross Grasp: (R) 1lbs. (L)1.6lbs. Lateral Pinch: 1lbs Two-Point Pinch: 1 lbs. Three-Jaw Maurice: 1lbs. Comments: Patient performed plastic surgery technician strength with submaximal effort Patient Education Primary Language: Director Adult Required: No Current Knowledge: Teaching Method: Education Needs Identified on Evaluation: How did patient/family demonstrate learning? Barriers to Learning: Readiness for Learning: Who was educated? Comments: Plan of Care Assessment: This is a 48 year old female s/p left carpal tunnel release on 03/24/23. Who was referred to skilled occupational therapy Betina Dimas, for CTS symptoms. 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 She receives assistance for ADLs from [employer] services for hair, grooming and IADLS such as grocery shopping. Patient lives home a lone in a duplex with 5 RABIA, has support of her fiance. She reports numbness of the left hand and reports she has tingling occasionally, it has decreased substantially since her surgery. She reports 8/10 pain at rest and 10/10 pain during activity. Patient's current range of motion measurements are as follows: 90* shoulder flexion/ abduction, 15* wrist extension, 50* wrist flexion. Patient's current plastic surgery technician strength is 1 lbs. (R) hand and 1.6 lbs. (L) hand, with submaximal effort. Provocative revealed (+) Phalen's and (-)Tinel's sign. Quick DASH= 86.4% indicating patient's perceived impairment during performance of self care tasks such as washing hair, bathing, completing laundry. Patient's current level of function is mod (A) upper body self care tasks as patient presents with impaired coordination, impaired range of motion, impaired functional activity tolerance as she reports 8/10 pain at rest and 10/10 pain during activity, impaired strength and impaired performance during self care tasks. Due to the documented impairments it is recommended that patient receive skilled occupational therapy in order for patient to achieve her prior level of function and to achieve her stated goal of decreasing pain. Thank you for your referral. STG Duration: Short Term Goals: Patient will report decreased (L) wrist pain from 8/10 to 6/10 pain Patient will increase wrist extension to 30* Patient will increase wrist flexion to 40* Patient will tolerate wrist splint for at least and hour to decrease CTS Patient will increase (L) plastic surgery technician strength to 5lbs. LTG Duration: Mcfp Goals: Patient will report 0/10 pain in (L) wrist Patient's (L) wrist flexion will be WFL Patient's (L) wrist extension will be WFL Patient will be (I) with home exercise program Patient will tolerate wrist splint throughout whole night Patient will be (I) donning/doffing wrist splint Patient will increase (L) plastic surgery technician strength to at least 20lbs. Patient will decrease Quick DASH score to at least 50% indicating improved function of (L) upper extremity Frequency and Duration: The patient will be seen Treatment Plan: Therapeutic Exercise Therapeutic Activity Home Exercise Program Splinting Patient Education Edema Control ADL Training Iontophoresis Paraffin Fluidotherapy MHP Cold Packs Kinesiotaping OT evaluation and treat Electronically Signed By: ROHAN Alcala/Beck, CLT Reviewed/agree with student documentation: Therapist: Please sign and return to therapist, Thank you for your referral.
--- NOTE | 2023-08-19 16:22 | MHC.OT.OP ---
[address] [phone] F: [phone] Occupational Therapy Progress Note Patient Name: Luz Branch Diagnosis: (L) Carpal Tunnel Release Date of Surgery: 03/24/23 Date of Evaluation: 07/05/23 Treatments to Date: 10 Cancellations to Date: 1 No Shows to Date: Subjective: It's about a 8 Pain Score: 8 Pain Location: (L) volar wrist Objective Measures: Crematorium Operator strength: (R)7.6lbs., (L)7.6lbs. ROM assessment: wrist flexion 95*, extension 37*, ulnar 7*, radial 5*deviation Quick DASH= 77.3 Functional Dexterity Test= (R)35.41 seconds, (L) 36.14 seconds Status: Progressing Assessment: Patient has had 10 1:1 skilled occupational therapy sessions focusing on pain management, strength, increasing ROM and independence with home exercises program for improved upper extremity function. Although a variety of pain management technique have been trialed patient continues to report 7-8/10 pain constantly. However, throughout the sessions patient has demonstrated the ability to perform weight resistive activities such as twisting objects, using waited handles to manipulate objects without report of pain or discomfort or facial grimaces, this also demonstrates her ability to perform functional tasks. Patient's foundation digger strength was assessed at today's visit where she achieved an average of 7.6lbs. (B'ly), however in a past treatment session patient achieve approximately 16lbs. when her foundation digger strength was reassessed indicating a discrepancy. It has also been noted when performing foundation digger strength assessments patient uses submaximal effort. Patient's range of motion has increased and her wrist flexion is WFLs her and Quick DASH has improved by decreasing by 8.9 points demonstrating progress and potential to achieve her prior level of function. It is recommended that patient continue with skilled OT services to increase active ROM and strength for improved performance during self care tasks and to achieve her PLOF. Short Term Goals: Patient will report decreased (L) wrist pain from 8/10 to 6/10 pain- NOT MET Patient will increase wrist extension to 30* - MET Patient will increase wrist flexion to 40* - MET Patient will tolerate wrist splint for at least and hour to decrease CTS - D/C goal Patient will increase (L) foundation digger strength to 5lbs. - MET Alf Goals: Patient will report 0/10 pain in (L) wrist - NOT MET Patient's (L) wrist flexion will be WFL- MET Patient's (L) wrist extension will be WFL- NOT MET Patient will be (I) with home exercise program- MET Patient will tolerate wrist splint throughout whole night - D/C goal Patient will be (I) donning/doffing wrist splint - D/C goal Patient will increase (L) foundation digger strength to at least 20lbs.- NOT MET Patient will decrease Quick DASH score to at least 50% indicating improved function of (L) upper extremity- NOT MET (decreased by 8.9) Frequency and Duration: The patient will be seen 2x a week for 4 weeks Treatment Plan: Therapeutic Exercise Therapeutic Activity Home Exercise Program Patient Education Edema Control ADL Training Ultrasound Fluidotherapy MHP Cold Packs Kinesiotaping OT evaluation and treat Electronically Signed By: Swati Nelson OTR/L, CLT Reviewed/agree with student documentation: Therapist:
--- NOTE | 2023-08-29 11:35 | MHC.OT.DC ---
[address] [phone] F: [phone] Occupational Therapy Discharge Note Patient Name: Luz Branch Provider: Iwona Browning Diagnosis: (L) Carpal Tunnel Release Date of Surgery: 03/24/23 Date of Evaluation: 07/05/23 Date of Discharge: Treatments to Date: 13 Cancellations to Date: 1 No Shows to Date: Discharge Status: Improved Function Independent with HEP Discharge Summary: Patient has had 13 1:1 visits with focus on (L) wrist pain. Over the course of therapy patient has improved her Quick DASH score from 86.4 to 63.6 a 22.8 point decrease indicating improvement of the UE. She has improved her grave cleaner strength from an average form 1lbs. to 10lbs. (L). However when performing grave cleaner strength assessment it was observed she used submaximal effort. She demonstrated the ability to perform functional task such as holding a hammer while performing supination/pronation and lifting a weight box (14lbs. approximately) without report of increased pain or facial grimaces. Her ROM is WFL. She has continued to report 7/10 constantly during therapy but demonstrated the ability to perform functional tasks . As evident by the Quick DASH, grave cleaner strength and ability to life weighted objects it appears her (L)UE has improved in function and is able to perform functional tasks. Patient is discharged from skilled OT services as it appears patient has achieved her baseline. Patient is in agreement with plan. Thank you for your referral, patient was a pleasure to work with. Electronically Signed By: Swati Nelson OTR/Beck, CLT Reviewed/agree with student documentation: Therapist: Please Sign and return to therapist, thank you for your referral.
== END 2023-08-29 14:51 | disposition home or self-care (01) ==
LOC: HO.OT 10:00
PROVIDERS: PCP Internal Medicine; Visit Provider Physician Assistant
DX: G56.03 Carpal tunnel syndrome, bilateral upper limbs (principal)
CPT/HCPCS: 97035; 97110; 97140; 97166; 97168; 97535

== ENCOUNTER 2024-03-01 08:32 | Outpatient (AMB) | payer OTHER, SELFPAY ==
--- NOTE | 2024-03-01 08:37 | A.OFFVIS_ITS ---
Vital Signs 03/01/24 08:38 Height 4 ft 11 in Weight 149 lb BMI 30.1 BP 112/76 Blood Pressure Location Rt brachial Position Sitting Pulse 72 Pulse Source Pulse Oximeter Pulse Oximetry (%) 98 Oxygen Delivery Method Room Air Intake Visit Reasons: New problem Intake Note: Patient presents for tingling and numbness on feet and hands Allergies No Known Allergies Allergy (Verified 03/01/24 08:41) Medication List - Last Reconciled 03/01/24 by MICHELLE Mcclure albuterol sulfate 90 mcg/actuation 2 puffs inhalation QID PRN amitriptyline 75 mg (3 x 25 mg) PO BEDTIME 30 days aspirin 81 mg PO DAILY baclofen 10 mg PO BID PRN ergocalciferol (vitamin D2) (Vitamin D2) 1,250 mcg PO QWEEK fluticasone propion-salmeterol 230-21 mcg/actuation (Advair HFA) 2 puffs inhalation BID furosemide 40 mg PO DAILY isosorbide mononitrate ER 30 mg PO DAILY loratadine 10 mg PO DAILY lorazepam 0.5 mg PO QPM magnesium oxide 400 mg PO BEDTIME 30 days meclizine 25 mg PO TID PRN metoclopramide HCl 5 mg PO TID montelukast 10 mg PO DAILY omeprazole 20 mg PO DAILY ondansetron HCl mg PO riboflavin (vitamin B2) 400 mg PO DAILY 30 days rosuvastatin 5 mg PO DAILY valacyclovir 500 mg PO DAILY HPI Comments Details: 49-yr-old female presents for f/u visit to discuss BLE s/s. She was previously seen for migraine. Last seen in 2021. Pt reports she has had BLE, L > R, tingling, numbness, jerking. This occurs more at rest. More so in the evening. She has an urge to move at rest and creepy crawling sensation. Her legs easily fall asleep. She has urge to get up and move but has to do so slowly due to the tingling and numbness. She does have chronic lower back pain- h/o bulging lumbar discs. She has been doing PT for her left knee- has excruciating knee pain and knee gives out. Right leg feels a bit weaker d/t compensating for left leg. Sometimes has low back pain radiating down BLE. She has this for a few yrs, but is progressing. Symptoms start around mid-afternoon. She was taking Requip 0.25mg qhs- which was helping but the effect has waned. Denies h/o compulsive behaviors. In the past tried Gabapentin x's > 3 months, helped body pains but then effect waned, and did not tolerate. On Amitriptyline 25mg qhs- uses for sleep. She is using her CPAP nightly. She does have a h/o maria a CT repair- but did not help much. She is f/b Dr Aubrey Castaneda, rheumatology. [phone], phone Baseline headache: Pressure sensation in bilateral frontal and occipital region moving into neck a/w photophobia, phonophobia, osmophobia, nausea, room spinning dizziness, brain fog. 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, inflammatory HTN (hypertension) Shoulder tendonitis Axial spondyloarthritis Ovarian cancer Erythrocytosis Gastroparesis Surgical History S/P breast implant, saline History of carpal tunnel release History of total hysterectomy with bilateral salpingo-oophorectomy (BSO) Hx of cholecystectomy Family History Mother Glaucoma Rheumatoid arthritis Hypertension Sarcoidosis Father History of thyroid disorder Hypertension Diabetes Rheumatoid arthritis Psoriasis Heart disease Paternal Grandmother Diabetes Heart disease Social History Household Members: None Alcohol intake: never Patient Tobacco Use Status: Never used Tobacco Current occupational status: unemployed Current occupation: right hand Physical Exam Vital Signs: Last Vital Signs Pulse 72 03/01/24 08:38 BP 112/76 03/01/24 08:38 Pulse Ox 98 03/01/24 08:38 Oxygen Delivery Method Room Air 03/01/24 08:38 BMI result Body Mass Index 30.1 Const General: cooperative and no acute distress Orientation/consciousness: patient oriented x3 Resp Effort & Inspection: normal respiratory effort and able to speak in complete sentences Neuro General: patient oriented x3 Cranial nerves: Yes CN's II-XII intact bilaterally Cognition (Neuro): normal cognition Gait exam (Neuro): Antalgic gait present Deep tendon reflexes (DTR's): Right patellar reflex intensity grade: 2+ and Left patellar reflex intensity grade: 2+ Psych Appearance: grossly normal Mental Status: mental status grossly normal Speech and movement: Normal speech and movement present Affect: normal affect Attitude: cooperative Results Reviewed Results Reviewed: [facility] Result Report Patient:Luz Branch Date of Service:04/06/23 ?? Patient Gender:Female Ordering Provider:Smith Whitlock :1975?? FinalX-RAY EXAM OF LOWER SPINE WITH OBLIQUES Exam Date:04/06/2023 10:35 AM Ordering Diagnosis: Acute exacerbation of chronic low back pain ?Lumbosacral spine, 4 views.History neck pain. Comparison with prior studies, latest from 09/28/2018. Vertebral bodies are maintained in height.?There are discogenic spurs at L2-3 L3-4 and L4-5 levels. There is narrowing of the disc space at L5- S1 level. There are hypertrophic changes in the facet joints at L4-5 and L5-S1 levels. No fractures, dislocations or destructive lesions.? CONCLUSIONS: Degenerative changes as detailed.? Reading Radiologist: Assessment & Plan Assessment & Plan (1) Paresthesia of both lower extremities: Code(s): R20.2 - Paresthesia of skin Category: Medical (2) Restless leg syndrome: Code(s): G25.81 - Restless legs syndrome Category: Medical (3) Chronic migraine without aura: Code(s): G43.709 - Chronic migraine without aura, not intractable, without status migrainosus Category: Medical Plan Pt is advised to undergo BLE EMG/NCS. Will request labs from Dr Aubrey Castaneda, rheumatology. [phone], phone. Upon review, consider additional lab testing for common etiologies of RLS. May slowly increase Ropinirole from 0.25mg qhs to 1 tab tid (mid-afternoon, 3 hrs before bed, and at bedtime). For now continue Amitriptyline- as it helps w/ sleep, however advised it may worsen RLS s/s. Consider adding acute migarine tx upon review of above. Orders: Orders NE nerve conduction velocity Today R20.2 - Paresthesia of skin NE electromyogram (EMG) Today R20.2 - Paresthesia of skin Medications: New ropinirole 0.25 mg PO TID 90 tabs 3RF 30 days Coding Level of Care Code Est Pt Level 4 (06625) Diagnoses Paresthesia of both lower extremities R20.2 Restless leg syndrome G25.81 Chronic migraine without aura G43.708
[2024-03-01 08:38] VITALS: BP 112/76; PULSE 72; O2SAT 98; BMI 30.1
== END 2024-03-01 09:36 | disposition home or self-care (01) ==
PROVIDERS: PCP Internal Medicine; Visit Provider Nurse Practitioner Family
DX: R20.2 Paresthesia of skin (principal); G25.81 Restless legs syndrome; G43.709 Chronic migraine without aura, not intractable, without status migrainosus
CPT/HCPCS: 99214

== ENCOUNTER → 2024-03-01 08:32 | Outpatient (BNVA) | payer OTHER, SELFPAY | PROVIDERS: PCP Internal Medicine; Visit Provider Nurse Practitioner Family | DX: R20.2 Paresthesia of skin (principal); G25.81 Restless legs syndrome; G43.709 Chronic migraine without aura, not intractable, without status migrainosus | CPT/HCPCS: 99212 ==

== ENCOUNTER 2024-03-30 07:00 | Outpatient (RCR) | payer OTHER, SELFPAY | END 2024-04-30 06:31 | disposition home or self-care (01) | LOC: HO.PTCHIC 07:00 | PROVIDERS: PCP Internal Medicine; Visit Provider Physician Assistant | DX: M25.561 Pain in right knee (principal); M25.562 Pain in left knee | CPT/HCPCS: 97014; 97110; 97140; 97162; 97535 ==

== ENCOUNTER 2024-04-05 15:31 | Outpatient (REF) | payer OTHER, SELFPAY ==
--- NOTE | 2024-04-05 15:34 | EMG_ITS ---
Chief complaint: Chronic back pain and leg numbness Reason for referral: Evaluate for radiculopathy Referred by: Vicky Dale NP Procedure done: Bilateral lower extremity NCS/EMG Precautions and/or limitations: None The limb temperature was monitored continuously and remained between 32-36 degrees C during the performance of the NCS. Nerve Conduction Studies Anti Sensory Summary Table ?Stim Site NR Onset (ms) Norm Onset (ms) Peak (ms) Norm Peak (ms) O-P Amp (?V) Norm O-P Amp Site1 Site2 Delta-0 (ms) Dist (cm) Ricardo (m/s) Norm Ricardo (m/s) Left Sural Anti Sensory (Lat Mall) Calf ? 2.3 2.8 <4.0 5.0 >5.0 Calf Lat Mall 2.3 14.0 61 Right Sural Anti Sensory (Lat Mall) Calf ? 2.3 2.9 <4.0 7.2 >5.0 Calf Lat Mall 2.3 14.0 61 Motor Summary Table ?Stim Site NR Onset (ms) Norm Onset (ms) O-P Amp (mV) Norm O-P Amp iAmp (mV) Amp (1st) (%) Site1 Site2 Delta-0 (ms) Dist (cm) Ricardo (m/s) Norm Ricardo (m/s) Left Peroneal Motor (Ext Dig Brev) Ankle ? 3.8 <4.0 3.9 >2.5 4.4 100.0 Ankle Ext Dig Brev 3.8 0.0 B Fib ? 9.2 3.5 3.8 89.7 B Fib Ankle 5.4 30.0 56 >40 Poplt ? 9.5 3.6 3.9 92.3 Poplt B Fib 0.3 4.0 133 >40 Left Tibial Motor (Abd Farah Brev) Ankle ? 5.0 <5 7.5 >2.5 9.8 100.0 Ankle Abd Farah Brev 5.0 0.0 Knee ? 11.0 7.9 11.5 105.3 Knee Ankle 6.0 35.5 59 >40 Right Tibial Motor (Abd Farah Brev) Ankle ? 4.0 <5 4.3 >2.5 5.8 100.0 Ankle Abd Farah Brev 4.0 0.0 Knee ? 10.5 8.6 11.6 200.0 Knee Ankle 6.5 38.0 58 >40 EMG ?Side Muscle Nerve Root Ins Act Fibs Psw Amp Dur Poly Recrt Int Pat Comment Right AbdHallucis MedPlantar S1-2 Nml Nml Nml Nml Nml 0 Nml Complete Right AntTibialis Dp Br Peron L4-5 Nml Nml Nml Nml Nml 0 Nml Complete Right PostTibialis Tibial L5, S1 Nml Nml Nml Nml Nml 0 Nml Complete Right MedGastroc Tibial S1-2 Nml Nml Nml Nml Nml 0 Nml Complete Right VastusMed Femoral L2-4 Nml Nml Nml Nml Nml 0 Nml Complete Left AbdHallucis MedPlantar S1-2 Nml Nml Nml Nml Nml 0 Nml Complete Left AntTibialis Dp Br Peron L4-5 Nml Nml Nml Nml Nml 0 Nml Complete Left PostTibialis Tibial L5, S1 Nml Nml Nml Nml Nml 0 Nml Complete Left MedGastroc Tibial S1-2 Nml Nml Nml Nml Nml 0 Nml Complete Left VastusMed Femoral L2-4 Nml Nml Nml Nml Nml 0 Nml Complete Paraspinal EMG ?Side Muscle Nerve Root Ins Act Fibs Psw Comment Right Lumbar Upper Rami Nml Nml Nml Right Lumbar Mid Rami Nml Nml Nml Right Lumbar Lower Rami Nml Nml Nml Left Lumbar Upper Rami Nml Nml Nml Left Lumbar Mid Rami Nml Nml Nml Left Lumbar Lower Rami Nml Nml Nml FINDINGS: All motor and sensory nerves tested showed normal latencies, amplitudes and conduction velocities. Concentric needle EMG was performed in selected muscles of the bilateral lower extremity. Study did not reveal signs of electric abnormalities as shown in the table above. IMPRESSION: 1. This is a normal study. 2. There is no electrodiagnostic evidence for peroneal neuropathy, tibial neuropathy, lumbosacral plexopathy, lumbar radiculopathy, or peripheral neuropathy. Thank you for your kind referral. Siri Wilson MD, CLAY Board Certified, [place] Board of [employer] Medicine and Rehabilitation (ABPMR) Board Certified, [place] Board of Electrodiagnostic Medicine (ABEM) CODIN [address]15 x 2 [facility]
== END 2024-04-05 15:32 | disposition home or self-care (01) ==
LOC: HO.NEURO 15:31
PROVIDERS: PCP Internal Medicine; Visit Provider Nurse Practitioner Family
DX: R20.2 Paresthesia of skin (principal)
CPT/HCPCS: 95886; 95909

== ENCOUNTER → 2024-04-05 15:34 | Outpatient (BNV) | payer OTHER, SELFPAY | PROVIDERS: PCP Internal Medicine; Visit Provider Physical Medicine & Rehabilitation | DX: R20.0 Anesthesia of skin (principal); M54.50 Low back pain, unspecified | CPT/HCPCS: 95886; 95909 ==

== ENCOUNTER 2024-09-05 15:34 | Outpatient (AMB) | payer OTHER, SELFPAY ==
[2024-09-05 15:35] VITALS: BP 112/80; PULSE 69; O2SAT 97; BMI 39.4
--- NOTE | 2024-09-05 15:35 | MHC.OFFVIS ---
Vital Signs 09/05/24 15:35 Height 4 ft 11 in Weight 195 lb BMI 39.4 BP 112/80 Blood Pressure Location Rt brachial Position Sitting Pulse 69 Pulse Source Pulse Oximeter Pulse Oximetry (%) 97 Oxygen Delivery Method Room Air Intake Visit Reasons: Follow Up Intake Note: Patient presents follow up paresthesia/migraine. EMG in chart Coil Repair Technician Required: No Accompanied by: Self / Same As Patient Allergies No Known Allergies Allergy (Verified 09/05/24 15:37) Medication List - Last Reconciled 09/05/24 by MICHELLE Mcclure albuterol sulfate 90 mcg/actuation 2 puffs inhalation QID PRN amitriptyline 75 mg (3 x 25 mg) PO BEDTIME 30 days aspirin 81 mg PO DAILY baclofen 10 mg PO BID PRN 30 days ergocalciferol (vitamin D2) (Vitamin D2) 1,250 mcg PO QWEEK fluticasone propion-salmeterol 230-21 mcg/actuation (Advair HFA) 2 puffs inhalation BID furosemide 40 mg PO DAILY isosorbide mononitrate ER 30 mg PO DAILY loratadine 10 mg PO DAILY lorazepam 0.5 mg PO QPM magnesium oxide 400 mg PO BEDTIME 30 days meclizine 25 mg PO TID PRN metoclopramide HCl 5 mg PO TID montelukast 10 mg PO DAILY omeprazole 20 mg PO DAILY ondansetron HCl mg PO riboflavin (vitamin B2) 400 mg PO DAILY 30 days ropinirole 0.5 mg (2 x 0.25 mg) PO TID 30 days rosuvastatin 5 mg PO DAILY ubrogepant (Ubrelvy) 50 - 100 mg (0.5 - 1 x 100 mg) PO ONCE PRN 30 days valacyclovir 500 mg PO DAILY HPI Comments Details: Chief [id number] female patient presents for follow-up of migraine, restless legs and sleep disturbances. Interval History- Patient reports she still has migraine headache almost every other day. She feels amitriptyline does help. Please usually using Tylenol, with some effect. At times using ibuprofen 800 mg, again with some effect. As continue on oxycodone/ APAP for fibromyalgia treatment. She has never tried sumatriptan. Baseline headache: Pressure sensation in bilateral frontal and occipital region moving into neck a/w photophobia, phonophobia, osmophobia, nausea, room spinning dizziness, brain fog. - Reports continued restlessness, especially when sitting for extended periods. No significant improvement in symptoms since the last visit. However, she feels that the ropinirole has been helpful since she started it. Previously did not tolerate gabapentin. Nerve conduction study was normal. - Reports she is compliant with her CPAP therapy. - Sleep issues reported with disturbances affecting daily functioning. Persistent sleep-related complications. - Patient continues to be followed by Rheumatology at [facility], and had a recent of drug reaction to Taltz with throat swelling and rash. New DMT therapy on hold, pending upcoming knee surgery. - Reports vitamin D deficiency, hypertension, hyperlipidemia, and muscle cramps. No new developments in these conditions noted during the visit. Diagnostic Studies - Nerve conduction study: Bilateral lower extremity normal. 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, inflammatory HTN (hypertension) Shoulder tendonitis Axial spondyloarthritis Ovarian cancer Erythrocytosis Gastroparesis Surgical History S/P breast implant, saline History of carpal tunnel release History of total hysterectomy with bilateral salpingo-oophorectomy (BSO) Hx of cholecystectomy Family History Mother Glaucoma Rheumatoid arthritis Hypertension Sarcoidosis Father History of thyroid disorder Hypertension Diabetes Rheumatoid arthritis Psoriasis Heart disease Paternal Grandmother Diabetes Heart disease Social History Household Members: None Alcohol intake: never Patient Tobacco Use Status: Never used Tobacco Current occupational status: unemployed Current occupation: right hand Physical Exam Vital Signs: Last Vital Signs Pulse 69 09/05/24 15:35 BP 112/80 09/05/24 15:35 Pulse Ox 97 09/05/24 15:35 Oxygen Delivery Method Room Air 09/05/24 15:35 BMI result Body Mass Index 39.4 Const General: cooperative and no acute distress Orientation/consciousness: patient oriented x3 Resp Effort & Inspection: normal respiratory effort and able to speak in complete sentences Neuro General: patient oriented x3 Cranial nerves: Yes CN's II-XII intact bilaterally Cognition (Neuro): normal cognition Gait exam (Neuro): Antalgic gait present Psych Appearance: grossly normal Mental Status: mental status grossly normal Speech and movement: Normal speech and movement present Affect: normal affect Attitude: cooperative Assessment & Plan Assessment & Plan (1) Chronic migraine without aura: Code(s): G43.709 - Chronic migraine without aura, not intractable, without status migrainosus Category: Medical (2) Restless leg syndrome: Code(s): G25.81 - Restless legs syndrome Category: Medical (3) Paresthesia of both lower extremities: Code(s): R20.2 - Paresthesia of skin Category: Medical Plan Discussion Notes During the visit, I reviewed current symptoms and reactions to previous treatments with the patient. Management options for restless legs syndrome and associated sleep issues were explored, including potential ways to optimize current medication regimens. I informed the patient about the availability of educational materials from the [place] [employer]. Reviewed interval BLE EMG /NCS results, which were normal. We discussed the necessity of re-checking certain lab values, including iron studies, vitamin levels, and other relevant assessments to rule out contributory anemia or deficiencies. Discussed that optimizing patient's restless leg and sleep symptoms may help to improve migraine control. Reviewed acute migraine treatment strategies, however reviewed that she is not a good candidate to trial triptans due to her cardiovascular and rheumatological conditions including HTN and HLD which require antihypertensive, diuretic, statin, DMT therapy Follow-up options were summarized with anticipation of further adjustments post-assessment of new results. Patient was informed and verbally consented to the use of an ambient scribe for clinic note documentation during this visit. Plan For RLS: Increase ropinirole from 0.25 mg t.i.d. to 0.5 mg t.i.d.. May use baclofen 10 mg b.i.d. as needed for muscle spasm /cramps. Check labs for common underlying etiologies. Continue using CPAP -managed by outside provider. For overall headache management: continue to optimize good self-care, including but not limited to maintaining a healthy diet, adequate fluid intake, adequate sleep, and engaging in regular physical activity. For acute headache treatment: Continue Tylenol prn. Trial Ubrogepant (Ubrelvy) 100mg tab, 1/2 - 1 tab (50-100mg) at onset of headache, may repeat in 2 hours. Max of 2 tabs (200mg) per 24 hours. May adjunct with OTC Tylenol 650mg q 4 hours, Ibuprofen 600mg q 6 hours, or Naproxen 440mg q 12 hrs as needed. Potential adverse effects, include but are not limited to fatigue, nausea, dry mouth, constipation Acute migraine treatment contraindications: All triptans and DHE due to HTN/HLD For headache prevention medication: continue Riboflavin 400mg qam. continue Magnesium 400mg qhs. continue Amitriptyline 75mg qhs. 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 Panel Today D64.9 - Anemia, unspecified, E55.9 - Vitamin D deficiency, unspecified, F41.9 - Anxiety disorder, unspecified, M25.50 - Pain in unspecified joint, M47.819 - Spondylosis without myelopathy or radiculopathy, site unspecified, R25.2 - Cramp and spasm, R74.01 - Elevation of levels of liver transaminase levels, Z79.52 - [facility] (current) use 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 Vitamin B12 and Folate Today D64.9 - Anemia, unspecified, E55.9 - Vitamin D deficiency, unspecified, F41.9 - Anxiety disorder, unspecified, M25.50 - Pain in unspecified joint, M47.819 - Spondylosis without myelopathy or radiculopathy, site unspecified, R25.2 - Cramp and spasm, R74.01 - Elevation of levels of liver transaminase levels, 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 Folate Today D64.9 - Anemia, unspecified, E55.9 - Vitamin D deficiency, unspecified, F41.9 - Anxiety disorder, unspecified, M25.50 - Pain in unspecified joint, M47.819 - Spondylosis without myelopathy or radiculopathy, site unspecified, R25.2 - Cramp and spasm, R74.01 - Elevation of levels of liver transaminase levels, 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 Vitamin B1 Today D64.9 - Anemia, unspecified, E55.9 - Vitamin D deficiency, unspecified, F41.9 - Anxiety disorder, unspecified, M25.50 - Pain in unspecified joint, M47.819 - Spondylosis without myelopathy or radiculopathy, site unspecified, R25.2 - Cramp and spasm, R74.01 - Elevation of levels of liver transaminase levels, Z79.52 - [facility] (current) use 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 Vitamin B6 Today D64.9 - Anemia, unspecified, E55.9 - Vitamin D deficiency, unspecified, F41.9 - Anxiety disorder, unspecified, M25.50 - Pain in unspecified joint, M47.819 - Spondylosis without myelopathy or radiculopathy, site unspecified, R25.2 - Cramp and spasm, R74.01 - Elevation of levels of liver transaminase levels, Z79.52 - [facility] (current) use 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 Magnesium Today D64.9 - Anemia, unspecified, E55.9 - Vitamin D deficiency, unspecified, F41.9 - Anxiety disorder, unspecified, M25.50 - Pain in unspecified joint, M47.819 - Spondylosis without myelopathy or radiculopathy, site unspecified, R25.2 - Cramp and spasm, R74.01 - Elevation of levels of liver transaminase levels, Z79.52 - [facility] (current) use 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 CRP High Sensitivity Today D64.9 - Anemia, unspecified, E55.9 - Vitamin D deficiency, unspecified, F41.9 - Anxiety disorder, unspecified, M25.50 - Pain in unspecified joint, M47.819 - Spondylosis without myelopathy or radiculopathy, site unspecified, R25.2 - Cramp and spasm, R74.01 - Elevation of levels of liver transaminase levels, Z79.52 - [facility] (current) use 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 Ferritin Today D64.9 - Anemia, unspecified, E55.9 - Vitamin D deficiency, unspecified, F41.9 - Anxiety disorder, unspecified, M25.50 - Pain in unspecified joint, M47.819 - Spondylosis without myelopathy or radiculopathy, site unspecified, R25.2 - Cramp and spasm, R74.01 - Elevation of levels of liver transaminase levels, Z79.52 - [facility] (current) use 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 IRON PROFILE Today D64.9 - Anemia, unspecified, E55.9 - Vitamin D deficiency, unspecified, F41.9 - Anxiety disorder, unspecified, M25.50 - Pain in unspecified joint, M47.819 - Spondylosis without myelopathy or radiculopathy, site unspecified, R25.2 - Cramp and spasm, R74.01 - Elevation of levels of liver transaminase levels, Z79.52 - [facility] (current) use 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 Methylmalonic Acid Today D64.9 - Anemia, unspecified, E55.9 - Vitamin D deficiency, unspecified, F41.9 - Anxiety disorder, unspecified, M25.50 - Pain in unspecified joint, M47.819 - Spondylosis without myelopathy or radiculopathy, site unspecified, R25.2 - Cramp and spasm, R74.01 - Elevation of levels of liver transaminase levels, Z79.52 - [facility] (current) use 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 Vitamin D 25-OH (D2 and D3) Today D64.9 - Anemia, unspecified, E55.9 - Vitamin D deficiency, unspecified, F41.9 - Anxiety disorder, unspecified, M25.50 - Pain in unspecified joint, M47.819 - Spondylosis without myelopathy or radiculopathy, site unspecified, R25.2 - Cramp and spasm, R74.01 - Elevation of levels of liver transaminase levels, 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 Hemoglobin A1c Today D64.9 - Anemia, unspecified, E55.9 - Vitamin D deficiency, unspecified, F41.9 - Anxiety disorder, unspecified, M25.50 - Pain in unspecified joint, M47.819 - Spondylosis without myelopathy or radiculopathy, site unspecified, R25.2 - Cramp and spasm, R74.01 - Elevation of levels of liver transaminase levels, 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 Lyme IgG/IgM w/reflex to WB Today D64.9 - Anemia, unspecified, E55.9 - Vitamin D deficiency, unspecified, F41.9 - Anxiety disorder, unspecified, M25.50 - Pain in unspecified joint, M47.819 - Spondylosis without myelopathy or radiculopathy, site unspecified, R25.2 - Cramp and spasm, R74.01 - Elevation of levels of liver transaminase levels, Z79.52 - [facility] (current) use 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 Creatine Kinase Total Today D64.9 - Anemia, unspecified, E55.9 - Vitamin D deficiency, unspecified, F41.9 - Anxiety disorder, unspecified, M25.50 - Pain in unspecified joint, M47.819 - Spondylosis without myelopathy or radiculopathy, site unspecified, R25.2 - Cramp and spasm, R74.01 - Elevation of levels of liver transaminase levels, Z79.52 - [facility] (current) use 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 Erythrocyte Sedimentation Rate Today D64.9 - Anemia, unspecified, E55.9 - Vitamin D deficiency, unspecified, F41.9 - Anxiety disorder, unspecified, M25.50 - Pain in unspecified joint, M47.819 - Spondylosis without myelopathy or radiculopathy, site unspecified, R25.2 - Cramp and spasm, R74.01 - Elevation of levels of liver transaminase levels, Z79.52 - [facility] (current) use 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 Homocysteine Today D64.9 - Anemia, unspecified, E55.9 - Vitamin D deficiency, unspecified, F41.9 - Anxiety disorder, unspecified, M25.50 - Pain in unspecified joint, M47.819 - Spondylosis without myelopathy or radiculopathy, site unspecified, R25.2 - Cramp and spasm, R74.01 - Elevation of levels of liver transaminase levels, Z79.52 - [facility] (current) use 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 TSH reflex Free T4 Today D64.9 - Anemia, unspecified, E55.9 - Vitamin D deficiency, unspecified, F41.9 - Anxiety disorder, unspecified, M25.50 - Pain in unspecified joint, M47.819 - Spondylosis without myelopathy or radiculopathy, site unspecified, R25.2 - Cramp and spasm, R74.01 - Elevation of levels of liver transaminase levels, 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 No driving while taking this medication 10 mg PO BID PRN 30 tabs 0RF muscle spasm To baclofen 10 mg PO BID 30 days PRN 30 tabs 1RF muscle spasm Refilled amitriptyline 75 mg (3 x 25 mg) PO BEDTIME 30 days 90 tabs 3RF magnesium oxide may hold for loose stools 400 mg PO BEDTIME 30 days 30 tabs 6RF riboflavin (vitamin B2) 400 mg PO DAILY 30 days 30 tabs 6RF Coding Level of Care Code Est Pt Level 4 (46306) Diagnoses Chronic migraine without aura G43.709 Restless leg syndrome G25.81 Paresthesia of both lower extremities R20.2
--- OUTSIDE RECORDS SUMMARY | 2024-09-05 18:49 | XMS_ITS | Encounter Summary ---
Author Organization [facility] Address [address] [place] [address] Care Team Providers Care Gem Setter Name Role Phone John Chavarria MD Primary Care Provider Reason for Visit * Reason Onset Date Comments Med Refill 08/20/2024 Zepbound w/titra tion Encounter Details Date Type Department Care Team (Late st Contact Info) Description 08/20/2024 Telephone Bariatric Surgery - [place] 175 [facility] [address] [place] [phone] Faustina Miller MD [address] [address] Med Refill (Zepbound w/titration) Social History Tobacco Use Types Packs/Day Years Used Date Smoking Tobacco: Never Smokeless Tobacco: Never Alcohol Use Standard Drinks/Week Comments No 0 (1 standard drink = 0.6 oz pur e alcohol) Comments No Sex and Gender Information Value Date Recorded Sex Assigned at Not on file Legal Sex Female 1:47 AM EST Gender Identity Not on file Sexual Orientation Not on file documented as of this encounter Progress Notes * Matilde De Dios - 08/24/2024 12:29 PM EST Patient calling for update on refill put in on 08/20. Message had not been routed to provider. * Matilde De Dios - 08/20/2024 9:55 AM EST Patient did well on Zepbound 2.5 mgs and would like a refill with titration. If appropriate, please send script for Zepbound 5 mgs to their pharmacy. The patient does have a follow up in 11/06/2024 documented in this encounter Plan of Treatment Upcoming Encounters Date Type Department Care Team (Late st Contact Info) Description 09/17/2024 10:00 AM EDT Consult Adult Medicine [address] [phone] John Chavarria MD [address] [place] [phone] 10/04/2024 11:30 AM EDT Hospital Encounter [facility] OR [address] [place] [phone] Junior Mcdaniel MD [address] [address] 10/04/2024 11:30 AM EDT - 10/04/2024 1:00 PM EDT Surgery [facility] OR [address] [place] [phone] Junior Mcdaniel MD [address] [phone] LEFT KNEE ARTHROSCOPY [[id number] (CPT??)] 10/09/2024 9:00 AM EDT Evaluation [facility] [address] [phone] Karley Koenig, PT 10/17/2024 11:30 AM EDT Office Visit Orthopedic Surgery [facility] [address] [place] [phone] Jyoti Eaton PA [address] [facility] [address] [place] [address] 10/19/2024 4:30 PM EDT Office Visit Adult Medicine [facility] [address] [place] [phone] John Chavarria MD [address] [place] [phone] 11/06/2024 2:45 PM EDT Office Visit Bariatric Surgery - [place] [address] [facility] [address] [place] [phone] Faustina Miller MD 175 [facility] [address] [place] [address] 12/04/2024 4:00 PM EDT Office Visit Pulmonolgy - [place] [address] [place] [phone] Anat Moss NP 175 [facility] [address] [place] [address] Scheduled Procedures Name Priority Associated Diagnoses Date/Ti me ARTHROSCOPY KNEE Other tear of medial meniscus of left knee as current injury, initial encounter 10/04/2024 11:30 AM EDT documented as of this encounter Visit Diagnoses Not on filedocumented in this encounter Care Teams Gem Setter Relationship Specialty Start Date End Date John Chavarria MD [address] [place] [phone] PCP - General 06/05/04 documented as of this encounter
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
--- OUTSIDE RECORDS SUMMARY | 2024-09-05 18:49 | XMS_ITS | Encounter Summary ---
Author Organization [facility] Address [address] [place] [address] Care Team Providers Care Pulmonary Function Technician Name Role Phone John Chavarria MD Primary Care Provider [phone] Reason for Visit * Reason Onset Date Comments Fitting for DME 07/19/2024 Encounter Details Date Type Department Care Team (Late st Contact Info) Description 07/19/2024 Telephone Adult Medicine [address] [phone] Snow Murphy, RN Fitting for DME Social History Tobacco Use Types Packs/Day Years [...] as of this encounter Progress Notes * Katherine Patel LPN - 07/19/2024 12:51 PM EST If pt is having surgery and needs a walker with seat and hand brakes she can discuss this with the provider that is doing her surgery As for a scooter she would need to have appt to discuss the need for this with her provider and a referral would need to be sent to pt /keith for eval for the scooter For the hospital bed would need discussion and documentation for the need for the hospital bed for insurance So she would need appt to discuss the need for scooter and hospital bed She did have appt with Dr Chavarria on 07/12/[address] Chavarria to see if okay for 1) walker with seat and hand brakes ,would need documentation for the need 2) ? Does she need a hospital bed Would need documentation for the need for this 3) mathews you feel she needs scooter would need referral to keith pt for eval WOULD NEED NOTES WITH THIS DOCUMENTATION Thank you Katherine READ * Snow Murphy RN - 07/19/2024 12:14 PM EST Parker Chavarria So I did see orthopedic on Tuesday I will be having knee surgery my ? I have is due to my fibromyalgia arthritis and asthma and constant body pain when I go out I use store scooters I was wondering ifpossible I can have a prescription for a walker that has a seat / bench for when I need to sit doneand help my medical issues and back and would be a great help with knee issues also someone came to my home stated they was from [employer] and was gonna summit a request for medical supplies was wondering if the office had received anything yet it???s been maybe like two months she stated I can get a hospital bed with remote to help me get in out bed and elevate my swollen feet and help breathing a request to have my own scooter due to not enough to go around in stores at times if these itemscan be prescribed it will be greatly appreciated especially the seated walker with bench before my upcoming surgery Thank u documented in this encounter Plan of Treatment Upcoming Encounters Date Type Department Care Team (Late st Contact Info) Description 09/17/2024 10:00 AM EDT Consult Adult Medicine [address] [address] John Chavarria MD [address] [place] [address] 10/04/2024 11:30 AM EDT Hospital Encounter [facility] Main OR [address] [place] [phone] Junior Mcdaniel MD [address] [address] 10/04/2024 11:30 AM EDT - 10/04/2024 1:00 PM EDT Surgery [facility] Main OR [address] [place] [phone] Junior Mcdaniel MD [address] [address] LEFT KNEE ARTHROSCOPY [[id number] (CPT??)] 10/09/2024 9:00 AM EDT Evaluation [facility] 175 [facility] 350 [place] [phone] Karley Koenig, PT 10/17/2024 11:30 AM EDT Office Visit Orthopedic Surgery [facility] [address] [phone] Jyoti Eaton PA [address] [address] 10/19/2024 4:30 PM EDT Office Visit Adult Medicine [address] [address] John Chavarria MD [address] [place] [address] 11/06/2024 2:45 PM EDT Office Visit Bariatric Surgery - [place] [address] [phone] Faustina Miller MD [address] [address] 12/04/2024 4:00 PM EDT Office Visit [facility] [address] [place] [phone] Anat Moss NP [address] [place] [address] Scheduled Procedures Name Priority Associated Diagnoses Date/Ti me ARTHROSCOPY KNEE Other tear of medial meniscus of left knee as current injury, initial encounter 10/04/2024 11:30 AM EDT documented as of this encounter Visit Diagnoses Not on filedocumented in this encounter Care Teams Pulmonary Function Technician Relationship Specialty Start Date End Date John Chavarria MD [address] [place] [address] PCP - General 06/05/04 documented as of this encounter
--- OUTSIDE RECORDS SUMMARY | 2024-09-05 18:49 | XMS_ITS | Encounter Summary ---
Author Organization [facility] Address [address] [place] [address] Care Team Providers Care Supervisor Color Making Name Role Phone John Chavarria MD Primary Care Provider [phone] Reason for Visit * Reason Onset Date Comments Fitting for DME 08/03/2024 Appointment 08/03/2024 Encounter Details Date Type Department Care Team (Late st Contact Info) Description 08/03/2024 Telephone Adult Medicine [address] [phone] John Chavarria MD [address] [place] [phone] Fitting for DME; Appointment Social History Tobacco Use Types Packs/Day Years [...] Progress Notes * Katherine Patel LPN - 08/21/2024 8:04 AM EST Rx signed and faxed to Ramin @ [phone] * Katherine Patel LPN - 08/16/2024 2:12 PM EST Spoke to pt and she states someone from [employer] went to her home and told her she can get all these DME items below Explained to her that the power scooter will need appt to discuss need and then a referral to PT/Otfor eval for power scooter,she does have appt 09/17/[address] Chavarria As for the hospital bed she would go from a full size bed to a twin size hospital bed ,she does notwant to do that ,suggested a wedge pillow ,she will try that Shower chair ,she needs a small shower chair would like one with arms and back explained that the width of this is 18.5 in She would like a smaller width, might need to go to a shower stool instead ,that does not have a back or arms ,she is okay with that if it is smaller in width I will call Ramin to see She is also requesting a walker with seat and handbrakes due to her knee problems Shower stool is smaller Will order the shower stool for her Wedge pillow,and walker with seat and handbrakes To Dr Chavarria to sign * Ronit Ivory - 08/15/2024 12:24 PM EST Patient is aware that Katherine is off today, ok to wait Patient returning phone call to Katherine. She can be reached at [phone] * Leah Lizama MA - 08/10/2024 1:44 PM EST Pt is returning your call * Rafia Friedman - 08/09/2024 3:39 PM EST Patient is returning call. Please advise * Katherine Patel LPN - 08/09/2024 1:52 PM EST Will need referral to PT/OT for eval for power chair Need notes for hospital bed She saw Dr Chavarria 07/12/2024 no documentation for need for hospital bed Can do rx for the shower chair Called pt to see why she is requesting the hospital bed and power wheelchair Left message on voice mail to call me back Also to see if she needs transfer bench or shower chair * Bin Cruz - 08/03/2024 10:29 AM EST DME REQUEST Name of Product: shower chair, mechanical bed, power wheelchair Specific information about product no specifics # Needed 1 Reason patient is asking for this supply? Patient has Bone loss and osteoporosis bone disease hard to walk and stand Have you received this supply before? If yes , when?: No Have you discussed the need for this supply with a provider at a recent visit? If yes, with who andwhen? No When completed: Mailed to their home at: [address] [place] [phone] Have you told the patient it will take 7-10 days for completion of this request? Yes documented in this encounter Plan of Treatment Upcoming Encounters Date Type Department Care Team (Late st Contact Info) Description 09/17/2024 10:00 AM EDT Consult Adult Medicine [address] [address] John Chavarria MD [address] [place] [address] 10/04/2024 11:30 AM EDT Hospital Encounter [facility] Main OR [address] [place] [phone] Junior Mcdaniel MD [address] [address] 10/04/2024 11:30 AM EDT - 10/04/2024 1:00 PM EDT Surgery [facility] Main OR [address] [place] [phone] Junior Mcdaniel MD 175 [facility] 160 [place] [address] LEFT KNEE ARTHROSCOPY [[id number] (CPT??)] 10/09/2024 9:00 AM EDT Evaluation [facility] 175 [facility] 350 [place] [phone] Karley Koenig, PT 10/17/2024 11:30 AM EDT Office Visit Orthopedic Surgery [facility] 160 175 [facility] 160 [place] [phone] Jyoti Eaton PA 175 [facility] 160 [place] [address] 10/19/2024 4:30 PM EDT Office Visit Adult Medicine [address] [phone] John Chavarria MD [address] [place] [address] 11/06/2024 2:45 PM EDT Office Visit Bariatric Surgery [facility] 175 [facility] 120 [place] [phone] Faustina Miller MD 175 [facility] 120 [place] [address] 12/04/2024 4:00 PM EDT Office Visit Pulmonolgy - [place] 175 [facility] 200 [place] [phone] Anat Moss, JENNIFER 175 [facility] 200 [place], [place] [phone] Scheduled Procedures Name Priority Associated Diagnoses Date/Ti me ARTHROSCOPY KNEE Other tear of medial meniscus of left knee as current injury, initial encounter 10/04/2024 11:30 AM EDT documented as of this encounter Visit Diagnoses Diagnosis Tear of medial meniscus of left knee, current- Primary Obstructive sleep apnea- Primary Obstructive sleep apnea (adult) (pediatric) Tear of medial meniscus of right knee, unspecified tear type, unspecified whether old or current tear, subsequent encounter Lumbosacral spondylosis without myelopathy Primary localized osteoarthrosis of lower leg, unspecified laterality Polyarthropathy, 

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
--- OUTSIDE RECORDS SUMMARY | 2024-09-05 18:49 | XMS_ITS | Encounter Summary ---
Author Organization [facility] Address [address] [place] [address] Care Team Providers Care Field Sales Associate Name Role Phone John Chavarria MD Primary Care Provider [phone] Reason for Visit * Reason Onset Date Comments Medical Records 06/23/2023 Encounter Details Date Type Department Care Team (Late st Contact Info) Description 06/23/2023 Telephone [facility] Cardiology [facility] [address] [place] [address] John Chavarria MD [address] [place] [address] Medical Records Social History Tobacco Use Types Packs/Day Years Used Date Smoking Tobacco: Former Smokeless Tobacco: Never Alcohol Use Standard Drinks/Week Comments Never 0 (1 standard drink = 0.6 oz pur e alcohol) Comments Unknown Sex and Gender Information Value Date Recorded Sex Assigned at Not on file Legal Sex Female 1:47 AM EST Gender Identity Not on file Sexual Orientation Not on file documented as of this encounter Progress Notes * Janell Grigsby - 08/10/2024 3:28 PM EST Faxed record request from [facility]. Rehab. Dis. Det. To Share Care Copying Service at [phone] on 06/29/2023 to process complete records documented in this encounter Plan of Treatment Upcoming Encounters Date Type Department Care Team (Late st Contact Info) Description 09/17/2024 10:00 AM EDT Consult Adult Medicine [address] [phone] John Chavarria MD [address] [place] [address] 10/04/2024 11:30 AM EDT Hospital Encounter [facility] Main OR [address] [place] [phone] Junior Mcdaniel MD [address] [address] 10/04/2024 11:30 AM EDT - 10/04/2024 1:00 PM EDT Surgery [facility] Main OR [address] [place] [phone] Junior Mcdaniel MD [address] [address] LEFT KNEE ARTHROSCOPY [[id number] (CPT??)] 10/09/2024 9:00 AM EDT Evaluation [facility] [address] [phone] Karley Koenig, PT 10/17/2024 11:30 AM EDT Office Visit Orthopedic Surgery - [place] [address] [phone] Jyoti Eaton PA [address] [address] 10/19/2024 4:30 PM EDT Office Visit Adult Medicine [address] [phone] John Chavarria MD [address] [place] [address] [place] [address] 11/06/2024 2:45 PM EDT Office Visit Bariatric Surgery - [place] [address] [place] [address] Faustina Miller MD [address] [place] [address] 12/04/2024 4:00 PM EDT Office Visit Pulmonolgy - [place] [address] [place] [phone] Anat Moss NP [address] [place] [address] Scheduled Procedures Name Priority Associated Diagnoses Date/Ti me ARTHROSCOPY KNEE Other tear of medial meniscus of left knee as current injury, initial encounter 10/04/2024 11:30 AM EDT documented as of this encounter Visit Diagnoses Not on filedocumented in this encounter Care Teams Field Sales Associate Relationship Specialty Start Date End Date John Chavarria MD [address] [place] [address] PCP - General 06/05/04 documented as of this encounter
--- OUTSIDE RECORDS SUMMARY | 2024-09-05 18:49 | XMS_ITS | Data Portability ---
Author Organization [facility], [address] Address [address] [place] [address] Care Team Providers Care Seed Sorter Name Role Phone [facility] Prim penrose Care Provider Assessment No assessment recorded. Plan of Treatment Reminders Order Date Submit Date Provider Last Modified By Organization Details Last Modified Time Details Appointments None recorded. Lab SARS CoV 2 (COVID-19) Ag, QL, IA, upper respiratory specimen 2023 024 [email or web address] [facility] [address], [address] [place], [address], 4 12:28:13 rapid flu (A+B) 2023 024 [email or web address] [facility] [address], [address] [place], [address], 4 12:28:15 Referral emergency medicine referral - pain and swelling left lower leg x 1 day. now getting circumferen tial redness. Need to rule out DVT. 2022 023 [email or web address] [facility], [address] [place], [address], 3 14:50:22 Procedures None recorded. Surgeries None recorded. Imaging None recorded. Medication Orders amoxicillin 875 mg-potassiu m clavulanate 125 mg tablet 2023 024 [facility]/Pharmacy #[id number], [address] [place] [address], [address], 4 12:28:47 Allergy Relief (fluticason e) 50 mcg/actuati on nasal spray,suspe nsion 2023 024 [facility]/Pharmacy #[id number], [address] [place] [address], [place], [address], 4 12:28:46 cephalexin 500 mg capsule [email or web address], [address], 12:10:53 Patient TargetsNo targets recorded. Patient Instructions Encounter Date Encounter Id Patient Instructions Last Modified By Organization Details Last Modified Time 12/10/2022 [id number] cellulitis: care instructions [email or web address] Not available 12/10/2022 14:44:24 skin abscess: ca re instructions [email or web address] Not available 12/10/2022 14:44:24 Go to the Emergency Department immediately if your symptoms worsen or if you develop new symptoms that concern you. Follow up with a PCP within the next 5-10 days Failure to follow up as recommended may result in adverse health consequences. Take medication as directed with food. [facility] if no improvement. Apply warm compresses to the area. If swelling, redness and pain increases go to the nearest ER for further evaluation and possibily rule out DVT. Not available 12/10/2022 14:44:23 Cellulitis is a skin infection caused by bacteria, most often strep or staph. It often occurs after a break in the skin from a scrape, cut, bite, or puncture, or after a rash. Cellulitis may be treated without doing tests to find out what caused it. But your doctor may do tests, if needed, to look for a specific bacteria, like methicillin-resist ant Staphylococcus aureus (MRSA). The doctor has checked you carefully, but problems can develop later. If you notice any problems or new symptoms, get medical treatment right away. How can you care for yourself at home? Take your antibiotics as directed. Do not stop taking them just because you feel better. You need to take the full course of antibiotics. Prop up the infected area on pillows to reduce pain and swelling. Try to keep the area above the level of your heart as often as you can. If your doctor told you how to care for your infection, follow your doctor's instructions. If you did not get instructions, follow this general advice: Wash the area with clean water 2 times a day. Don't use hydrogen peroxide or alcohol, which can slow healing. You may cover the area with a thin layer of petroleum jelly, such as Vaseline, and a non-stick bandage. Apply more petroleum jelly and replace the bandage as needed. Be safe with medicines. Take pain medicines exactly as directed. If the doctor gave you a prescription medicine for pain, take it as prescribed. If you are not taking a prescription pain medicine, ask your doctor if you can take an [id number] medicine. Not available 12/10/2022 14:44:17 08/06/2023 [id number] If you test positive for COVID-19, stay home for at least 5 days and isolate from others in your home. You are likely most infectious during these first 5 days. Wear a high-quality mask if you must be around others at home and in public. Do not go places where you are unable to wear a mask. For travel guidance, see [facility]? s Travel webpage. Do not travel. Stay home and separate from others as much as possible. Use a separate bathroom, if possible. Take steps to improve ventilation at home, if possible. Don? t share personal household items, like cups, towels, and utensils. Monitor your symptoms. If you have an emergency warning sign (like trouble breathing), seek emergency medical care immediately. If you had symptoms and: Your symptoms are improving You may end isolation after day 5 if: You are fever-free for 24 hours (without the use of fever-reducing medication). Your symptoms are not improving Continue to isolate until: You are fever-free for 24 hours (without the use of fever-reducing medication). Your symptoms are improving. Regardless of when you end isolation Until at least day 11: Avoid being around people who are more likely to get very sick from COVID-19. Remember to wear a high-quality mask when indoors around others at home and in public. Do not go places where you are unable to wear a mask until you are able to discontinue masking (see below). For travel guidance, see [facility]? s Travel webpage. Not available 08/06/2023 12:27:35 Reason for Referral Emergency Medicine Referral for Deep venous thrombosis of lower extremity pain and swelling left lower leg x 1 day. now getting circumferential redness. Need to rule out DVT. pain and swelling left lower leg x 1 day. now getting circumferential redness. Need to rule out DVT. Referring Physician: Alton Cordova, Urgent Care, Encounter Date: 12/10/2022 Results Created Date Observation Date Name Description Value Unit Range Abnormal Flag Note LastModifiedBy Organization Detail LastModifiedTime 08/06/19 24 08/06/2023 rapid flu (A+B) Unknown Analyte negati ve Not Available [address] [facility] [place], [address], 08/06/2023 12:12:39 08/06/19 24 08/06/2023 rapid flu (A+B) Unknown Analyte negati ve Not Available [address] [place], [address], 08/06/2023 12:12:39 08/06/19 24 08/06/2023 rapid flu (A+B) Unknown Analyte yes Not Available [id number] [place] [address] [address] [place], [address], 08/06/2023 12:12:39 08/06/19 24 08/06/2023 SARS CoV 2 (COVI D-19) Ag, QL, IA, upper respi rator y speci men Unknown Analyte negati ve Not Available [address] [place], [address], 08/06/2023 12:12:54 08/06/19 24 08/06/2023 SARS CoV 2 (COVI D-19) Ag, QL, IA, upper respi rator y speci men Unknown Analyte yes Not Available [address] [place], [address], 08/06/2023 12:12:54 Result Notes None recorded. 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 Procedures Surgical History Date Name Laterality Status Provider Name and Address Organization Details Recorded Time 11/02/19 23 Carpal tunnel surgery completed DOROTA DEPINTO PA - [facility] 12/10/2022 13:56:22 07/04/19 20 total hysterectomy with removal of both tubes and ovaries completed DOROTA DEPINTO PA - [facility] 12/10/2022 13:59:09 07/04/19 15 cholecystectomy completed DOROTA DEPINTO PA - [facility] 12/10/2022 13:56:33 07/04/19 15 augmentation of bilateral breasts completed DOROTA DEPINTO PA - [facility] 12/10/2022 13:59:34 Imaging Results None recorded. Procedure Notes None recorded. Medical Equipment None Reported. Allergies No known drug allergies Medications Name Sig Start Date Stop Date Status Note LastModified by Organization Details LastModified Time furosemide 40 mg tablet TAKE 2 TABLETS BY MOUTH EVERY MORNING, AND TAKE ONE TABLET BY MOUTH AT NIGHT active Not Available Not Available No t Available albuterol sulfate 2.5 mg/3 mL (0.083 %) solution for nebulizatio n INHALE CONTENTS OF 1 AMPULE VIA NEBULIZER EVERY 4 HOURS NEEDED FOR WHEEZING active Not Available Not Available No t Available nystatin 100,000 unit/gram topical ointment APPLY LIBERALLY TO AFFECTED AREA EVERY NIGHT FOR 7 NIGHTS TO TREAT RASH active Not Available Not Available No t Available tizanidine 4 mg tablet TAKE 1 TABLET BY MOUTH EVERY 6 HOURS NEEDED FOR MUSCLE SPASM FOR UP TO 10 DAYS active Not Available Not Available No t Available valacyclovi r 1 gram tablet TAKE 1 TABLET BY MOUTH EVERY DAY active Not Available Not Available No t Available ondansetron HCl 4 mg tablet TAKE 1 TABLET BY MOUTH EVERY 8 HOURS NEEDED FOR NAUSEA active Not Available Not Available No t Available prednisone 20 mg tablet active Not Available Not Available Not Available isosorbide mononitrate ER 30 mg tablet,exte nded release 24 hr TAKE 1 TABLET BY MOUTH EVERY DAY active Not Available Not Available No t Available acyclovir 400 mg tablet TAKE 1 TABLET 2X/DAY *WITH OUTBREAK INCREASE TO 1 TAB 3X/ DAY FOR 5 DAYS,THEN RESUME TO 1 TAB 2X/DAY active Not Available Not Available No t Available valacyclovi r 500 mg tablet active Not Available Not Available Not Available aspirin 81 mg tablet,belinda yed release TAKE 1 TABLET BY MOUTH EVERY DAY active Not Available Not Available No t Available acetaminoph en 500 mg tablet TAKE 2 TABLETS BY MOUTH EVERY 6 TO 8 HOURS active Not Available Not Available No t Available oxycodone-a cetaminophe n 5 mg-325 mg tablet TAKE 1 TABLET BY MOUTH 4 TIMES A DAY active Not Available Not Available No t Available amitriptyli ne 25 mg tablet TAKE 1 TO 2 TABLETS BY MOUTH AT BEDTIME active Not Available Not Available No t Available magnesium oxide 400 mg (241.3 mg magnesium) tablet Take by oral route. active Not Available Not Available No t Available lorazepam 0.5 mg tablet TAKE 1 TABLET BY MOUTH EVERY DAY IN THE EVENING active Not Available Not Available No t Available metoclopram dane 5 mg tablet TAKE 1 TABLET BY MOUTH THREE TIMES A DAY BEFORE MEALS active Not Available Not Available No t Available methocarbam ol 750 mg tablet TAKE 1 TABLET BY MOUTH EVERY 6 HOURS NEEDED FOR SPASMS active Not Available Not Available No t Available ropinirole 0.25 mg tablet TAKE 1 TABLET BY MOUTH EVERY DAY IN THE EVENING active Not Available Not Available No t Available meclizine 25 mg tablet TAKE 2 TABLETS BY MOUTH TWICE A DAY NEEDED FOR DIZZINESS active Not Available Not Available No t Available baclofen 10 mg tablet TAKE 1 TABLET BY MOUTH TWO TIMES A DAY NEEDED FOR MUSCLE SPASM. DO NOT COMBINE WITH ALCOHOL, BENZOS, OPIODS. DO NOT DRIVE WHILE ON THIS MEDICATIO N active Not Available Not Available No t Available cephalexin 500 mg capsule TAKE 1 CAPSULE BY MOUTH EVERY 8 HOURS WITH MEALS UNTIL FINISHED 08/06 completed Not Available Not Available Not Available clotrimazol e-betametha sone 1 %-0.05 % topical cream active Not Available Not Available Not Available triamcinolo ne acetonide 55 mcg nasal spray aerosol TAKE 1 SPRAY IN EACH NOSTRIL TWO TIMES A DAY active Not Available Not Available No t Available zafirlukast 20 mg tablet TAKE 1 TABLET BY MOUTH TWO TIMES A DAY. active Not Available Not Available No t Available omeprazole 20 mg capsule,del ayed release TAKE 1 CAPSULE BY MOUTH EVERY DAY active Not Available Not Available No t Available nystatin 100,000 unit/gram topical powder APPLY TO AFFECTED AREA UP TO TWICE A DAY TO PREVENT RASH active Not Available Not Available No t Available lorazepam 1 mg tablet TAKE 1 TABLET BY MOUTH EVERY EVENING active Not Available Not Available No t Available ibuprofen 600 mg tablet TAKE 1 TABLET BY MOUTH EVERY 6 HOURS active Not Available Not Available No t Available ondansetron 4 mg disintegrat ing tablet Place 2 tablets twice a day by transling ual route. active Not Available Not Available No t Available amoxicillin 875 mg-potassiu m clavulanate 125 mg tablet Take 1 tablet every 12 hours by oral route with meal(s) for 10 days. 2023 active Not Available Not Available Not Avai lable Ventolin HFA 90 mcg/actuati on aerosol inhaler INHALE 2 PUFFS INTO THE LUNGS EVERY 4 HOURS NEEDED FOR COUGH/ WHEEZING OR SHORTNESS OF BREATH active Not Available Not Available No t Available rosuvastati n 5 mg tablet TAKE 1 TABLET BY MOUTH EVERY DAY active Not Available Not Available No t Available rosuvastati n 10 mg tablet Take 1 tablet every day by oral route. active Not Available Not Available No t Available lactulose 10 gram/15 mL oral solution TAKE 30 ML BY MOUTH 2 TIMES DAILY NEEDED FOR CONSTIPAT ION FOR UP TO 30 DAYS. active Not Available Not Available No t Available triamcinolo ne acetonide active Not Available Not Available No t Available oxycodone active Not Available Not Elisa ilable Not Available aspirin 81 mg active Not Available Not Avail able Not Available nystatin active Not Available Not Avai lable Not Available fluconazole active Not Available Not A vailable Not Available lorazepam active Not Available Not Elisa ilable Not Available albuterol sulfate active Not Available Not Available Not Available valacyclovi r active Not Available Not Available Not Available Vitamin D active Not Available Not Elisa ilable Not Available Advair Diskus active Not Available Not Available Not Available betamethaso ne dipropion (bulk) active Not Available Not Available Not Available Horizon Nasal Cpap System active Not Available Not Available Not Available Advair HFA 230 mcg-21 mcg/actuati on aerosol inhaler INHALE 2 PUFFS INTO THE LUNGS TWO TIMES A DAY. RINSE MOUTH AFTER EVERY USE active Not Available Not Available No t Available levocetiriz ine 5 mg tablet TAKE 1 TABLET BY MOUTH EVERY EVENING active Not Available Not Available No t Available diclofenac 1 % topical gel APPLY 1 GRAM TOPICALLY TO THE AFFECTED AREA 3 TIMES A DAY NEEDED FOR PAIN active Not Available Not Available No t Available Spiriva Respimat 1.25 mcg/actuati on solution for inhalation INHALE 2 PUFFS BY MOUTH DAILY. MAINTENAN CE INHALER DAILY active Not Available Not Available No t Available Allergy Relief (fluticason e) 50 mcg/actuati on nasal spray,suspe nsion [place] 1 spray every day by intranasa l route as directed for 90 days. 2023 active Not Available Not Available Not Avai lable Vitals Date Recorded Body height Body mass index (BMI) Body weight Pain severity - 0-10 verbal numeric rating [Score] - Reported Body temperature Respiratory rate Oxygen saturation Oxygen saturation in Arterial blood by Pulse oximetry Heart rate Systolic blood pressure Diastolic blood pressure Provider Name and Address Organization Details Last Updated DateTime 3 149.86 cm 44.4 kg/m2 31239.3 2 g 10 98 [degF] 18 /min 97 % 97 % 76 /min 102 mm[Hg] 63 mm[Hg] DOROTA LAW PA - [facility] 3 14:01:35 Date Recorded Body height Body mass index (BMI) Body weight Pain severity - 0-10 verbal numeric rating [Score] - Reported Respiratory rate Body temperature Oxygen saturation Oxygen saturation in Arterial blood by Pulse oximetry Heart rate Systolic blood pressure Diastolic blood pressure Provider Name and Address Organization Details Last Updated DateTime 4 149.86 cm 44.4 kg/m2 68631.3 2 g 10 18 /min 97.8 [degF] 99 % 99 % 88 /min 138 mm[Hg] 75 mm[Hg] ALONDRA JACOBSON PA - [facility] 4 12:14:56 Social History Question Answer Notes LastModified by Organizat ion Details LastModified Time Tobacco Smoking Status Never Smoker DOROTA bourne PA - [facility] 12/10/2022 13:56:03 What Is Your Level Of Alcohol Consumption? None Information not available 12/10/2022 Do You Use Any Illicit Or Recreational Drugs? No Information not available 12/10/2022 Have You Recently Traveled Abroad? No Information not available 12/10/2022 Do You Or Have You Ever Used Any Other Forms Of Tobacco Or Nicotine? No Information not available 12/10/2022 Sex: Unknown Functional Status None recorded. Mental Status None recorded. Family History Relationship Description Onset Age of this Age Resolved Age Notes LastModified by Organization Details LastModified Time Father No current problems or disability Not available 12/10 13:55:25 Mother No current problems or disability Not available 12/10 13:55:25 Medical History No medical history recorded. Gynecological History Statement/Question Response Date of LMP Is there any chance of ? No LMP Definite Obstetrics History GPAL:G 0 P 0 0 0 0 Immunizations Vaccine Type Date Status Note Provider Nam e and Address Organization Details Recorded Time Influenza, MDCK, quadrivalent, PF 9 completed DOROTA DEPINTO null, PA - [facility] 12/10/2022 13:45:50 Influenza, MDCK, quadrivalent, PF 2 completed DOROTA DEPINTO null, PA - [facility] 12/10/2022 13:45:50 Influenza, MDCK, quadrivalent, preservative 1 completed DOROTA DEPINTO null, PA - [facility] 12/10/2022 13:45:50 COVID-19, mRNA, LNP-S, PF, 30 mcg/0.3 mL dose 1 completed DOROTA DEPINTO null, PA - [facility] 12/10/2022 13:45:50 COVID-19, mRNA, LNP-S, PF, 30 mcg/0.3 mL dose 0 completed DOROTA DEPINTO null, PA - [facility] 12/10/2022 13:45:50 pneumococcal polysaccharide PPV23 4 completed DOROTA DEPINTO null, PA - [facility] 12/10/2022 13:45:50 Tdap 9 completed DOROTA DEPINTO null, PA - [facility] 12/10/2022 13:45:50 Influenza, split virus, trivalent, preservative 5 completed DOROTA DEPINTO null, PA - [facility] 12/10/2022 13:45:50 Influenza, split virus, trivalent, preservative 4 completed DOROTA DEPINTO null, PA - [facility] 12/10/2022 13:45:50 Td (adult), 2 Lf tetanus toxoid, preservative free, adsorbed 9 completed DOROTA DEPINTO null, PA - [facility] 12/10/2022 13:45:50 Hep B, adult 4 completed DOROTA DEPINTO null, PA - [facility] 12/10/2022 13:45:50 Hep B, adult 4 completed DOROTA DEPINTO null, PA - [facility] 12/10/2022 13:45:50 Influenza, split virus, quadrivalent, PF 1 completed DOROTA DEPINTO null, PA - [facility] 12/10/2022 13:45:50 Past Encounters Encounter ID Performer Location Encounter Start Date Encounter Closed Date Diagnosis/Indication Diagnosis SNOMED-CT Code Diagnosis ICD10 Code Diagnosis Note [id number] [place] [address] [facility] [address] [facility] [place] [address] 12/10/2022 13:14:55 12/10/2022 14:50:22 Cellulitis of left lower limb 5433720801 2935201 L03.116 Deep venou s thrombosis of lower extremity 619292605 I82.409 [id number] [place] [address] [facility] [address] [place] [place] [address] 08/06/2023 12:00:15 08/06/2023 12:29:15 Acute sinusitis 92076557 J01.90 Sinusitis is an infection of the lining of the sinus cavities in your head. Sinusitis often follows a cold. It causes pain and pressure in your head and face. In most cases, sinusitis gets better on its own in 1 to 2 weeks. But some mild symptoms may last for several weeks. Sometimes antibiotic s are needed. if you are having problems. It's also a good idea to know your test results and keep a list of the medicines you take. How can you care for yourself at home? Take an over-the-c ounter pain medicine. Avoid Ibuprofen, Aleve and Aspirin if . If the doctor prescribed antibiotic s, take them as directed. Do not stop taking them just because you feel better. You need to take the full course of antibiotic s. Be careful when taking over-the-c ounter cold or influenza (flu) medicines and Tylenol at the same time. Many of these medicines have acetaminop hen, which is Tylenol. Read the labels to make sure that you are not taking more than the recommende d dose. Too much acetaminop hen (Tylenol) can be harmful. Breathe warm, moist air from a steamy shower, a hot bath, or a sink filled with hot water. Avoid cold, dry air. Using a humidifier in your home may help. Follow the directions for cleaning the machine. Use saline (saltwater ) nasal washes. This can help keep your nasal passages open and wash out mucus and bacteria. You can buy saline nose drops at a grocery store or drugstore. Or you can make your own at home by adding 1 teaspoon (5 millilitre s) of salt and 1 teaspoon (5 millilitre s) of baking soda to 2 cups (500 mL) of distilled water. If you make your own, fill a bulb syringe with the solution, insert the tip into your nostril, and squeeze gently. Blow your nose. Put a hot, wet towel or a warm gel pack on your face 3 or 4 times a day for 5 to 10 minutes each time. Try a decongesta nt nasal spray like oxymetazol ine (Drixoral) . Do not use it for more than 3 days in a row. Using it for more than 3 days can make your congestion worse. Exposure t o SARS-CoV-2 264866067 Z20.822 Health Concerns Section Related Observation LastModified by Organization [facility]eche [facility]edo LastModified Time None Recorded Concern Status LastModified by Organization Details LastModified Time None Recorded Advance Directives Directive None Recorded Payers Encounter Date Sequence Insurance Name Policy Number Policy Ca Covered Member ID Ca Member ID Guarantor Name 12/10/2022 1 [facility] (MEDICAID REPLACEMENT - HMO) CINDY Branch [id number] Luz Branch 08/06/2023 1 [facility] (MEDICAID REPLACEMENT - HMO) CINDY Branch [id number] Luz Branch Notes Date Note Type Note Provider Name and Address Organization Details Recorded Time 12/10/2022 text/html Skin Redness UCReported bypatient.Location: left legs Quality:painful;kenzie thematous;warm; swollen bilateral leg , left more then right , lower leg edema . left leg cellulitis , Eufemia sign positive , left calf tenderness. Severity:worsening; constant Duration:2 days Onset:sudden onset Alleviating factors:nothing gives relief Aggravating factors:nothing makes it worse Symptoms:no fever; no nausea; no vomiting;swelling Alton Cordova NP [address] [place], [address], [facility] 12/10/2022 14:47:39 08/06/2023 text/html Sinus Complaints UCReported bypatient.Location: sinus pain;facial pain;sinus pressure Associated Symptoms:no fever; no nausea or vomiting; no sore throat; no ear fullness; no nasal itching; no eye itching; no dizziness;difficult y breathing;Post nasal drip;nasal passage blockage;cough Onset/Timing:worse in am; worse in pm; initially started 2weeks ago Quality:minimal discomfort;worsenin g; clear Duration:frequent Severity:moderate Context:no recent upper respiratory infection; no recent sick contacts; not worse with seasonal allergen exposure;worse with environmental exposure Risk Factors:no current smoking or tobacco use; no history of nasal trauma Alleviating factors:oral steroids Aggravating factors:worse during an upper respiratory infection (a cold); worse with excess fatigue Prior Treatmentoral decongestant Alton Cordova NP [address] [facility] [place], [address], [facility] 08/06/2023 12:29:35 OBGyn Episode No OBEpisode recorded.
--- OUTSIDE RECORDS SUMMARY | 2024-09-05 18:49 | XMS_ITS | Clinical Summary ---
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 0 Active oxyCODONE-acetamin ophen (PERCOCET) 5-325 MG per tablet Take 1 tablet by mouth every 4 (four) hours as needed for pain. 0 Active LORazepam (ATIVAN) 0.5 MG tablet Take 0.5 mg by mouth every evening. 0 Active potassium chloride ER (K-DUR,KLOR-CON) tablet 20 mEq Take 30 mEq by mouth daily. 0 Active furosemide (LASIX) 20 MG tablet Take 20 mg by mouth 2 (two) times a day. 0 Active betamethasone, augmented, (DIPROLENE) 0.05 % cream Apply 1 application topically 2 (two) times a day. 0 Active ondansetron (ZOFRAN) 4 MG tablet Take 4 mg by mouth every 8 (eight) hours as needed for nausea. 0 Active tiZANidine (ZANAFLEX) 4 MG tablet Take 4 mg by mouth every 8 (eight) hours as needed. 0 Active DULoxetine (CYMBALTA) DR capsule 60 mg Take 60 mg by mouth daily. 0 Active Triamcinolone Acetonide 55 MCG/ACT AERO spray or apply 55 mcg inside Nose daily. 0 Active loratadine (CLARITIN) 10 MG tablet Take 10 mg by mouth daily. 0 Active estradiol (ESTRACE) 0.5 MG tablet Take 0.5 mg by mouth. 0 Active albuterol (PROVENTIL) (2.5 MG/3ML) 0.083% nebulizer solution Take 2.5 mg by nebulization every 4 (four) hours as needed for wheezing. 0 Active fluticasone (FLONASE) 50 MCG/ACT nasal spray spray/apply 2 sprays in each nostril daily. 0 Active cetirizine (ZyrTEC) 10 MG tablet Take 10 mg by mouth daily. 0 Active acetaminophen (TYLENOL) 650 MG CR tablet Take 650 mg by mouth every 8 (eight) hours as needed for pain. 0 Active albuterol 108 (90 Base) MCG/ACT inhaler Inhale 2 puffs into the lungs 4 (four) times a day. 0 Active Fluticasone Furoate-Vilanterol 200-25 MCG/INH AEPB Inhale 1 puff into the lungs daily. 0 Active ketoconazole (NIZORAL) 2 % cream Apply 1 application topically daily. 0 Active montelukast (SINGULAIR) 10 MG tablet Take 10 mg by mouth every night at bedtime. 0 Active Azelastine-Flutica sone 137-50 MCG/ACT SUSP spray or apply 1 spray inside Nose daily. 0 Active meclizine (ANTIVERT) 25 MG tablet Take 1 tablet (25 mg total) by mouth 3 (three) times a day as needed. 0 Active rosuvastatin (CRESTOR) tablet 5 mg Take 1 tablet (5 mg total) by mouth daily. 0 Active isosorbide dinitrate (ISORDIL) 30 MG tablet Take 1 tablet (30 mg total) by mouth 4 (four) times a day. 0 Active metoclopramide (REGLAN) tablet 5 mg Take 1 tablet (5 mg total) by mouth 4 (four) times a day. 0 Active amitriptyline (ELAVIL) tablet 25 mg Take 1 tablet (25 mg total) by mouth every night at bedtime. 0 Active Cholecalciferol 25 MCG (1000 UT) tablet Take 1,000 Units by mouth daily. 60 tablet 0 06/11/2022 Active Active Problems Problem Noted Date Diagnosed Date Erythrocytosis 2021 Overview: Follows with hematology () Obstructive sleep apnea 01/18/2017 Overview: 02/02/2018 to 03/03/2018. CPAP@ 8-16/Average 12.4/Max 13.2. 20% compliant with using the machine for >4 hours/day. Average use is 1 hours a night with AHI 0.9. 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 Lumbosacral spondylosis without myelopathy 10/17 Asthma 05/31/2006 Anxiety state 09/21/2005 Family History Medical History Relation Name Comments Cancer Maternal Grandmother Relation Name Status Comments Maternal Grandmother Social History Tobacco Use Types Packs/Day Years Used Date Smoking Tobacco: Former Smokeless Tobacco: Never Alcohol Use Standard Drinks/Week Comments Never 0 (1 standard drink = 0.6 oz pur e alcohol) Sex and Gender Information Value Date Recorded Sex Assigned at Not on file Gender Identity Not on file Sexual Orientation Not on file Job Start Date Occupation Industry Not on file Not on file Not on file Last Filed Vital Signs Vital Sign Reading Time Taken Comments Blood Pressure 119/47 07/15/2023 10:39 AM EST Pulse 73 07/15/2023 10:39 AM EST Temperature 36.7 ??C (98 ??F) 07/15/2023 10:39 AM EST Respiratory Rate - - Oxygen Saturation 98% 07/15/2023 10:39 AM EST Inhaled Oxygen Concentration - - Weight 100.2 kg (221 lb) 09/17/2022 9:44 AM EDT Height 152.4 cm (5') 07/15/2023 10:39 AM EST Body Mass Index 43.16 09/17/2022 9:44 AM EDT Plan of Treatment Health Maintenance Due Date Last Done Comments Hepatitis C Screening 1974 Depression Screening 1986 BMI Counseling 01/14/1992 Preventative Health Evaluation 01/14/1992 Cervical Cancer Screening (Pap Smear) 1995 Hepatitis B Vaccines (3 of 3 - 19+ 3-dose series) 07/31/2004 06/05/2004, 12/04/2003 DTap / Tdap / Td (2 - Td or Tdap) 10/11/2018 10/11/2008 Colon Cancer Screening (Colonoscopy) 2019 Breast Cancer Screening (Mammogram) 01/14/2024 Shingrix-Zoster Vaccine (1 of 2) 01/14/2024 COVID-19 Vaccine (3 season) 2024 07/09/2020, 06/18/2020 Influenza Vaccine (#1) 2024 2, 09/13/2018, 04/02/2015, Additional history exists Pneumococcal Vaccine Aged Out 05/21/2014 No long er eligible based on patient's age to complete this topic RSV Ped < 20 months Aged Out No longe r eligible based on patient's age to complete this topic Care Teams Peeler Operator Relationship Specialty Start Date End Date John Chavarria MD PCP - General Internal Medicine 01/09/21
--- OUTSIDE RECORDS SUMMARY | 2024-09-05 18:49 | XMS_ITS | Clinical Summary ---
Author Organization [facility] [address] [place] [address] [place] [address] Phone Care Team Providers Care Sea Kayaking Guide Name Role Phone John Chavarria MD Primary Care Provider [phone] Allergies Active Allergy Reactions Criticality Noted Date Comments Other Runny nose 10/17/2009 Seasonal Allergies Medications albuterol 2.5 mg /3 mL (0.083 %) nebulizer solution Take 1 Vial by nebulization every 4 hours as needed for Wheezing. 12/01/19 23 Active albuterol HFA (PROAIR HFA ; PROVENTIL HFA ; VENTOLIN HFA) 90 mcg/actuation inhaler Inhale 2 Puffs into the lungs every 4 hours as needed for Cough, Wheezing or Shortness of Breath. 01/07/20 23 Active cholecalciferol (VITAMIN D-3) 50 mcg (2,000 unit) tablet Take 1 Tablet by mouth daily. 10/18/19 24 Active clotrimazole-be tamethasone (LOTRISONE) 1-0.05 % cream Apply sparingly to external affected area 2 times daily for 7-10 days. 11/07/19 24 Active NON FORMULARY CPAP HISTORICAL (HISTORICAL CPAP) Inhale 13-20 cm into the lungs at bedtime. SMS for DME 10/03/19 23 Active diclofenac (VOLTAREN) 75 mg EC tablet TAKE 1 TABLET BY MOUTH TWICE A DAY 12/09/19 24 Active diclofenac (VOLTAREN) 1 % topical gel Apply 1 g topically 3 times daily as needed (pain). 03/31/20 23 Active fluticasone propionate (FLONASE) 50 mcg/actuation nasal spray INHALE 1 SPRAY EVERY DAY BY INTRANASAL ROUTE DIRECTED FOR 90 DAYS. 08/06/19 24 Active fluticasone-ume clidinium-vilan terol (Trelegy Ellipta) 100-62.5-25 mcg inhaler Inhale 1 Puff into the lungs daily. 08/23/19 24 Active furosemide (LASIX) 40 mg tablet TAKE 2 TABLETS BY MOUTH EVERY MORNING, AND TAKE ONE TABLET BY MOUTH AT NIGHT 03/19/20 24 Active meclizine (ANTIVERT) 25 mg tablet Take 2 Tablets by mouth 2 times daily as needed for Other (dizziness). 06/23/20 23 Active rosuvastatin (CRESTOR) 5 mg tablet Take 1 Tablet by mouth daily. 04/15/20 23 Active simethicone (MYLICON) 80 mg chewable tablet Take 1 Tablet by mouth every 6 hours as needed for Flatulence. 01/03/20 24 Active ixekizumab (Taltz Autoinjector, 3 Pack,) 80 mg/mL injection every 28 (twenty-eight) days. 03/01/20 24 Active isosorbide mononitrate (IMDUR) 30 mg 24 hr tablet TAKE 1 TABLET BY MOUTH EVERY DAY 90 tablet 1 05/23/20 24 Active DULoxetine (CYMBALTA) [address] capsule Take 1 capsule (60 mg total) by mouth 1 (one) time each day. Active Breo Ellipta 100-25 mcg/dose inhaler Inhale 1 puff by mouth 1 (one) time each day. 11/20/19 24 Active levocetirizine (XYZAL) 5 mg tablet Take 1 tablet (5 mg total) by mouth 1 (one) time each day in the evening. 01/07/20 23 Active metoclopramide (REGLAN) 5 mg tablet Take 1 tablet (5 mg total) by mouth 3 (three) times a day before meals. Active valACYclovir (VALTREX) 1 gram tablet Take 1 tablet (1,000 mg total) by mouth 1 (one) time each day. 02/21/20 24 Active zafirlukast (ACCOLATE) 20 mg tablet Take 1 tablet (20 mg total) by mouth 2 (two) times a day. 01/07/20 23 Active amitriptyline (ELAVIL) 25 mg tablet Take 1-2 tablets (25-50 mg total) by mouth at bedtime. 180 tablet 1 07/12/19 25 Active omeprazole (PriLOSEC) [address] capsule Take 1 capsule (20 mg total) by mouth 1 (one) time each day. 90 each 1 07/12/19 25 026 Active rOPINIRole (REQUIP) 0.25 mg tabletIndicatio ns:restless leg syndrome Take 1 tablet (0.25 mg total) by mouth 1 (one) time each day in the evening. 90 each 1 07/12/19 25 Active ondansetron (ZOFRAN) 4 mg tablet Take 1 tablet (4 mg total) by mouth every 8 (eight) hours if needed for nausea. for nausea 20 tablet 1 07/12/19 25 Active ferrous sulfate 325 mg (65 mg elemental iron) tablet Take 1 tablet (325 mg total) by mouth 1 (one) time each day. 90 each 1 07/12/19 25 026 Active aspirin 81 mg EC tablet TAKE 1 TABLET BY MOUTH EVERY DAY 90 tablet 2 07/16/19 25 Active oxyCODONE-aceta minophen (PERCOCET) 5-325 mg per tablet Take 1 tablet by mouth 4 (four) times a day. Max Daily Amount: 4 tablets 112 tablet 08/17/19 25 Active LORazepam (ATIVAN) 1 mg tablet Take 1 tablet (1 mg total) by mouth at bedtime as needed for anxiety. Max Daily Amount: 1 mg 28 tablet 08/17/19 25 Active tirzepatide, weight loss, (Zepbound) 5 mg/0.5 mL injectionIndica tions:Class 2 obesity due to excess calories with body mass index (BMI) of 39.0 to 39.9 in adult, unspecified whether serious comorbidity present Inject 0.5 mL (5 mg total) under the skin every 7 (seven) days. 2 mL 08/24/19 25 025 Active LORazepam (ATIVAN) 1 mg tablet Take 1 tablet (1 mg total) by mouth at bedtime as needed for anxiety. Max Daily Amount: 1 mg 28 tablet 06/22/20 24 025 Discontinu ed(Reorder ) oxyCODONE-aceta minophen (PERCOCET) 5-325 mg per tablet Take 1 tablet by mouth 4 (four) times a day. Max Daily Amount: 4 tablets 112 tablet 07/20/19 25 025 Discontinu ed(Reorder ) tirzepatide, weight loss, (Zepbound) 2.5 mg/0.5 mL injectionIndica tions:Class 2 obesity due to excess calories with body mass index (BMI) of 39.0 to 39.9 in adult, unspecified whether serious comorbidity present Inject 0.5 mL (2.5 mg total) under the skin every 7 (seven) days for 4 doses. 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 Approaches towards weight loss are discussed, including burning more calories than one takes in by portion control and regular exercise with an emphasis on duration rather than intensity . Chronic cough 12/02/2021 Overview (04/19/2024): Last Assessment & Plan: Patient has persisting cough. Within normal pulmonary function test in the algorithm and work-up of chronic cough is indicated a CT scan of the chest. I have placed an order. In the meantime we will treat aggressively the postnasal drip with inhaled nasal steroids and antihistamines. Chest pain 10/27/2021 Overview (04/19/2024): Last Assessment & Plan: The patient reports dyspnea associated with chest discomfort since her COVID-19 infection in February 2020. Given her cardiac testing as noted above, she was treated medically for the question of moderate stenosis in the distal LAD seen on cardiac CT scan. She continues on aspirin, rosuvastatin and isosorbide. She does report her symptoms have improved since being on the isosorbide. She also notices improvement in her symptoms with the use of her inhalers. She reports her symptoms are worse when her asthma is flaring. 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 She will notify me if her symptoms worsen or change in any way. I have given her a lab slip to complete a fasting lipid panel and CMP. Dyspnea on exertion 10/12/2021 Overview (04/19/2024): Last Assessment & Plan: The patient has a history of dyspnea associated with chest discomfort since her COVID-19 infection in February 2020. She underwent cardiac testing including a nuclear stress test which showed no ischemia. She underwent echocardiogram which showed normal LV function and no obvious wall motion abnormalities seen. She also underwent a cardiac CT scan which showed no hemodynamically significant CAD with question of artifact in the distal LAD. She continues on aspirin, rosuvastatin and isosorbide. Her symptoms have improved. She reports her symptoms are worse when her asthma is flaring. She will continue to follow with her demolition worker given that her symptoms are likely related to her bronchial asthma. She will notify me if her symptoms worsen or change in any way. Patient advised to seek emergency medical attention by calling 911 if they were to develop severe dyspnea, chest pain that did not resolve with rest or nitroglycerin, or if they were to faint. 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 Axial and peripheral sx with synovitis. Only peripheral sx respond to prednisone. Trial and fail treatment with meloxicam 07/24-present, mult prior NSAIDS including naproxen, diclofenac, and ibuprofen. 07/24- try humira. 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 COVID-19 02/26/2020 Obstructive sleep apnea 01/18/2017 Overview (04/19/2024): SMS Treatment Polysomnogram: Date 11/09/2022; Wt 220#; BMI 44.43; SE 62%; SM 64%; REM 19%; CPAP @ 6-12: AHI 1.7, REM AHI 1.1, Central apneas 0; Obstructive apneas 0; Mixed apneas 0; hypopneas 8; average oxygen saturation 93% (lowest 86%); 1min<88% PL~21 [facility] Home Sleep Apnea Test: Date 01/12/2017; BMI 36.5; AHI 9; average oxygen saturation 93% (lowest 84% without saturations <88% for 5% or more of study) - Obstructive Sleep Apnea - mild; without sleep related hypoventilation by 2016 home sleep apnea test. Last Assessment & Plan: DME: [employer]. CPAP 13-20 cm H2O. Patient received in 01/2023. Obstructive sleep apnea 01/18/2017 Overview (05/23/2024): 02/02/2018 to 03/03/2018. CPAP@ 8-16/Average 12.4/Max 13.2. 20% compliant with using the machine for >4 hours/day. Average use is 1 hours a night with AHI 0.9. Shoulder tendonitis 12/07/2016 HTN (hypertension) 01/22/2014 Overview (04/19/2024): On HCTZ 25mg daily Last Assessment & Plan: Patient's blood pressure is well controlled today. 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 Asthma 05/31/2006 Allergic rhinitis 09/21/2005 Overview (04/19/2024): Last Assessment & Plan: Nasacort 1 puff twice a day has been prescribed in addition to [id number] antihistamines. Anxiety state 09/21/2005 Anxiety state 09/21/2005 Encounters Date Type Department Care Team Description 08/20/2024 Telephone Bariatric Surgery [address] [phone] Faustina Miller MD Med Refill (Zepbound w/titration) 08/03/2024 Telephone Adult Medicine [address] [phone] John Chavarria MD Forms/questionnaires 08/03/2024 Telephone Adult Medicine [address] [phone] John Chavarria MD Fitting for DME; Appointment 07/24/2024 4:30 PM EST Office Visit Bariatric Surgery [address] [phone] Faustina Miller MD Class 2 obesity due to excess calories with body mass index (BMI) of 39.0 to 39.9 in adult, unspecified whether serious comorbidity present (Primary Dx) 07/19/2024 Telephone Adult Medicine [address] [phone] Snow Murphy, RN Fitting for DME [facility] [address] [place] [address] Anat Moss NP Forms/questionnaires 07/16/2024 10:30 AM EST Office Visit Orthopedic Surgery [facility] 160 175 [facility] [address] [place] [address] Junior Mcdaniel MD Other tear of medial meniscus of left knee as current injury, initial encounter; Tear of medial meniscus of right knee, unspecified tear type, unspecified whether old or current tear, subsequent encounter 07/16/2024 Telephone Adult [address] [phone] John Chavarria MD Forms/questionnaires ([employer] Form ) 07/12/2024 1:30 PM EST Office Visit Adult [address] [phone] John Chavarria MD Other chronic pain (Primary Dx); Tear of medial meniscus of right knee, unspecified tear type, unspecified whether old or current tear, subsequent encounter; Rash; Lumbosacral spondylosis without myelopathy; Primary localized osteoarthrosis of lower leg, unspecified laterality; Polyarthropathy, inflammatory (CMS/HCC) 07/06/2024 Nurse Triage [facility] [address] [place] [phone] Veronica Rosas, DARLENE 06/19/2024 Telephone Bariatric Surgery [facility] 175 [facility] [address] [place] [address] Faustina Miller MD from Last 3 Months Immunizations Name Administration Dates Next Due Hepatitis B (Vbptoij-Q-Ceirt , Recombivax HB-Adult) 19yo and older 06/05/2004,12/04/2003 Influenza Quadravalent, MDCK , 0.5ml, preservative free (Flucelvax) 6mo and older 03/18/2022,09/13/2018 Influenza trivalent, 0.5mL, preservative free (Fluarix; FluLaval; Fluzone) ages 6mo and older (Afluria) 3 years and older 04/02/2015,04/22/2014 Influenza, Unspecified 04/22/2020 PPD Test 04/02/2015, 3,10/08/2011,11/25,10/11/2008,12/17/2005,03/22/2003 ,02/19/2001,02/17/2001 Pfizer SARS-CoV-2 COVID-19, mRNA, LNP-S, preservative free 07/09/2020,06/18/2020 Pneumococcal polysaccharide 23 valent (Pneumovax 23) 2yo and older 05/21/2014 Td Tetanus diptheria (Tdvax) 7yo and older 07/30/1998 Tdap Tetanus diptheria acell ular pertussis (Boostrix; Adacel) 7yo and older 10/11/2008 Surgical History Surgery Date Site/Laterality Comments HYSTERECTOMY 08/2019 PROCEDURE:HYSTERECTOMY;COMMENT:with BSO CHOLECYSTECTOMY PROCEDURE:CHOLECYSTECTOMY BREAST SURGERY 2014 PROCEDURE:BREAST SURGERY CHOLECYSTECTOMY PROCEDURE: DC LAPAROSCOPY SURG CHOLECYSTECTOMY; COMMENT: in OTHER SURGICAL HISTORY PROCEDURE: IMPLANT BREAST SILICONE/EQ; COMMENT: 2014 HYSTERECTOMY 08/10/2019 PROCEDURE: HISTORICAL TOTAL HYSTERECTOMY WITH BSO; COMMENT: [facility] 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 Medical History Medical History Date Comments Hypertension DX:Hypertension Ovarian cancer ([facility]) 08/2019 DX:Ovar tamika cancer ([facility]) Axial spondyloarthritis ([facility]) DX:Axial spondyloarthritis ([facility]) Granulosa cell tumor of ovary DX :Granulosa cell tumor of ovary JANIE (obstructive sleep apnea) DX :JANIE (obstructive sleep apnea) Shoulder tendonitis DX:Shoulder tendonitis Fibromyalgia DX:Fibromyalgia Polyarthropathy, inflammator y ([facility]) DX:Polyarthropathy, inflamma tory ([facility]) DJD (degenerative joint dise ase), lumbosacral DX:DJD (degenerative joint d isease), lumbosacral Osteoarthrosis involving lower leg DX:Osteoarthrosis involving lower leg Asthma DX:Asthma Allergic rhinitis DX:Allergic rh initis Anxiety DX:Anxiety Allergic rhinitis, cause unspecified DX:Allergic rhinitis, cause unspecified Osteoarthrosis, unspecified whether generalized or localized, lower leg 06/21/2006 DX:Osteoarthrosis, unspecified whether generalized or localized, lower leg Lumbosacral spondylosis with out myelopathy 10/17/2006 DX:Lumbosacral spondylosis w ithout myelopathy Unspecified asthma(493.90) DX:Un specified asthma(493.90) Anxiety state, unspecified DX:An xiety state, unspecified HTN (hypertension) 01/22/2014 DX:HTN (hyper tension) Obese 01/22/2014 DX:Obese Sleep apnea DX:Sleep apnea; COMMENT: diagnosed 2017 Ovarian cancer ([facility]) 08/10/2019 DX:Ovar tamika cancer ([facility]); COMMENT: 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 DX :Granulosa cell tumor of ovary History of ovarian cancer 08/08/2020 DX:His tory of ovarian cancer; COMMENT: History of ovarian cancer status post total hysterectomy with bilateral salpingooophrectomy for granulosa cell tumor 08/2019 Family History Medical History Relation Name Comments No Known Problems Aunt No Known Problems Brother Diabetes Father Rheum arthritis Father psoriasis Thyroid disease Father hypothyroidi sm, hypertension, heart issues Liver disease Maternal Grandfather Breast cancer Maternal Grandmother possib le Cancer Maternal Grandmother Glaucoma Mother Other: sarcoid Mother Rheum arthritis Mother hypertension , glaucoma, sarcoidosis Diabetes Other nephew Seizures Other nephew Liver disease Paternal Grandfather Diabetes Paternal Grandmother Other: heart disease Paternal Grandmother No Known Problems Sister No Known Problems Uncle Blindness Neg Hx Cataracts Neg Hx Macular degeneration Neg Hx Strabismus Neg Hx Relation Name Status Comments Aunt Brother Father Alive Maternal Grandfather Maternal Grandmother Mother Alive Other nephew Paternal Grandfather Paternal Grandmother Sister Alive x2 sister with low WBC count Uncle Social History Tobacco Use Types Packs/Day Years Used Date Smoking Tobacco: Never Smokeless Tobacco: Never Tobacco Cessation:Counseling Given: Not Answered Alcohol Use Standard Drinks/Week Comments No 0 (1 standard drink = 0.6 oz pur e alcohol) Comments No Sex and Gender Information Value Date Recorded Sex Assigned at Not on file Legal Sex Female 1:47 AM EST Gender Identity Not on file Sexual Orientation Not on file Obstetrics History Last Filed Vital Signs Vital Sign Reading Time Taken Comments Blood Pressure 120/76 07/24/2024 4:07 PM EST Pulse 60 07/24/2024 4:07 PM EST Temperature 36.6 ??C (97.8 ??F) 07/24/2024 4:07 PM ES T Respiratory Rate 14 07/12/2024 1:37 PM EST Oxygen Saturation 98% 06/05/2024 4:09 PM EST Inhaled Oxygen Concentration - - Weight 89.8 kg (198 lb) 07/24/2024 4:07 PM EST Height 149.9 cm (4' 11 ) 07/24/2024 4:07 PM EST Body Mass Index 39.99 07/24/2024 4:07 PM EST Plan of Treatment Upcoming Encounters Date Type Department Care Team (Late st Contact Info) Description 09/17/2024 10:00 AM EDT Consult Adult Medicine [address] [phone] John Chavarria MD [address] [place] [address] 10/04/2024 11:30 AM EDT Hospital Encounter [facility] Main OR [address] [place] [phone] Junior Mcdaniel MD [address] [place] [address] 10/04/2024 11:30 AM EDT - 10/04/2024 1:00 PM EDT Surgery [facility] Main OR [address] [place] [phone] Junior Mcdaniel MD [address] [address] LEFT KNEE ARTHROSCOPY [58531 (CPT??)] 10/09/2024 9:00 AM EDT Evaluation [address] [phone] Karley Koenig, PT 10/17/2024 11:30 AM EDT Office Visit Orthopedic Surgery [place] [address] [facility] [address] [place] [phone] Jyoti Eaton PA 175 [facility] [address] [place] [address] 10/19/2024 4:30 PM EDT Office Visit Adult Medicine [facility] [address] [place] [phone] John Chavarria MD [address] [place] [address] 11/06/2024 2:45 PM EDT Office Visit Bariatric Surgery [facility] 175 [facility] [address] [place] [phone] Faustina Miller MD 175 [facility] [address] [place] [address] 12/04/2024 4:00 PM EDT Office Visit Pulmonolgy - [facility] 175 [facility] [address] [place] [phone] Anat Moss NP 175 [facility] [address] [place] [address] Scheduled Procedures Name Priority Associated Diagnoses Date/Ti me ARTHROSCOPY KNEE Other tear of medial meniscus of left knee as current injury, initial encounter 10/04/2024 11:30 AM EDT Health Maintenance Due Date Last Done Comments Zoster Vaccines (1 of 2) 1993 Hepatitis B Vaccines (3 of 3 - 19+ 3-dose series) 07/31/2004 06/05/2004, 12/04/2003 Pneumococcal Vaccine: 50+ Years (2 of 2 - PCV) 05/21/2015 05/21/2014 Pneumococcal Vaccine: Pediatrics (0 to 5 Years) and At-Risk Patients (6 to 64 Years) (2 of 2 - PCV) 05/21/2015 05/21/2014 DTaP,Tdap,and Td Vaccines (3 - Td or Tdap) 10/11/2018 10/11/2008, 07/30/1998 COVID-19 Vaccine (3 - Pfizer risk series) 08/06/2020 07/09/2020, 06/18/2020 Colorectal Cancer Screening: Colonoscopy 06/12/2022 HIV Screening 06/12/2022 Social Influencers of Health Screening 06/12/2022 Breast Cancer Screening 01/19/2024 01/18/2022 Influenza Vaccine (#1) 2024 , 04/30/2021, 03/13/2021, Additional history exists Hypertension/CHF/CAD Annual BMP Blood Test 01/16/2025 01/17/2024, 01/17/2024 Depression Screening 02/01/2025 02/02/2024 Cervical Cancer Screening: HPV 06/02/2027 06/02/2022 Cholesterol Screening (Lipid Panel) 04/24/2029 04/24/2024, 03/16/2018 Hepatitis C Screening Completed 07/09/2020 HIB Vaccines Aged Out No longer eligi ble based on patient's age to complete this topic HPV Vaccines Aged Out No longer eligi ble based on patient's age to complete this topic Hepatitis A Vaccines Aged Out No long er eligible based on patient's age to complete this topic IPV Vaccines Aged Out No longer eligi ble based on patient's age to complete this topic MMR Vaccines Aged Out No longer eligi ble based on patient's age to complete this topic Meningococcal ACWY Vaccine Aged Out N o longer eligible based on patient's age to complete this topic Meningococcal B Vacine Aged Out No lo nger eligible based on patient's age to complete this topic RSV Immunization Patients Under 20 months Aged Out No longer eligible based on patient's age to complete this topic Varicella Vaccines Aged Out No longer eligible based on patient's age to complete this topic Procedures Procedure Name Priority Date/Time Associated Diagnosis Comments DEPRESSION SCREENING Routine 02/02/2024 ANNUAL BMP BLOOD TEST Routine 01/17/2024 HPV Routine 06/02/2022 SCREENING MAMMOGRAPHY BI 2-VIEW BREAST INC CAD Routine 01/18/2022 11:37 AM EDT Encounter for screening mammogram for malignant neoplasm of breast HEPATITIS C SCREENING Routine 07/09/2020 LIPID PANEL Routine 03/16/2018 from Last 3 Months or Most Recently Relevant to Health Maintenance Results * Depression Screening (02/02/2024) [facility] Depression Screening Abstracted [facility] Provider [facility] [employer] Final Result * Annual BMP Blood Test (01/17/2024) [facility] Annual BMP Blood Test Abstracted [facility] Provider [facility] Final Result * Cervical Cancer Screening: HPV (06/02/2022) [facility] Cervical Cancer Screening: HPV Negative, Abstracted [facility] Provider [facility] Final Result * SCREENING MAMMOGRAPHY BI 2-VIEW BREAST INC CAD (01/18/2022 11:37 AM EDT) Anatomical Region Laterality Modality Radiographic Stephanie ging 01/14/2022 10:3 5 AM EDT Narrative 01/19/2022 5:21 PM EDT This is a summary report. The complete report is available in the patient's medical record. If you cannot access the medical record, please contact the sending organization for a detailed fax or copy. Full field digital screening 2D and tomosynthesis mammography without and with implants displacement, reviewed with CAD and compared to previous. ??The breasts are composed of fatty and fibroglandular tissue. ??No suspicious mass, architectural distortion or suspicious calcifications are identified. IMPRESSION: : No mammographic evidence of malignancy. BIRADS 1-Negative; N. 5 year breast cancer risk assessment 0.5 % Lifetime breast cancer risk assessment 4.7 % Breast cancer risk category Low (<15%) Procedure Note Matilde Pereira MD - 06/22/2022 This is a summary report. The complete report is available in thepatient's medical record. If you cannot access the medical record, pleasecontact the sending organization for a detailed fax or copy. Full field digital screening 2D and tomosynthesis mammography without andwith implants displacement, reviewed with CAD and compared to previous.The breasts are composed of fatty and fibroglandular tissue. Nosuspicious mass, architectural distortion or suspicious calcifications areidentified. IMPRESSION: : No mammographic evidence of malignancy. BIRADS 1-Negative; N. 5 year breast cancer risk assessment 0.5 % Lifetime breast cancer risk assessment 4.7 % Breast cancer risk category Low (<15%) Renetta Medrano CNCathy IMG XR PROCEDURES Final Resu lt * Hepatitis C Screening (07/09/2020) Hepatitis C Screening Abstracted Historical Provider HEALTH MAINTENANCE Final Result * (ABNORMAL) Lipid panel (03/16/2018) LDL/HDL Ratio 4 0 - 4 Triglycerides 247(A) 0 - 150 mg/dL Cholesterol 184 0 - 200 mg/dL HDL 52 >=40 mg/dL LDL Cholesterol 83 0 - 100 mg/dL Blood Venous blood specimen / Unknown Historical Provider LAB BLOOD ORDERABLES Mahsa l Result from Last 3 Months or Most Recently Relevant to Health Maintenance Insurance [facility] [employer] Care Teams Sea Kayaking Guide Relationship Specialty Start Date End Date John hCavarria MD [address] [place] [id number] PCP - General 06/05/04
== END 2024-09-05 16:21 | disposition home or self-care (01) ==
PROVIDERS: PCP Internal Medicine; Visit Provider Nurse Practitioner Family
DX: G43.709 Chronic migraine without aura, not intractable, without status migrainosus (principal); G25.81 Restless legs syndrome; R20.2 Paresthesia of skin
CPT/HCPCS: 99214

== ENCOUNTER → 2024-09-05 15:34 | Outpatient (BNVA) | payer OTHER, SELFPAY | PROVIDERS: PCP Internal Medicine; Visit Provider Nurse Practitioner Family | DX: G43.709 Chronic migraine without aura, not intractable, without status migrainosus (principal); G25.81 Restless legs syndrome; R20.2 Paresthesia of skin; D64.9 Anemia, unspecified; E55.9 Vitamin D deficiency, unspecified; F41.9 Anxiety disorder, unspecified; M25.50 Pain in unspecified joint; M47.819 Spondylosis without myelopathy or radiculopathy, site unspecified; R25.2 Cramp and spasm; R74.01 Elevation of levels of liver transaminase levels; Z79.52 Long term (current) use 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 | CPT/HCPCS: 99212 ==

== ENCOUNTER 2025-03-12 08:04 | Outpatient (AMB) | payer MEDICARE, MEDICAID, SELFPAY ==
[2025-03-12 08:03] VITALS: BP 100/70; PULSE 79; O2SAT 99; BMI 33.1
--- NOTE | 2025-03-12 08:03 | A.OFFVIS_ITS ---
Vital Signs 03/12/25 08:03 Height 4 ft 11 in Weight 164 lb BMI 33.1 BP 100/70 Blood Pressure Location Rt brachial Position Sitting Pulse 79 Pulse Source Pulse Oximeter Pulse Oximetry (%) 99 Oxygen Delivery Method Room Air Intake Visit Reasons: 6 mo follow up Intake Note: Patient presents follow up paresthesia/migraine. EMG in chart Art Handler Required: No Accompanied by: Self / Same As Patient Allergies ixekizumab (From Taltz Autoinjector) Allergy (Severe, Verified 03/12/25 08:34) Anaphylaxis adalimumab (From Humira) Allergy (Mild, Verified 03/12/25 08:34) Itching Medication List - Last Reconciled 03/12/25 by MICHELLE Mcclure albuterol sulfate 90 mcg/actuation 2 puffs inhalation QID PRN amitriptyline 75 mg (3 x 25 mg) PO BEDTIME 30 days aspirin 81 mg PO DAILY baclofen 10 mg PO BID PRN 90 days ergocalciferol (vitamin D2) (Vitamin D2) 1,250 mcg PO QWEEK fluticasone propion-salmeterol 230-21 mcg/actuation (Advair HFA) 2 puffs inhalation BID furosemide 40 mg PO DAILY isosorbide mononitrate ER 30 mg PO DAILY loratadine 10 mg PO DAILY lorazepam 0.5 mg PO QPM magnesium oxide 400 mg PO BEDTIME 30 days meclizine 25 mg PO TID PRN metoclopramide HCl 5 mg PO TID montelukast 10 mg PO DAILY omeprazole 20 mg PO DAILY ondansetron HCl mg PO oxycodone 5 mg PO QID PRN riboflavin (vitamin B2) 400 mg PO DAILY 30 days ropinirole 0.5 mg (2 x 0.25 mg) PO TID 30 days rosuvastatin 5 mg PO DAILY sumatriptan succinate 50 - 100 mg orally at onset of headache, may repeat in 2 hrs PRN; max 2 tabs per day or 4 tabs/week (may take with Ibuprofen) 30 days valacyclovir 500 mg PO DAILY HPI Comments Details: 50-year-old female presents for follow-up of migraine and restless leg syndrome. She denies any significant interval medical history changes; however, she reports that she now has had allergic reactions to both Humira and Taltz, which her mixing machine attendant prescribed. Additionally, during the [facility] ER evaluation for the response to the Taltz, a pulmonary nodule was identified on chest imaging. She has already had a follow-up with her PCP for this. She reports that overall her headaches are better. She is compliant with magnesium, amitriptyline, and riboflavin. Her previous insurance denied the request for Ubrelvy, as they did not feel her blood pressure was uncontrolled, though she was given a 1-month supply. She has lost weight, and her blood pressure has been more normotensive, so she was trialed on sumatriptan. She states that the Ubrelvy is more effective than the sumatriptan. She reports that the increase in ropinirole has been helpful for her restless leg syndrome, and she is tolerating it well. She states her sleep apnea clinic has advised her to undergo a follow-up sleep study, as she has lost weight and the mask and pressures are not as tolerated as before. Previous Diagnostic Studies - Nerve conduction study: Bilateral lower extremity normal. 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, inflammatory HTN (hypertension) Shoulder tendonitis Axial spondyloarthritis Ovarian cancer Erythrocytosis Gastroparesis Surgical History (Updated 03/12/25 @ 08:13 by Reina Cruz CMA) H/O left knee surgery S/P breast implant, saline History of carpal tunnel release History of total hysterectomy with bilateral salpingo-oophorectomy (BSO) Hx of cholecystectomy Family History Mother Glaucoma Rheumatoid arthritis Hypertension Sarcoidosis Father History of thyroid disorder Hypertension Diabetes Rheumatoid arthritis Psoriasis Heart disease Paternal Grandmother Diabetes Heart disease Social History Household Members: None Alcohol intake: never Patient Tobacco Use Status: Never used Tobacco Current occupational status: unemployed Current occupation: right hand Physical Exam Vital Signs: Last Vital Signs Pulse 79 03/12/25 08:03 BP 100/70 03/12/25 08:03 Pulse Ox 99 03/12/25 08:03 Oxygen Delivery Method Room Air 03/12/25 08:03 BMI result Body Mass Index 33.1 Const General: cooperative and no acute distress Orientation/consciousness: patient oriented x3 Resp Effort & Inspection: normal respiratory effort and able to speak in complete sentences Neuro General: patient oriented x3 Cranial nerves: Yes CN's II-XII intact bilaterally Cognition (Neuro): normal cognition Psych Appearance: grossly normal Mental Status: mental status grossly normal Speech and movement: Normal speech and movement present Affect: normal affect Attitude: cooperative Assessment & Plan Assessment & Plan (1) Chronic migraine without aura: Code(s): G43.709 - Chronic migraine without aura, not intractable, without status migrainosus Category: Medical Qualifiers: Status migrainosus presence: without status migrainosus Intractability: not intractable Qualified Code(s): G43.709 - Chronic migraine without aura, not intractable, without status migrainosus (2) Restless leg syndrome: Code(s): G25.81 - Restless legs syndrome Category: Medical (3) Paresthesia of both lower extremities: Code(s): R20.2 - Paresthesia of skin Category: Medical Plan Allergy list updated. Instructed her on how to add allergies and health information to her iPhone, which emergency medical services can access. Plan For RLS and sleep: * Reviewed interval labs-results overall unremarkable * Continue ropinirole 0.5 mg t.i.d.. * May use baclofen 10 mg b.i.d. as needed for muscle spasm /cramps. * Follow-up sleep study and CPAP therapy per her outside provider. For overall headache management: Continue to optimize good self-care, including but not limited to maintaining a healthy diet, adequate fluid intake, adequate sleep, and engaging in regular physical activity. For acute headache treatment: * Discontinue sumatriptan-not fully effective * Trial Rizaatriptan 10mg tab, 1/2 - 1 tab (5-10mg) at onset of headache, may repeat in 2 hours. Max of 3 tabs (30mg) per 24 hours. * You may take Rizaatriptan with OTC Tylenol 650-1,000mg every 4-6 hours, Ibuprofen (liquid gels) 600mg every 6 hours, or Naproxen (liquid gels) 440mg q 12 hrs prn. * Potential adverse effects of triptans, include but are not limited to nausea, fatigue, chest tightness/tingling (usually passes within a few minutes), medication overuse headaches. * May continue current supply of Ubrogepant (Ubrelvy) 100mg tab, 1/2 - 1 tab (50-100mg) at onset of headache, may repeat in 2 hours. Max of 2 tabs (200mg) per 24 hours. * Advised that her new insurance will likely not cover this at this time, as her blood pressure is now consistently normotensive and she has not yet had a sufficient number of Triptan trials. * May adjunct with OTC Tylenol 650mg q 4 hours, Ibuprofen 600mg q 6 hours, or Naproxen 440mg q 12 hrs as needed. Potential adverse effects, include but are not limited to fatigue, nausea, dry mouth, constipation Acute migraine treatment contraindications: DHE due to HTN/HLD For headache prevention medication: * Continue Riboflavin 400mg qam. * Continue Magnesium 400mg qhs. * Continue Amitriptyline 75mg qhs. Preventative migraine treatment contraindications: All beta-blockers due to asthma diagnosis Pt to follow-up in 6 months or sooner prn. Medications: New rizatriptan max 2 tabs per day or 4 tabs per week 5 - 10 mg (0.5 - 1 x 10 mg) PO Q2H PRN 12 tabs 3RF migraine headache 21 days Discontinued sumatriptan succinate Discontinued Reason: Doctor's Order (0.5 - 1 x 100 mg) 50 - 100 mg orally at onset of headache, may repeat in 2 hrs PRN; max 2 tabs per day or 4 tabs/week (may take with Ibuprofen) 30 days 12 tabs 6RF migraine headache Coding Level of Care Code Est Pt Level 4 (03636) Diagnoses Chronic migraine without aura without status migrainosus, not intractable G43.709 Status migrainosus presence: without status migrainosus Intractability: not intractable Restless leg syndrome G25.81 Paresthesia of both lower extremities R20.2
== END 2025-03-12 08:45 | disposition home or self-care (01) ==
PROVIDERS: PCP Internal Medicine; Visit Provider Nurse Practitioner Family
DX: G43.709 Chronic migraine without aura, not intractable, without status migrainosus (principal); G25.81 Restless legs syndrome; R20.2 Paresthesia of skin
CPT/HCPCS: 99214

== ENCOUNTER → 2025-03-12 08:04 | Outpatient (BNVA) | payer MEDICARE, MEDICAID, SELFPAY | PROVIDERS: PCP Internal Medicine; Visit Provider Nurse Practitioner Family | DX: G43.709 Chronic migraine without aura, not intractable, without status migrainosus (principal); G25.81 Restless legs syndrome; R20.2 Paresthesia of skin | CPT/HCPCS: 99212 ==